=== PATIENT | female | born 1940 | race African-American/Black ===

== ENCOUNTER 2016-09-17 12:26 | Emergency (ER) | payer MEDICARE, OTHER ==
[~2016-09-17] VITALS: Ht 149.9 cm; Wt 73.0 kg
[~2016-09-17 12:26] MED LIST: ALBU0.63 NEB; ALBUAER3 INH; ASPI81 PO; CALTTAB5 PO; CARV6.252 PO; FORT200S; FURO20 PO; GABA100C4 PO; IMDU30TA PO; LORTA5 PO; NAPR250T PO; NEBUMIS6 INH; NITR.3 SL; NORV10TA PO; PERI8.6T PO; PROP40TA3 PO; PULM180I INH; PULM90IN INH; SIMV40TA PO; VITA500015 PO; ZOCO40TA PO
[2016-09-17 12:29] VITALS: BP 161/73; PULSE 70; RESP 16; TEMP 97.7; O2SAT 95
[2016-09-17] MEDS ORDERED: ONDANSETRON HCL 4 MG/2 ML VIAL IV PUSH ONE (14:15)
[2016-09-17] MEDS ORDERED: MORPHINE SULFATE 4 MG/ML INJ IV PUSH ONE (14:15)
--- NOTE | 2016-09-17 14:29 | PD ---
HPI Chief Complaint: Fall Time Seen by Provider: 14:24 Travel History International Travel<30 days: No Contact w/Intl Traveler<30days: No Traveled to known affect area: No History of Present Illness HPI 76-year-old female that presents to the ED for evaluation of pain to her left ribs and back. Per patient she's had this for the past 2 weeks. Per patient she had a trip and fall about 2 weeks ago. Per patient she landed on her left side. She states that she did not see anybody for this during that time and went to see her regular doctor last week and was given Tylenol 3 but not resolution of the symptoms. Per patient the pain gets worse with cough, laughing, deep breaths. Patient and family members are mainly concerned because the pain is not improving. Patient states that she used to take blood thinners but daughter is not sure. She does note that she used to take blood thinners for heart problems but family is not really sure if patient still taking them, patient tells me that she's been off of them for almost a year. They do tell me that she did hit her head but they weren't too concerned about it. She's been acting normal. Patient has full range of motion of the upper and lower extremities with no pain. She denies any lower back pain other than her chronic back pain from a previous fracture. She is able to ambulate. She states that the pain gets to be severe 8 out of 10 and gets worse with movement. Pain medication given to by her doctor as well as OTC anti- inflammatories seem to help with the pain but done completely alleviated. Patient was brought here for evaluation of the pain. Per patient the pain wasn' t too bad the first day but worsened on the second day. PFSH Past Medical History Arthritis: No Asthma: Yes Autoimmune Disease: No Blood Disorders: No Anxiety: No Depression: No Heart Rhythm Problems: Yes (PSVT) Cancer: No Cardiovascular Problems: Yes (HTN) High Cholesterol: No Chemotherapy: No Chest Pain: Yes Congestive Heart Failure: No COPD: No Cerebrovascular Accident: No Diabetes: No Diminished Hearing: No Endocrine: No Gastrointestinal Disorders: No GERD: No Glaucoma: No Genitourinary: No Headaches: No Hepatitis: No Hiatal Hernia: No Heparin Induced Thrombocytopen: No Hypertension: Yes Immune Disorder: No Implanted Vascular Access Dvce: No Kidney Stones: No Musculoskeletal: No Neurologic: No Psychiatric: No Reproductive: No Migraines: No Myocardial Infarction: No Radiation Therapy: No Renal Failure: No Seizures: No Sickle Cell Disease: No Sleep Apnea: No Thyroid Disease: No Ulcer: No Menopausal: Yes Past Surgical History Abdominal Surgery: Yes (APPY. AND 2 HERNIA REPAIRS.) AICD: No Appendectomy: Yes Arteriovenous Shunt: No Cholecystectomy: No Insulin Pump: No Joint Replacement: No Pacemaker: No Other Surgery: Yes Social History Alcohol Use: Yes (BEER EVERY NOW AND THEN ) Tobacco Use: No Substance Use: No Allergies-Medications (Allergen,Severity, Reaction): Coded Allergies: Propranolol (Verified Allergy, Severe, Dizziness, 09/03/16) Lisinopril (Verified Allergy, Unknown, 09/03/16) Reported Meds & Prescriptions Reported Meds & Active Scripts Active Lortab (Hydrocodone-Acetaminophen) 5-325 Mg Tab 1 Tab PO Q6H PRN Azithromycin 250 Mg Tab 250 Mg PO DIRECTED Take 2 tabs (500 mg) on day 1 then 1 tab daily x 4 days. Pulmicort Flexhaler (Budesonide Powder Inh) 180 Mcg/Act Inhp 180 Mcg INH Q12HR Naproxen 250 Mg Tab 250 Mg PO BID Pulmicort Flexhaler (Budesonide Powder Inh) 90 Mcg/Act Inhp 90 Mcg INH Q12HR Proair Hfa 8.5 GM Inh (Albuterol Sulfate) 90 Mcg/Act Aer 1 Puff INH Q4H PRN 108 mcg/actuation Simvastatin 40 Mg Tab 40 Mg PO HS Propranolol (Propranolol HCl) 40 Mg Tab 40 Mg PO Q12HR Accuneb 0.63 mg/3 ml (Albuterol Sulfate) 0.63 Mg/3 Ml Neb 0.63 Mg NEB DIRECTED Nebulizer (Miscellaneous Medication) Mis 1 Unit INH DIRECTED Carvedilol 6.25 mg (Carvedilol) 6.25 Mg Tab 1 Tab PO BID Gabapentin 100 Mg Cap 100 Mg PO HS Calcium Carbonate 1,500 Mg Tab 1,500 Mg PO BID Vitamin D3 (Cholecalciferol) 5,000 Unit Cap 5,000 Unit PO DAILY Norvasc (Amlodipine Besylate) 10 Mg Tab 1 Tab PO DAILY Diana 5-325 mg (Hydrocodone-Acetaminophen 5-325 mg) 5 mg/325 mg Tab 1 Tab PO Q4H PRN Imdur (Isosorbide Mononitrate) 30 Mg Tab 30 Mg PO DAILY Lasix 20 Mg Tab (Furosemide) 20 Mg Tab 20 Mg PO DAILY Fortical (Calcitonin [place]) 200 Mg/Act Spr 1 [place] NA DAILY Tiffany-Colace 8.6-50 mg (Sennosides-Docusate Sodium) 1 Tab Tab 1 Tab PO BID PRN Zocor 40 mg (Simvastatin) 40 Mg Tab 1 Tab PO HS 30 Days Nitrostat (Nitroglycerin) 0.3 Mg Subl 0.3 Mg SL PRN FOR CHEST PAIN Aspirin 81 Mg Tab 81 Mg PO DAILY Review of Systems General / Constitutional: No: Fever, Chills, Weight Gain, Weight Loss, Other Eyes: No: Diploplia, Blurred Vision, Photophobia, Drainage, Redness, Foreign Body Sensation, Pain, Tearing, Blind Spots, Visual changes, Blindness, Other HENT: No: Headaches, Vertigo, Lightheadedness, Sore Throat, Rhinitis, Rhinorrhea, Congestion, Nosebleed, Neck Stiffness, Neck Pain, Masses, Gingival Bleeding, Dental Difficulties, Ear Discharge, Earache, Other Cardiovascular: Positive: Chest Pain or Discomfort, No: Palpitations, Irregular Rhythm, Tachycardia, Diaphoresis, Syncope, Dyspnea on exertion, Varicosities, Edema, Cyanosis, Varicosities, Phlebitis, Claudication, Other Respiratory: No: Cough, Shortness of Breath, Wheezing, Sneezing, Orthopnea, Hemoptysis, Stridor, Night Sweats, Pleuritic Pain, Other Gastrointestinal: No: Nausea, Vomiting, Diarrhea, Abdominal Pain, Hematemesis, Hematochezia, Constipation, Changes in Bowel Habits, Indigestion, Dysphagia, Loss of Appetite, Other Genitourinary: No: Urgency, Frequency, Dysuria, Nocturia, Hematuria, Decreased Urinary Output, Oliguria, Hesitancy, Dribbling, Incontinence, Pelvic Pain, Flank Pain, Dyspareunia, Discharge, Dysmenorrhea, Menorrhagia, Metorrhagia, Vaginal Bleeding, Other Skin: No Rash, No Itching, No Dryness, No Lumps, No Hives, No Change in Pigmentation, No Change in nails, No Alopecia, No Lesions, No Breast Lumps, No Breast Tenderness, No Breast Swelling, No Other Neurologic: No: Weakness, Dizziness, Syncope, Focal Abnormalities, Coordination Problem, Tremor, Ataxia, Headache, Change in Mentation, Slurred Speech, Paresthesia, Incontinence, Seizures, Sensory Disturbance, Other Psychiatric: No: Anxiety, Depression, Suicidal Ideations, Disorder of Thought, Mood Disorder, Substance Abuse, Homicidal Ideation, Other Endocrine: No: Heat Intolerance, Cold Intolerance, Polyuria, Polydipsia, Other Hematologic/Lymphatic: No: Easy Bruising, Lymph Node Enlargement, Other Physical Exam Narrative GENERAL: SKIN: Warm and dry. HEAD: Atraumatic. Normocephalic. EYES: Pupils equal and round. No scleral icterus. No injection or drainage. ENT: No nasal bleeding or discharge. Mucous membranes pink and moist. Tongue is midline. No uvula deviation. NECK: Trachea midline. No JVD. CARDIOVASCULAR: Regular rate and rhythm. No murmurs, S3, S4. RESPIRATORY: No accessory muscle use. Clear to auscultation. Breath sounds equal bilaterally. GASTROINTESTINAL: Abdomen soft, non-tender, nondistended. Hepatic and splenic margins not palpable. MUSCULOSKELETAL: Extremities without clubbing, cyanosis, or edema. No obvious deformities. Full range of motion of the upper and lower extremities bilaterally. Patient has no obvious deformity on the left chest. Patient does have some reproducible pain with deep breaths as well as with touch but no obvious injury. NEUROLOGICAL: Awake and alert. No obvious cranial nerve deficits. Motor grossly within normal limits. Five out of 5 muscle strength in the arms and legs. Normal speech. PSYCHIATRIC: Appropriate mood and affect; insight and judgment normal. Data Data Last Documented VS Vital Signs Date Time Temp Pulse Resp B/P Pulse Ox O2 Delivery O2 Flow Rate FiO2 09/17/16:17 69 18 96 Room Air 09/17/16 12:29 97.7 161/73 Orders Electrocardiogram (09/17/16 14:14) Complete Blood Count With Diff (09/17/16 14:14) Basic Metabolic Panel (Bmp) (09/17/16 14:14) Prothrombin Time / Inr (Pt) (09/17/16 14:14) Act Partial Throm Time (Ptt) (09/17/16 14:14) Troponin I (09/17/16 14:14) Ribs, Uni (W/Exp Cxr-Min 3vw) (09/17/16 ) Morphine Inj (Morphine Inj) (09/17/16 14:15) Ondansetron Inj (Zofran Inj) (09/17/16 14:15) Ct Brain W/O Iv Contrast(Rout) (09/17/16 ) Ct Thorax/ Chest W Iv Contrast (09/17/16 ) Iohexol 350 Inj (Omnipaque 350 Inj) (09/17/16 16:50) Labs Laboratory Tests Test 09/17/16 14:30 White Blood Count 6.2 TH/MM3 Red Blood Count 4.52 MIL/MM3 Hemoglobin 14.5 GM/DL Hematocrit 41.8 % Mean Corpuscular Volume 92.5 FL Mean Corpuscular Hemoglobin 32.1 PG Mean Corpuscular Hemoglobin 34.7 % Concent Red Cell Distribution Width 14.1 % Platelet Count 271 TH/MM3 Mean Platelet Volume 7.9 FL Neutrophils (%) (Auto) 54.0 % Lymphocytes (%) (Auto) 33.3 % Monocytes (%) (Auto) 12.1 % Eosinophils (%) (Auto) 0.2 % Basophils (%) (Auto) 0.4 % Neutrophils # (Auto) 3.3 TH/MM3 Lymphocytes # (Auto) 2.1 TH/MM3 Monocytes # (Auto) 0.8 TH/MM3 Eosinophils # (Auto) 0.0 TH/MM3 Basophils # (Auto) 0.0 TH/MM3 CBC Comment DIFF FINAL Differential Comment Prothrombin Time 10.7 SEC Prothromb Time International 1.0 RATIO Ratio Activated Partial 25.6 SEC Thromboplast Time Sodium Level 139 MEQ/L Potassium Level 4.2 MEQ/L Chloride Level 105 MEQ/L Carbon Dioxide Level 26.3 MEQ/L Anion Gap 8 MEQ/L Blood Urea Nitrogen 7 MG/DL Creatinine 0.69 MG/DL Estimat Glomerular Filtration 100 ML/MIN Rate Random Glucose 101 MG/DL Calcium Level 8.8 MG/DL Troponin I LESS THAN 0.02 NG/ML MDM Medical Decision Making Medical Screen Exam Complete: Yes Emergency Medical Condition: Yes Medical Record Reviewed: Yes Interpretation(s) Last Impressions Ribs X-Ray 09/17/16 0000 Signed Impressions: Service Date/Time: September 14:52 - CONCLUSION: Interstitial lung disease and left basilar airspace disease. No evidence of pneumothorax. No evidence of displaced rib fracture. Marcellus Slade MD Head CT 09/17/16 0000 Signed Impressions: Service Date/Time: September 16:03 - CONCLUSION: 1. White matter ischemic changes. No acute intracranial abnormality. Santos Wise MD CBC & BMP Diagram 09/17/16 14:30 CT of the chest show chronic changes but no sign of acute disease. Lung nodule was noted and recommendation is for follow-up in [address] Also nodule on the thyroid noted. Coags within normal limits. EKG shows sinus rhythm with no sign of acute ischemia or arrhythmia. Read by me and attending. Troponin negative. Differential Diagnosis Chest pain versus rib fracture versus contusion versus costochondritis versus less likely but still possible ACS Narrative Course 76-year-old female that presents to the ED for evaluation of left chest pain after fall. Patient was properly examined and was found to have signs and symptoms consistent with appears to be traumatic chest injury. Less likely ACS the patient does tell me that the pain started worse on the second day in the first. At this time we'll do imaging as well as labs to rule out any sign of ACS as well as fracture or internal injuries. Patient is not really sure if she is taking the blood thinner or not. CT of the head was ordered secondary to head injury. She is given IV pain medications. Labs and imaging were essentially unremarkable. Patient is uncertain chronic changes on the CT as well as x-ray but no sign of acute disease. Patient possibly has early pneumonitis. Case discussed in my attending who recommends treating with antibiotics and pain medication. Patient was reassured. Patient was told to follow up closely with PCP. See ED for any worsening symptoms. Continue anti- inflammatories as needed. Diagnosis Primary Impression: Contusion of rib on left side Qualified Code: S20.212A - Contusion of rib on left side, initial encounter Additional Impression: Pneumonitis Patient Instructions: General Instructions, Narcotic given in the ED Additional Instructions: Take medications as prescribed. Follow-up with PCP. See ED for any worsening symptoms. Do not drink or drive while taking pain medication. Apply ice or heat as needed for pain Med/Other Pt SpecificInfo: Prescription(s) given Scripts Hydrocodone-Acetaminophen (Lortab)5-325 Mg Tab1 Tab PO Q6H PRN (PAIN) #20 TAB Prov:Fred Delgado MD 09/17/16 Azithromycin 250 Mg [id number] Mg PO DIRECTED #6 TAB Take 2 tabs (500 mg) on day 1 then 1 tab daily x 4 days. Prov:Fred Delgado MD 09/17/16 Disposition: 01 DISCHARGE HOME Condition: Connor Wheeler Sep 17, 2016 14:29
[2016-09-17 14:41] LABS: AUTOMATED NEUTROPHIL # 3.3 TH/MM3 (1.8-7.7); BASOPHIL % 0.4 % (0.0-2.0); EOSINOPHIL % 0.2 % (0.0-4.0); HEMATOCRIT 41.8 % (35.0-46.0); HEMO FLAGS DIFF FINAL; LYMPH % 33.3 % (9.0-44.0); LYMPHOCYTE # 2.1 TH/MM3 (1.0-4.8); MEAN CELL VOLUME 92.5 FL (80.0-100.0); MEAN CORPUSCULAR HEMOGLOBIN 32.1 PG (27.0-34.0); MEAN CORPUSCULAR HGB CONC 34.7 % (32.0-36.0); MONO % 12.1 % (0.0-8.0); PLATELET COUNT 271 TH/MM3 (150-450); RED BLOOD COUNT 4.52 MIL/MM3 (4.00-5.30); RED CELL DISTRIBUTION WIDTH 14.1 % (11.6-17.2); WHITE BLOOD COUNT 6.2 TH/MM3 (4.0-11.0)
[2016-09-17 14:50] LABS: APTT (PATIENT) 25.6 SEC (24.3-30.1); PROTHROMBIN TIME - PATIENT 10.7 SEC (9.8-11.6)
[2016-09-17 15:28] LABS: ANION GAP 8 MEQ/L (5-15); BICARBONATE 26.3 MEQ/L (21.0-32.0); BLOOD UREA NITROGEN 7 MG/DL (7-18); CHLORIDE 105 MEQ/L (98-107); GLOMERULAR FILTRATION RATE 100 ML/MIN (>89); POTASSIUM 4.2 MEQ/L (3.5-5.1); SODIUM (NA) 139 MEQ/L (136-145)
--- NOTE | 2016-09-17 15:46 | RADRPT ---
EXAM DATE/TIME: 09/17/2016 14:52 [facility] COMPARISON: No previous studies available for comparison. INDICATIONS : Fall 3 days ago. Chest pain. MEDICAL HISTORY : None. SURGICAL HISTORY : None. ENCOUNTER: Initial ACUITY: 3 days PAIN SCORE: 6/10 LOCATION: Left chest FINDINGS: Multiple views of the left ribs were performed. There is no evidence of displaced fracture. No dest ructive lesions or areas of periosteal thickening are seen. Expiratory view of the chest is negative for pneumothorax. Diffuse interstitial prominence is evident throughout both lungs. Airspace disease is identified the left base. The mediastinal structures are midline. CONCLUSION: Interstitial lung disease and left basilar airspace disease. No evidence of pneumothorax. No evidence of displaced rib fracture. Marcellus Slade MD on September 17, 2016 at 15:29 Board Certified Radiologist. This report was verified electronically.
[2016-09-17] MEDS ORDERED: IOHEXOL 350 MG/ML 10 ML VIAL (for RAD DIAG) IV ONE (16:50)
--- NOTE | 2016-09-17 16:58 | RADRPT ---
EXAM DATE/TIME: 09/17/2016 16:03 [facility] COMPARISON: No previous studies available for comparison. INDICATIONS : Trauma, fall to weeks ago. RADIATION DOSE: 56.35 CTDIvol (mGy) MEDICAL HISTORY : Chronic obstructive pulmonary disease. Hypertension. SURGICAL HISTORY : None. ENCOUNTER: Initial ACUITY: 2 weeks PAIN SCALE: 3/10 LOCATION: cranial TECHNIQUE: Multiple contiguous axial images were obtained of the head. Using automated exposure control and adj ustment of the mA and/or kV according to patient size, radiation dose was kept as low as reasonably a chievable to obtain optimal diagnostic quality images. FINDINGS: CEREBRUM: The ventricles are normal for age. No evidence of midline shift, mass lesion, hemorrhage or acute in farction. No extra-axial fluid collections are seen. POSTERIOR FOSSA: The cerebellum and brainstem are intact. The 4th ventricle is midline. The cerebellopontine angle i s unremarkable. EXTRACRANIAL: The visualized portion of the orbits is intact. SKULL: The calvaria is intact. No evidence of skull fracture. CONCLUSION: 1. White matter ischemic changes. No acute intracranial abnormality. Santos Wise MD on September 17, 2016 at 16:53 Board Certified Radiologist. This report was verified electronically.
--- NOTE | 2016-09-17 17:05 | RADRPT ---
EXAM DATE/TIME: 09/17/2016 16:07 [facility] COMPARISON: No previous studies available for comparison. INDICATIONS : Fall two weeks ago,painleft side of chest. IV CONTRAST: 70 cc Omnipaque 350 (iohexol) IV RADIATION DOSE: 5.95 CTDIvol (mGy) MEDICAL HISTORY : Chronic obstructive pulmonary disease. Hypertension. SURGICAL HISTORY : None. ENCOUNTER: Initial ACUITY: 2 weeks PAIN SCALE: 3/10 LOCATION: Left chest TECHNIQUE: Volumetric scanning of the chest was performed. Using automated exposure control and adjustment of t he mA and/or kV according to patient size, radiation dose was kept as low as reasonably achievable to obtain optimal diagnostic quality images. FINDINGS: LUNGS: There is no consolidation or pneumothorax. Faint ground glass opacities identified throughout both dequan ngs. 2 subcentimeter nodules measuring 4-5 mm are identified in the right lower lobe. PLEURA: There is no pleural thickening or pleural effusion. MEDIASTINUM: The heart and great vessels demonstrate no acute abnormality. There is no mediastinal or hilar lymph adenopathy. AXILLAE: Within normal limits. No lymphadenopathy. SKELETAL: Within normal limits for patient age. MISCELLANEOUS: Large hypodense mass is identified left thyroid lobe. It measures 3.4 cm in diameter. Small gallstone s are identified in the gallbladder. CONCLUSION: Subtle bilateral groundglass parenchymal opacities characteristic of either early mil d interstitial edema or pneumonitis. 2 subcentimeter nodules in the right lower lobe; 6 month followup recommended. 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 No evidence of acute traumatic injury such as pneumothorax, displaced rib fracture or vascular injury . Thoracic spine is intact. Marcellus Slade MD on September 17, 2016 at 16:59 Board Certified Radiologist. This report was verified electronically.
[2016-09-17] MEDS ORDERED: HYDR-3533 PO (17:15)
[2016-09-17] MEDS ORDERED: AZIT250T3 PO (17:15)
[2016-09-17 17:59] VITALS: BP 134/78
--- NOTE | 2016-09-18 19:59 | EKG ---
Date Performed: 09/17/2016 Time Performed: 14:51:11 PTAGE: 76 years EKG: Sinus rhythm BORDERLINE LEFT AXIS DEVIATION NONSPECIFIC T-WAVE ABNORMALITY POOR R WAVE PROGRESSION BORDERLINE ECG PREVIOUS TRACING : 08/16/2009 06.05 Compared to prior tracing no significant change DOCTOR: Josué Sinclair Interpretating Date/Time 09/18/2016 19:58:38
[2016-10-23] MEDS ORDERED: BUTA1CAP PO (10:52)
[2016-10-23] MEDS ORDERED: PROP60TA PO (10:53)
[2016-11-23] MEDS ORDERED: SIMV40TA PO (12:06)
[2016-12-29] MEDS ORDERED: NAPR250T PO (09:21)
[2016-12-30] MEDS ORDERED: FURO20TA PO (10:22)
== END 2016-09-17 17:15 | disposition home or self-care (01) ==
LOC: NEPE 12:26
DX: S20.212A Contusion of left front wall of thorax, initial encounter (principal); J18.9 Pneumonia, unspecified organism; I47.1 Supraventricular tachycardia; I10 Essential (primary) hypertension
CPT/HCPCS: 70450; 71101; 71260; 80048; 84484; 85025; 85610; 85730; 93005; 96374; 96375; 99284; J2270; J2405; Q9967

== ENCOUNTER 2017-06-25 10:20 | Inpatient (IN) | payer MEDICARE, OTHER ==
[~2017-06-25 10:20] MED LIST changes: -ALBUAER3 INH; +AMLO10TA2 PO; +BUTA1CAP PO; -FURO20 PO; +FURO20TA PO; -IMDU30TA PO; +ISOS30TA3 PO; -NAPR250T PO; +NAPR250T4 PO; -NEBUMIS6 INH; -NORV10TA PO; -PERI8.6T PO; -PROP40TA3 PO; +PROP60TA PO; +VENTAER INH; -ZOCO40TA PO
[2017-06-25 10:23] VITALS: BP 140/66; PULSE 73; RESP 18; TEMP 101.7; O2SAT 90
[2017-06-25] MEDS ORDERED: methylPREDNISolone SOD SUCC 125 MG/2 ML VIAL IV PUSH ONE (10:45)
[2017-06-25] MEDS ORDERED: AZITHROMYCIN INJ 500 MG in SODIUM CHLOR 0.9% 250 ML INJ 250 ML IV STA (10:45)
[2017-06-25] MEDS ORDERED: cefTRIAXone INJ 2,000 MG in SODIUM CHLORIDE 0.9% INJ 100 ML IV STA (10:45)
[2017-06-25] MEDS ORDERED: ACETAMINOPHEN 325 MG TAB PO ONE (10:45)
[2017-06-25] MEDS ORDERED: SODIUM CHLOR 0.9% 1000 ML INJ 1,000 ML IV ONE (10:45)
[2017-06-25] MEDS: RESP: ALBUTEROL 2.5 MG/IPRATROPIUM 0.5 MG NEB (SCH) INH ×2 (10:58→10:59)
[2017-06-25 10:59] VITALS: O2SAT 93
--- NOTE | 2017-06-25 11:08 | RADRPT ---
EXAM DATE/TIME: 06/25/2017 10:48 [facility] COMPARISON: No previous studies available for comparison. INDICATIONS : Short of breath MEDICAL HISTORY : None. SURGICAL HISTORY : None. ENCOUNTER: Initial ACUITY: 1 day PAIN SCORE: Non-responsive. LOCATION: Bilateral chest FINDINGS: Left lower lobe airspace consolidation and likely trace pleural effusion. Cardiac silhouette is in th e upper limits of normal in size. Bony thorax is intact. CONCLUSION: 1. Left lower lobe air space consolidation and likely trace pleural effusion. Findings are concerning for pneumonia in the appropriate clinical setting. Janusz Chris MD on June 25, 2017 at 11:01 Board Certified Radiologist. This report was verified electronically.
[2017-06-25 11:11] LABS: AUTOMATED NEUTROPHIL # 20.4 TH/MM3 (1.8-7.7); BASOPHIL # 0.1 TH/MM3 (0-0.2); BASOPHIL % 0.3 % (0.0-2.0); HEMATOCRIT 40.3 % (35.0-46.0); HEMOGLOBIN 13.7 GM/DL (11.6-15.3); LYMPH % 3.7 % (9.0-44.0); LYMPHOCYTE # 0.9 TH/MM3 (1.0-4.8); MEAN CORPUSCULAR HEMOGLOBIN 30.6 PG (27.0-34.0); MEAN PLATELET VOLUME 8.1 FL (7.0-11.0); MONO % 9.6 % (0.0-8.0); MONOCYTE # 2.3 TH/MM3 (0-0.9); NEUT % 86.4 % (16.0-70.0); PLATELET COUNT 299 TH/MM3 (150-450); RED BLOOD COUNT 4.48 MIL/MM3 (4.00-5.30); RED CELL DISTRIBUTION WIDTH 13.8 % (11.6-17.2); WHITE BLOOD COUNT 23.7 TH/MM3 (4.0-11.0)
[2017-06-25 11:17] LABS: INTERNATIONAL NORMALIZED RATIO 1.2 RATIO; PROTHROMBIN TIME - PATIENT 11.8 SEC (9.8-11.6)
[2017-06-25 11:19] LABS: ALBUMIN 2.4 GM/DL (3.4-5.0); AST (GOT) 37 U/L (15-37); BICARBONATE 26.9 MEQ/L (21.0-32.0); BLOOD UREA NITROGEN 9 MG/DL (7-18); CALCIUM 8.5 MG/DL (8.5-10.1); CHLORIDE 95 MEQ/L (98-107); CREATININE 0.71 MG/DL (0.50-1.00); GLOMERULAR FILTRATION RATE 97 ML/MIN (>89); GLUCOSE,RANDOM 140 MG/DL (74-106); SODIUM (NA) 131 MEQ/L (136-145)
[2017-06-25 11:21] LABS: ALT (GPT) 30 U/L (10-53); LACTIC ACID SEPSIS PROTOCOL 2.1 mmol/L (0.4-2.0)
[2017-06-25 11:24] LABS: ALKALINE PHOSPHATASE 107 U/L (45-117); TOTAL BILIRUBIN ADULT 1.2 MG/DL (0.2-1.0); TROPONIN I LESS THAN 0.02 NG/ML (0.02-0.05)
--- NOTE | 2017-06-25 12:29 | PD ---
HPI Chief Complaint: Fever Time Seen by Provider: 10:37 Travel History International Travel<30 days: No Contact w/Intl Traveler<30days: No Traveled to known affect area: No History of Present Illness HPI Patient is a 77-year-old female who comes in complaining of shortness of breath and fever. She has been sick with cold-like symptoms for the past 5 days, but became acutely worse in the past 2 days. She has been using albuterol at home without relief. She denies any chest pain, but has some pain with coughing. She's had some nausea and vomiting, mostly after coughing. She denies any leg pain or swelling. PFSH Past Medical History Arthritis: No Asthma: Yes Autoimmune Disease: No Blood Disorders: No Anxiety: No Depression: No Heart Rhythm Problems: Yes (PSVT) Cancer: No Cardiovascular Problems: Yes (HTN) High Cholesterol: Yes Chemotherapy: No Chest Pain: Yes Congestive Heart Failure: No COPD: No Cerebrovascular Accident: No Diabetes: No Diminished Hearing: No Endocrine: No Gastrointestinal Disorders: No GERD: No Glaucoma: No Genitourinary: No Headaches: No Hepatitis: No Hiatal Hernia: No Heparin Induced Thrombocytopen: No Hypertension: Yes Immune Disorder: No Implanted Vascular Access Dvce: No Kidney Stones: No Musculoskeletal: No Neurologic: No Psychiatric: No Reproductive: No Respiratory: Yes (COPD) Migraines: No Myocardial Infarction: No Radiation Therapy: No Renal Failure: No Seizures: No Sickle Cell Disease: No Sleep Apnea: No Thyroid Disease: No Ulcer: No Menopausal: Yes Past Surgical History Abdominal Surgery: Yes (APPY. AND 2 HERNIA REPAIRS.) AICD: No Appendectomy: Yes Arteriovenous Shunt: No Cardiac Surgery: Yes (stent ) Cholecystectomy: No Eye Surgery: Yes (cataracts bilat ) Insulin Pump: No Joint Replacement: No Pacemaker: No Other Surgery: Yes Social History Alcohol Use: Yes (BEER EVERY NOW AND THEN ) Tobacco Use: No Substance Use: No Allergies-Medications (Allergen,Severity, Reaction): Coded Allergies: propranolol (Unverified Allergy, Severe, Dizziness, 06/25/17) lisinopril (Unverified Allergy, Unknown, 06/25/17) Reported Meds & Prescriptions Reported Meds & Active Scripts Active Ventolin Hfa 18 GM Inh (Albuterol Sulfate) 90 Mcg/Act Aer 1 Puff INH Q4H PRN Isosorbide Mononitrate ER (Isosorbide Mononitrate) 30 Mg Slava 30 Mg PO DAILY Carvedilol 6.25 Mg Tab 6.25 Mg PO BID Amlodipine (Amlodipine Besylate) 10 Mg Tab 10 Mg PO DAILY Naproxen 250 Mg Tab 250 Mg PO BID Furosemide 20 Mg Tab 20 Mg PO DAILY Simvastatin 40 Mg Tab 40 Mg PO HS Propranolol (Propranolol HCl) 60 Mg Tab 60 Mg PO Q12HR Fioricet (Jpetqleuyn-Nucupvnsjgqit-Nqjocpce) 50-300-40 Mg Cap 1 Cap PO Q4H PRN Pulmicort Flexhaler (Budesonide Powder Inh) 90 Mcg/Act Inhp 90 Mcg INH Q12HR Review of Systems Except as stated in HPI: all other systems reviewed are Neg General / Constitutional: Positive: Fever HENT: No: Headaches, Lightheadedness Cardiovascular: No: Chest Pain or Discomfort Respiratory: Positive: Cough, Shortness of Breath Gastrointestinal: Positive: Nausea, No: Abdominal Pain Musculoskeletal: No: Myalgias, Edema Skin: No Rash, No Change in Pigmentation Neurologic: No: Weakness, Dizziness Physical Exam Narrative GENERAL: Awake and alert, in no acute distress. SKIN: Focused skin assessment warm/dry. No wounds or signs of infection. HEAD: Atraumatic. Normocephalic. EYES: Pupils equal and round. No scleral icterus. ENT: Mucous membranes pink and moist. NECK: Trachea midline. No JVD. CARDIOVASCULAR: Regular rate and rhythm. No murmur appreciated. RESPIRATORY: No accessory muscle use. Decreased breath sounds, left lower lobe crackles. Breath sounds equal bilaterally. GASTROINTESTINAL: Abdomen soft, non-tender, nondistended. Hepatic and splenic margins not palpable. MUSCULOSKELETAL: No obvious deformities. No clubbing. No cyanosis. No edema. NEUROLOGICAL: Awake and alert. No obvious cranial nerve deficits. Motor grossly within normal limits. Normal speech. PSYCHIATRIC: Appropriate mood and affect; insight and judgment normal. Data Data Last Documented VS Vital Signs Date Time Temp Pulse Resp B/P (MAP) Pulse Ox O2 Delivery O2 Flow Rate FiO2 06/25/17 10:59 93 Nasal Cannula 2.00 06/25/17 10:57 (90) 06/25/17 10:36 70 40 06/25/17 10:23 101.7 Orders Orders Sepsis Workup Initiated (06/25/17 ) Electrocardiogram (06/25/17 10:45) Complete Blood Count With Diff (06/25/17 10:45) Comprehensive Metabolic Panel (06/25/17 10:45) Prothrombin Time / Inr (Pt) (06/25/17 10:45) Act Partial Throm Time (Ptt) (06/25/17 10:45) Lactic Acid Sepsis Protocol (06/25/17 10:45) Troponin I (06/25/17 10:45) Urinalysis - C+S If Indicated (06/25/17 10:45) Influenzae A/B Antigen (06/25/17 10:45) Blood Culture (06/25/17 10:45) Chest, Single Ap (06/25/17 10:45) Blood Glucose (06/25/17 10:45) Ecg Monitoring (06/25/17 10:45) Iv Access Insert/Monitor (06/25/17 10:45) Oximetry (06/25/17 10:45) Oxygen Administration (06/25/17 10:45) Ceftriaxone Inj (Rocephin Inj) (06/25/17 10:45) Azithromycin Inj (Zithromax Inj) (06/25/17 10:45) Albuterol-Ipratropium Neb (Duoneb Neb) (06/25/17 10:45) Methylprednisolone So Succ Inj (Solumedr (06/25/17 10:45) Acetaminophen (Tylenol) (06/25/17 10:45) Sodium Chlor 0.9% 1000 Ml Inj (Ns 1000 M (06/25/17 10:45) Admit Order (Ed Use Only) (06/25/17 ) Labs Laboratory Tests Test 06/25/17 10:50 White Blood Count 23.7 TH/MM3 Red Blood Count 4.48 MIL/MM3 Hemoglobin 13.7 GM/DL Hematocrit 40.3 % Mean Corpuscular Volume 90.0 FL Mean Corpuscular Hemoglobin 30.6 PG Mean Corpuscular Hemoglobin Concent 34.0 % Red Cell Distribution Width 13.8 % Platelet Count 299 TH/MM3 Mean Platelet Volume 8.1 FL Neutrophils (%) (Auto) 86.4 % Lymphocytes (%) (Auto) 3.7 % Monocytes (%) (Auto) 9.6 % Eosinophils (%) (Auto) 0.0 % Basophils (%) (Auto) 0.3 % Neutrophils # (Auto) 20.4 TH/MM3 Lymphocytes # (Auto) 0.9 TH/MM3 Monocytes # (Auto) 2.3 TH/MM3 Eosinophils # (Auto) 0.0 TH/MM3 Basophils # (Auto) 0.1 TH/MM3 CBC Comment AUTO DIFF Differential Comment AUTO DIFF CONFIRMED Platelet Estimate NORMAL Platelet Morphology Comment NORMAL Red Cell Morphology Comment NORMAL Prothrombin Time 11.8 SEC Prothromb Time International Ratio 1.2 RATIO Activated Partial Thromboplast Time 26.8 SEC Blood Urea Nitrogen 9 MG/DL Creatinine 0.71 MG/DL Random Glucose 140 MG/DL Total Protein 9.0 GM/DL Albumin 2.4 GM/DL Calcium Level 8.5 MG/DL Alkaline Phosphatase 107 U/L Aspartate Amino Transf (AST/SGOT) 37 U/L Alanine Aminotransferase (ALT/SGPT) 30 U/L Total Bilirubin 1.2 MG/DL Sodium Level 131 MEQ/L Potassium Level 3.2 MEQ/L Chloride Level 95 MEQ/L Carbon Dioxide Level 26.9 MEQ/L Anion Gap 9 MEQ/L Estimat Glomerular Filtration Rate 97 ML/MIN Lactic Acid Level 2.1 mmol/L Troponin I LESS THAN 0.02 NG/ML [facility] Medical Decision Making Medical Screen Exam Complete: Yes Emergency Medical Condition: Yes Medical Record Reviewed: Yes Interpretation(s) ECG shows sinus rhythm at 66, no ST elevation or depression, T-wave inversions in leads V4 through V6 Differential Diagnosis Pneumonia versus COPD exacerbation versus influenza versus sepsis Narrative Course Patient is a 77-year-old female comes in complaining of fever and shortness of breath. Exam shows left lower lobe crackles. IV established, labs sent. Labs showed elevated white blood cell count. X-rays concerning for left lower lobe pneumonia. Patient given IV fluids, Tylenol, DuoNeb, Solu-Medrol. Given Rocephin and azithromycin. Admitted for further management. Diagnosis Primary Impression: CAP (community acquired pneumonia) Qualified Codes: J18.1 - Lobar pneumonia, unspecified organism Additional Impressions: Asthma Qualified Codes: J45.901 - Unspecified asthma with (acute) exacerbation Sepsis Qualified Codes: A41.9 - Sepsis, unspecified organism Admitting Information Admitting Physician Requests: Admit Jenifer Mcgrath MD Jun 25, 2017 12:29
[2017-06-25] MEDS ORDERED: RESP: ALBUTEROL 2.5 MG/IPRATROPIUM 0.5 MG NEB (PRN) INH (13:45)
[2017-06-25] MEDS ORDERED: LORazepam 2 MG TAB PO PRN (13:45)
[2017-06-25] MEDS ORDERED: ONDANSETRON HCL 4 MG/2 ML VIAL IV PUSH PRN (13:45)
[2017-06-25] MEDS ORDERED: FLUMAZENIL 0.5 MG/5 ML VIAL IV PUSH PRN ×2 (13:45)
[2017-06-25] MEDS ORDERED: SODIUM CHLORIDE 0.9% FLUSH 10 ML FLUSH IV FLUSH PRN (13:45)
--- NOTE | 2017-06-25 13:47 | HHI.HP ---
[facility] Service Family Medicine Primary Care Physician Nathalie Barksdale MD Admission Diagnosis pneumonia, sepsis Diagnoses: International Travel<30 Days: No Contact w/Intl Traveler<30days: No Known Affected Area: No History of Present Illness This is a 77-year-old -[place] female with a past medical history significant for hyperlipidemia, benign essential tremor, A. fib with ablation, and hypertension. She is presenting to the [place] ED with complaints of 5 days of cough and feeling ill. She states that she has been feverish throughout the entire timeframe. She's been progressively getting weaker. Today she was extremely short of breath and was feeling chest pain, and it took several family members to get her out of the bed and into the car to take her to the hospital. She's been having increase her albuterol use but has not been getting any relief. She denies feeling nauseated, though occasionally feels like she might vomit after coughing fits. She denies any abdominal pain or diarrhea. No recorded fever at home but highest temperature here in the hospital was 101.7. Chest x-ray in the ED showed F lower lobe infiltrate. She is now being admitted to the hospital for pneumonia. (King Rogel MD, R3) Review of Systems Constitutional: COMPLAINS OF: Fatigue, Fever, Chills, Change in appetite ( decreased), DENIES: Weight loss, Dizziness, Night Sweats Endocrine: DENIES: Polydipsia, Polyuria Eyes: DENIES: Blurred vision, Eye pain, Photosensitivity, Double Vision Ears, nose, mouth, throat: COMPLAINS OF: Running Nose, Sinus Pain, DENIES: Tinnitus, Nasal discharge, Throat pain, Hoarseness, Toothache Respiratory: COMPLAINS OF: Cough, Snoring, Wheezing, Sputum production, Shortness of breath, DENIES: Apneas, Hemoptysis Cardiovascular: COMPLAINS OF: Chest pain, DENIES: Palpitations, Syncope, Dyspnea on Exertion, Orthopnea, Claudication Gastrointestinal: DENIES: Abdominal pain, Black stools, Bloody stools, Diarrhea , Nausea, Vomiting, Anorexia Genitourinary: DENIES: Urinary incontinence, Dysuria, Nocturia Musculoskeletal: COMPLAINS OF: Joint pain, Muscle aches, Stiffness, Back pain, DENIES: Joint Swelling, Neck pain Integumentary: DENIES: Rash Hematologic/lymphatic: DENIES: Bruising Immunologic/allergic: DENIES: Eczema Neurologic: DENIES: Abnormal gait, Headache, Localized weakness, Seizures, Poor Balance Psychiatric: DENIES: Anxiety, Depression (King Rogel MD, R3) Past Family Social History Past Medical History PMH: dyslipidemia asthma benign essential tremor HTN vag deliveries A. fib with ablation Past Surgical History PSH: atrial ablation for afib/flutter 08/2009 hernia repairs x3 Cataract surgery: 2009 Reported Medications Reported Meds & Active Scripts Active Ventolin Hfa 18 GM Inh (Albuterol Sulfate) 90 Mcg/Act Aer 1 Puff INH Q4H PRN Isosorbide Mononitrate ER (Isosorbide Mononitrate) 30 Mg Slava 30 Mg PO DAILY Carvedilol 6.25 Mg Tab 6.25 Mg PO BID Amlodipine (Amlodipine Besylate) 10 Mg Tab 10 Mg PO DAILY Naproxen 250 Mg Tab 250 Mg PO BID Furosemide 20 Mg Tab 20 Mg PO DAILY Simvastatin 40 Mg Tab 40 Mg PO HS Propranolol (Propranolol HCl) 60 Mg Tab 60 Mg PO Q12HR Fioricet (Kngdpvyccg-Xiloeipmpnecq-Rqkmejup) 50-300-40 Mg Cap 1 Cap PO Q4H PRN Pulmicort Flexhaler (Budesonide Powder Inh) 90 Mcg/Act Inhp 90 Mcg INH Q12HR (King Rogel MD, R3) Allergies: Coded Allergies: propranolol (Unverified Allergy, Severe, Dizziness, 06/25/17) lisinopril (Unverified Allergy, Unknown, 06/25/17) Active Ordered Medications Current Medications Medications (Trade) Dose Ordered Sig/Donaldo Route Start Time Stop Time Status Last Admin Sodium Chloride 1,000 ml @ 100 mls/hr Q10H IV 06/25/17 14:30 (NS Flush) 2 ml UNSCH PRN IV FLUSH 06/25/17 13:45 (NS Flush) 2 ml BID IV FLUSH 06/25/17 21:00 Ceftriaxone Sodium 1000 mg/ Sodium Chloride 100 ml @ 200 mls/hr Q24H IV 06/26/17 09:00 UNV Azithromycin 500 mg/Sodium Chloride 250 ml @ 250 mls/hr Q24H IV 06/26/17 09:00 UNV (Zofran Inj) 4 mg Q6H PRN IV PUSH 06/25/17 13:45 (Duoneb Neb) 1 ampule Q4HR NEB PRN INH 06/25/17 13:45 (SoluMEDROL INJ) 40 mg Q12H IV PUSH 06/25/17 23:00 (Heparin Inj) 5,000 units Q8H SQ 06/25/17 15:00 (Romazicon Inj) 0.2 mg Q1M PRN IV PUSH 06/25/17 13:45 (Ativan) 1 mg Q4H PRN PO 06/25/17 13:45 (Ativan) 2 mg Q2H PRN PO 06/25/17 13:45 Family History FHx: M breast cancer in late 50s F unknown sister & aunt with DM2 brother unk Social History SHx: no tobacco 6 Beers a day lives with 1 grand daughter 17 years old (King Rogel MD, R3) Physical Exam Vital Signs Vital Signs Date Time Temp Pulse Resp B/P (MAP) Pulse Ox O2 Delivery O2 Flow Rate FiO2 06/25/17 10:59 93 Nasal Cannula 2.00 06/25/17 10:57 (90) Nasal Cannula 2.00 06/25/17 10:57 92 Nasal Cannula 2.00 06/25/17 10:41 93 Nasal Cannula 2.00 06/25/17 10:36 70 40 90 Room Air 06/25/17 10:23 101.7 73 18 140/66 (90) 90 Physical Exam GENERAL: This is a well-nourished, well-developed patient, lying in bed with noticeable tremors requiring oxygen. SKIN: No rashes, ecchymoses or lesions. Cool and dry. HEAD: Atraumatic. Normocephalic. No temporal or scalp tenderness. EYES: Pupils equal round and reactive. Extraocular motions intact. No scleral icterus. No injection or drainage. ENT: Nose without bleeding, purulent drainage or septal hematoma. Throat without erythema, tonsillar hypertrophy or exudate. Uvula midline. Airway patent. Tympanic membranes visualized, nonbulging nonerythematous normal borders. NECK: Trachea midline. No JVD or lymphadenopathy. Supple, nontender, no meningeal signs. CARDIOVASCULAR: Regular rate and rhythm without murmurs, gallops, or rubs. RESPIRATORY: Expiratory wheezing throughout. Increased respiratory effort. Decreased breath sounds at the left lower lobe. Crackles throughout bilaterally. Breath sounds present throughout bilaterally GASTROINTESTINAL: Abdomen soft, non-tender, nondistended. No hepato-splenomegaly , or palpable masses. No guarding. MUSCULOSKELETAL: Extremities without clubbing, cyanosis, or edema. No joint tenderness, effusion, or edema noted. No calf tenderness. Negative Homans sign bilaterally. NEUROLOGICAL: Awake and alert. Cranial nerves II through XII intact. Motor and sensory grossly within normal limits. Able to move all extremities. Normal speech. Laboratory Laboratory Tests Test 06/25/17 10:50 06/25/17 13:20 06/25/17 13:30 White Blood Count 23.7 Red Blood Count 4.48 Hemoglobin 13.7 Hematocrit 40.3 Mean Corpuscular Volume 90.0 Mean Corpuscular Hemoglobin 30.6 Mean Corpuscular Hemoglobin Concent 34.0 Red Cell Distribution Width 13.8 Platelet Count 299 Mean Platelet Volume 8.1 Neutrophils (%) (Auto) 86.4 Lymphocytes (%) (Auto) 3.7 Monocytes (%) (Auto) 9.6 Eosinophils (%) (Auto) 0.0 Basophils (%) (Auto) 0.3 Neutrophils # (Auto) 20.4 Lymphocytes # (Auto) 0.9 Monocytes # (Auto) 2.3 Eosinophils # (Auto) 0.0 Basophils # (Auto) 0.1 CBC Comment AUTO DIFF Differential Comment AUTO DIFF CONFIRMED Platelet Estimate NORMAL Platelet Morphology Comment NORMAL Red Cell Morphology Comment NORMAL Prothrombin Time 11.8 Prothromb Time International Ratio 1.2 Activated Partial Thromboplast Time 26.8 Blood Urea Nitrogen 9 Creatinine 0.71 Random Glucose 140 Total Protein 9.0 Albumin 2.4 Calcium Level 8.5 Alkaline Phosphatase 107 Aspartate Amino Transf (AST/SGOT) 37 Alanine Aminotransferase (ALT/SGPT) 30 Total Bilirubin 1.2 Sodium Level 131 Potassium Level 3.2 Chloride Level 95 Carbon Dioxide Level 26.9 Anion Gap 9 Estimat Glomerular Filtration Rate 97 Lactic Acid Level 2.1 Troponin I LESS THAN 0.02 Date/Time Source Procedure Growth Status 06/25/17 10:55 Blood Peripheral Aerobic Blood Culture Pending Received 06/25/17 10:55 Blood Peripheral Anaerobic Blood Culture Pending Received 06/25/17 11:30 Nasal Washing Influenza Types A,B Antigen (CHANEL) - Final NEGATIVE FOR FLU A AND B ANTIGEN.... Complete (King Rogel MD, R3) Result Diagram: 06/25/17 1050 06/25/17 1050 Imaging Last Impressions Chest X-Ray 06/25/17 1045 Signed Impressions: Service Date/Time: Sunday, June 25, 2017 10:48 - CONCLUSION: 1. Left lower lobe air space consolidation and likely trace pleural effusion. Findings are concerning for pneumonia in the appropriate clinical setting. Janusz Chris MD (King Rogel MD, R3) Caprini VTE Risk Assessment Caprini VTE Risk Assessment: Mod/High Risk (score >= 2) Caprini Risk Assessment Model Point Value = 1 Point Value = 2 Point Value = 3 Point Value = 5 Age 41-60 Minor surgery BMI > 25 kg/m2 Swollen legs Varicose veins or History of unexplained or recurrent spontaneous Oral contraceptives or hormone replacement Sepsis (< 1 month) Serious lung disease, including pneumonia (< 1 month) Abnormal pulmonary function Acute myocardial infarction Congestive heart failure (< 1 month) History of inflammatory bowel disease Medical patient at bed rest Age 61-74 Arthroscopic surgery Major open surgery (> 45 min) Laparoscopic surgery (> 45 min) Malignancy Confined to bed (> 72 hours) Immobilizing plaster cast Central venous access Age >= 75 History of VTE Family history of VTE Factor V Leiden Prothrombin [id number] Lupus anticoagulant Anticardiolipin antibodies Elevated serum homocysteine Heparin-induced thrombocytopenia Other congenital or acquired thrombophilia Stroke (< 1 month) Elective arthroplasty Hip, pelvis, or leg fracture Acute spinal cord injury (< 1 month) Prophylaxis Regimen Total Risk Factor Score Risk Level Prophylaxis Regimen 0-1 Low Early ambulation 2 Moderate Order ONE of the following: *Sequential Compression Device (SCD) *Heparin 5000 units SQ BID 3-4 Higher Order ONE of the following medications: *Heparin 5000 units SQ TID *Enoxaparin/Lovenox 40 mg SQ daily (WT < 150 kg, CrCl > 30 mL/min) *Enoxaparin/Lovenox 30 mg SQ daily (WT < 150 kg, CrCl > 10-29 mL/min) *Enoxaparin/Lovenox 30 mg SQ BID (WT < 150 kg, CrCl > 30 mL/min) AND/OR *Sequential Compression Device (SCD) 5 or more Highest Order ONE of the following medications: *Heparin 5000 units SQ TID (Preferred with Epidurals) *Enoxaparin/Lovenox 40 mg SQ daily (WT < 150 kg, CrCl > 30 mL/min) *Enoxaparin/Lovenox 30 mg SQ daily (WT < 150 kg, CrCl > 10-29 mL/min) *Enoxaparin/Lovenox 30 mg SQ BID (WT < 150 kg, CrCl > 30 mL/min) AND *Sequential Compression Device (SCD) (King Rogel MD, R3) Assessment and Plan Assessment and Plan This is a 77-year-old -[place] female with a past medical history significant for hyperlipidemia, benign essential tremor, hypertension, and A. fib. Admitted for left lower lobe pneumonia. Code Status Full code Discussed Condition With SDW: Dr. Buck (King Rogel MD, R3) Attending Attestation Case discussed in detail with Dr Rogel of [facility],patient seen, examined and agree with examination,agree with contents of this note see orders (Dre Buck MD) Problem List: (1) CAP (community acquired pneumonia) ICD Codes: J18.9 - Pneumonia, unspecified organism Plan: Patient's physical exam and imaging are suggestive of community-acquired pneumonia. Chest x-ray showing left lower lobe consolidation. * Admitted to inpatient * Continue ceftriaxone 1 g IV every 12 hours * Continue azithromycin 500 mg IV every 24 hours * IV fluids at 100 mls/hr * Duo nebs as needed shortness of breath * Albuterol as needed shortness of breath * Solu-Medrol 40 mg IV every 12 hours * Zofran 4 mg IV every 6 hours when necessary nausea * Blood cultures pending * Sputum culture pending * CBC, BMP ordered for a.m. (2) BENIGN HYPERTENSION Status: Chronic Plan: Patient with history of hypertension. * Continue amlodipine * Continue carvedilol * Continue Lasix (3) Tremor ICD Codes: R25.1 - Tremor Status: Acute Plan: Patient with a history of benign tremors. * Holding propranolol (4) Asthma ICD Codes: J45.909 - Asthma Status: Acute Plan: Patient reports history of asthma. * See breathing treatments above * Continue Pulmicort (5) Alcohol abuse ICD Codes: F10.10 - Alcohol abuse Status: Acute Plan: Patient reports drinking 6 beers every day. * Placed on CIWA protocol (6) Nutrition, metabolism, and development symptoms ICD Codes: R63.8 - Other symptoms and signs concerning food and fluid intake Plan: Diet: Heart healthy diet Monitor electrolytes and replace accordingly Fluids: NS at100 ml/hr Vitals every 4 Out of bed with assistance PT ordered DVT prophylaxis with heparin and SCDs (King Rogel MD, R3) Physician Certification 2 Midnight Certification Type: Admission for Inpatient Services Order for Inpatient Services The services are ordered in accordance with Medicare regulations or non- Medicare payer requirements, as applicable. In the case of services not specified as inpatient-only, they are appropriately provided as inpatient services in accordance with the 2-midnight benchmark. Estimated LOS (days): 3 days is the estimated time the patient will need to remain in the hospital, assuming treatment plan goals are met and no additional complications. Post-Hospital Plan: Home (King Rogel MD, R3) Problem Qualifiers (1) CAP (community acquired pneumonia): Qualified Codes: J18.1 - Lobar pneumonia, unspecified organism King Rogel MD, R3 Jun 25, 2017 13:47 Dre Buck MD Jun 25, 2017 16:13
[2017-06-25 14:01] LABS: BACTERIA, URINE RARE /hpf; BLOOD, URINE NEG (NEG); GLUCOSE,URINE NEG (NEG); KETONE, URINE NEG (NEG); MUCUS URINE FEW /lpf (OCC); NITRITE,URINE NEG (NEG); SQUAMOUS EPITHELIAL CELL URINE 2 /hpf (0-5); URINE COLOR YELLOW (YELLW/STRAW); URINE LEUKOCYTE ESTERASE NEG (NEG)
[2017-06-25 14:04] LABS: BILIRUBIN, URINE NEG (NEG)
[2017-06-25 14:17] VITALS: BP 111/58; PULSE 58; RESP 18; O2SAT 94
[2017-06-25 16:00] VITALS: BP 101/52; PULSE 61; RESP 15; TEMP 97.9; O2SAT 100
[2017-06-25 16:35] VITALS: O2SAT 92
[2017-06-25] MEDS: RESP: ALBUTEROL 2.5 MG/3 ML NEB (SCH) NEB (16:35)
[2017-06-25] MEDS: SODIUM CHLOR 0.9% 1000 ML INJ 1,000 ML IV SCH (17:04)
[2017-06-25] MEDS: HEPARIN SODIUM - SQ 10,000 UNITS/ML VIAL SQ SCH ×2 (17:05→22:30)
[2017-06-25 20:00] VITALS: BP 105/57; PULSE 58; RESP 19; TEMP 97.1; O2SAT 92
[2017-06-25] MEDS: SODIUM CHLORIDE 0.9% FLUSH 10 ML FLUSH IV FLUSH SCH (21:00)
[2017-06-25] MEDS: CARVEDILOL 6.25 MG TAB PO SCH (22:30)
[2017-06-25] MEDS: PRAVASTATIN SOD 80 MG TAB PO SCH (22:30)
[2017-06-25] MEDS: methylPREDNISolone SOD SUCC 40 MG/1 ML VIAL IV PUSH SCH (22:31)
[2017-06-26] VITALS (9 sets, daily range): BP systolic 105–135; BP diastolic 55–69; PULSE 61–72; RESP 16–19; TEMP 96.5–97.5; O2SAT 91–97
[2017-06-26] MEDS: RESP: ALBUTEROL 2.5 MG/3 ML NEB (SCH) NEB ×5 (00:06→20:53)
[2017-06-26] MEDS: SODIUM CHLOR 0.9% 1000 ML INJ 1,000 ML IV SCH ×3 (00:54→22:03)
[2017-06-26] MEDS: HEPARIN SODIUM - SQ 10,000 UNITS/ML VIAL SQ SCH ×3 (07:00→22:02)
[2017-06-26 07:09] LABS: AUTOMATED NEUTROPHIL # 19.4 TH/MM3 (1.8-7.7); BASOPHIL % 0.1 % (0.0-2.0); HEMATOCRIT 37.9 % (35.0-46.0); LYMPH % 4.4 % (9.0-44.0); LYMPHOCYTE # 0.9 TH/MM3 (1.0-4.8); MEAN CORPUSCULAR HEMOGLOBIN 31.2 PG (27.0-34.0); MEAN CORPUSCULAR HGB CONC 34.3 % (32.0-36.0); MONO % 4.9 % (0.0-8.0); MONOCYTE # 1.1 TH/MM3 (0-0.9); NEUT % 90.6 % (16.0-70.0); PLATELET COUNT 291 TH/MM3 (150-450); RED BLOOD COUNT 4.16 MIL/MM3 (4.00-5.30); RED CELL DISTRIBUTION WIDTH 13.8 % (11.6-17.2); WHITE BLOOD COUNT 21.4 TH/MM3 (4.0-11.0)
[2017-06-26 07:27] LABS: BICARBONATE 25.2 MEQ/L (21.0-32.0); CALCIUM 8.3 MG/DL (8.5-10.1); CREATININE 0.59 MG/DL (0.50-1.00)
--- NOTE | 2017-06-26 07:37 | HHI.FPPN ---
Subjective Remarks Patient seen and examined this morning. Temperature 97.5, pulse 72, respiratory rate 19, blood pressure 132/69, pulse ox 95 on 3 L nasal cannula. Patient reports that she is feeling better has been able to get up and go to the bathroom. She is still feeling some weakness. She is still feeling mildly short of breath. No longer complaining of the chest pain. Patient reported at time of admission that she drinks 6 beers a night, at baseline she has essential tremors, she denies any worsening of her tremors at this time. She is on [facility] protocol unfortunately do not see anything documented at this time. Objective Vitals Vital Signs Date Time Temp Pulse Resp B/P (MAP) Pulse Ox O2 Delivery O2 Flow Rate FiO2 06/26/17 04:00 97.5 72 19 132/69 (90) 95 06/26/17 00:06 94 Nasal Cannula 3.00 06/26/17 00:00 97.0 61 19 135/59 (84) 97 06/25/17 20:00 97.1 58 19 105/57 (73) 92 06/25/17 16:35 92 Nasal Cannula 3.00 06/25/17 16:00 97.9 61 15 101/52 (68) 100 06/25/17 14:39 (75) Nasal Cannula 2.00 06/25/17 14:17 58 18 111/58 (75) 94 2.00 06/25/17 10:59 93 Nasal Cannula 2.00 06/25/17 10:57 (90) Nasal Cannula 2.00 06/25/17 10:57 92 Nasal Cannula 2.00 06/25/17 10:41 93 Nasal Cannula 2.00 06/25/17 10:36 70 40 90 Room Air 06/25/17 10:23 101.7 73 18 140/66 (90) 90 I/O 06/25/17 06/25/17 06/25/17 06/26/17 06/26/17 06/26/17 07:00 15:00 23:00 07:00 15:00 23:00 Intake Total 1350 ml 240 ml 240 ml Output Total 200 ml Balance 1150 ml 240 ml 240 ml Intake Oral 240 ml 240 ml IV Total 1350 ml Output Urine Total 200 ml # Voids 1 1 1 Result Diagram: 06/26/17 0533 06/25/17 1050 Imaging Last Impressions Chest X-Ray 06/25/17 1045 Signed Impressions: Service Date/Time: Sunday, June 25, 2017 10:48 - CONCLUSION: 1. Left lower lobe air space consolidation and likely trace pleural effusion. Findings are concerning for pneumonia in the appropriate clinical setting. Janusz Chris MD Objective Remarks GEN: Well-developed, well-nourished patient. No acute distress. CV: Regular rate and rhythm without obvious murmurs LUNGS: Wheezing and crackles heard throughout. Decreased breath sounds in the left lower lobe. Breath sounds are present throughout. GI: Soft, nontender, nondistended. No palpable masses. Bowel sounds WNL. EXT: No edema. NEURO/PSYCH: Afocal. Awake, alert, and oriented x3. Appropriate insight and judgment. Medications and IVs Current Medications Medications (Trade) Dose Ordered Sig/Donaldo Route Start Time Stop Time Status Last Admin Sodium Chloride 1,000 ml @ 100 mls/hr Q10H IV 06/25/17 14:30 06/26/17 00:54 (NS Flush) 2 ml UNSCH PRN IV FLUSH 06/25/17 13:45 (NS Flush) 2 ml BID IV FLUSH 06/25/17 21:00 Ceftriaxone Sodium 1000 mg/ Sodium Chloride 100 ml @ 200 mls/hr Q24H IV 06/26/17 11:00 Azithromycin 500 mg/Sodium Chloride 250 ml @ 250 mls/hr Q24H IV 06/26/17 13:00 (Zofran Inj) 4 mg Q6H PRN IV PUSH 06/25/17 13:45 (Duoneb Neb) 1 ampule Q4HR NEB PRN INH 06/25/17 13:45 (SoluMEDROL INJ) 40 mg Q12H IV PUSH 06/25/17 23:00 06/25/17 22:31 (Heparin Inj) 5,000 units Q8H SQ 06/25/17 15:00 06/25/17 22:30 (Romazicon Inj) 0.2 mg Q1M PRN IV PUSH 06/25/17 13:45 (Ativan) 1 mg Q4H PRN PO 06/25/17 13:45 (Ativan) 2 mg Q2H PRN PO 06/25/17 13:45 (Norvasc) 10 mg DAILY PO 06/26/17 09:00 (Coreg) 6.25 mg BID PO 06/25/17 21:00 06/25/17 22:30 (Lasix) 20 mg DAILY PO 06/26/17 09:00 Patient Own Medication PT OWN MED: PULMICORT FLEXHALER 90M... Q12HR INH 06/25/17 21:00 Future Hold (Pravachol) 80 mg HS PO 06/25/17 21:00 06/25/17 22:30 (Albuterol Neb) 2.5 mg Q6HR NEB NEB 06/25/17 16:00 06/26/17 00:06 A/P Assessment and Plan This is a 77-year-old -[place] female with a past medical history significant for hyperlipidemia, benign essential tremor, hypertension, and A. fib. Admitted for left lower lobe pneumonia. Discharge Planning Anticipate discharge next one to 2 days, currently remaining oxygen she does not need at baseline, awaiting blood culture results, and still requiring IV antibiotics. Problem List: (1) CAP (community acquired pneumonia) ICD Codes: J18.9 - Pneumonia, unspecified organism Plan: Patient's physical exam and imaging are suggestive of community-acquired pneumonia. Chest x-ray showing left lower lobe consolidation. White blood cell count 21.4 * Admitted to inpatient * Continue ceftriaxone 1 g IV every 12 hours * Continue azithromycin 500 mg IV every 24 hours * IV fluids at 100 mls/hr * Duo nebs as needed shortness of breath * Albuterol as needed shortness of breath * Solu-Medrol 40 mg IV every 12 hours * Zofran 4 mg IV every 6 hours when necessary nausea * Blood cultures pending * Sputum culture pending * CBC, BMP ordered for a.m. (2) BENIGN HYPERTENSION Status: Chronic Plan: Patient with history of hypertension. * Continue amlodipine * Continue carvedilol * Continue Lasix (3) Tremor ICD Codes: R25.1 - Tremor Status: Acute Plan: Patient with a history of benign essential tremors. * Continue propranolol (4) Asthma ICD Codes: J45.909 - Asthma Status: Acute Plan: Patient reports history of asthma. * See breathing treatments above * Continue Pulmicort (5) Alcohol abuse ICD Codes: F10.10 - Alcohol abuse Status: Acute Plan: Patient reports drinking 6 beers every day. Currently not been documented, spoke with the nurse this will be assessed. * Placed on CIWA protocol (6) Nutrition, metabolism, and development symptoms ICD Codes: R63.8 - Other symptoms and signs concerning food and fluid intake Plan: Diet: Heart healthy diet Monitor electrolytes and replace accordingly Fluids: NS at 75 ml/hr Vitals every 4 Out of bed with assistance PT ordered DVT prophylaxis with heparin and SCDs Problem Qualifiers (1) CAP (community acquired pneumonia): Qualified Codes: J18.1 - Lobar pneumonia, unspecified organism King Rogel MD, R3 Jun 26, 2017 07:37
[2017-06-26] MEDS: SODIUM CHLORIDE 0.9% FLUSH 10 ML FLUSH IV FLUSH SCH ×2 (08:23→22:02)
[2017-06-26] MEDS: FUROSEMIDE 20 MG TAB PO SCH (08:35)
[2017-06-26] MEDS: PROPRANOLOL HCL 20 MG TAB PO SCH ×3 (08:40→22:02)
--- NOTE | 2017-06-26 09:28 | EKG ---
Date Performed: 06/25/2017 Time Performed: 11:04:03 PTAGE: 77 years EKG: Sinus rhythm BORDERLINE LEFT AXIS DEVIATION MODERATE T-WAVE ABNORMALITY, CONSIDER LATERAL ISCHEMIA ABNORMAL ECG NO PREVIOUS TRACING DOCTOR: Peyman Wahl Interpretating Date/Time 06/26/2017 09:26:54
[2017-06-26] MEDS: cefTRIAXone INJ 1,000 MG in SODIUM CHLORIDE 0.9% INJ 100 ML IV SCH (11:00)
[2017-06-26] MEDS: methylPREDNISolone SOD SUCC 40 MG/1 ML VIAL IV PUSH SCH ×2 (11:00→22:02)
[2017-06-26] MEDS: AZITHROMYCIN INJ 500 MG in SODIUM CHLOR 0.9% 250 ML INJ 250 ML IV SCH (13:00)
[2017-06-26] MEDS ORDERED: WALKER/ADULT/FO1 MIS (16:13)
[2017-06-26] MEDS: LORazepam 1 MG TAB PO PRN (16:25)
[2017-06-26] MEDS: PRAVASTATIN SOD 80 MG TAB PO SCH (22:01)
[2017-06-27] VITALS (15 sets, daily range): BP systolic 85–171; BP diastolic 50–81; PULSE 50–90; RESP 13–18; TEMP 97.5–98.1; O2SAT 92–100
[2017-06-27] MEDS: LORazepam 1 MG TAB PO PRN (00:35)
[2017-06-27] MEDS: RESP: ALBUTEROL 2.5 MG/3 ML NEB (SCH) NEB ×4 (03:36→20:55)
[2017-06-27] MEDS: HEPARIN SODIUM - SQ 10,000 UNITS/ML VIAL SQ SCH ×3 (07:15→22:01)
[2017-06-27 07:47] LABS: HEMATOCRIT 41.8 % (35.0-46.0); HEMOGLOBIN 13.6 GM/DL (11.6-15.3); MEAN CELL VOLUME 92.6 FL (80.0-100.0); MEAN CORPUSCULAR HEMOGLOBIN 30.2 PG (27.0-34.0); MEAN CORPUSCULAR HGB CONC 32.6 % (32.0-36.0); MEAN PLATELET VOLUME 8.8 FL (7.0-11.0); PLATELET COUNT 394 TH/MM3 (150-450); RED BLOOD COUNT 4.51 MIL/MM3 (4.00-5.30); RED CELL DISTRIBUTION WIDTH 14.2 % (11.6-17.2); WHITE BLOOD COUNT 16.3 TH/MM3 (4.0-11.0)
[2017-06-27 08:10] LABS: BICARBONATE 24.6 MEQ/L (21.0-32.0); CALCIUM 8.5 MG/DL (8.5-10.1); CREATININE 0.65 MG/DL (0.50-1.00)
[2017-06-27] MEDS: FUROSEMIDE 20 MG TAB PO SCH (08:21)
[2017-06-27] MEDS: PROPRANOLOL HCL 20 MG TAB PO SCH (08:21)
[2017-06-27] MEDS: SODIUM CHLORIDE 0.9% FLUSH 10 ML FLUSH IV FLUSH SCH ×2 (08:21→20:37)
--- NOTE | 2017-06-27 08:54 | HHI.FPPN ---
Subjective Remarks Patient seen and examined this morning. Deana called at time of exam do to acute respiratory failure. Previously patient only requiring 3 L nasal cannula , however patient's oxygen saturation dropped to the low 80s and she started requiring a mask rebreather at 10 L in order to maintain oxygen saturation at 95 %. She was only able to communicate with shaking her head and one word due to shortness of breath. She denied any chest pain just extreme shortness of breath. She is feeling very fatigued because of this. Denied any calf pain. Chest x-ray, EKG, ABG and labs were ordered. Patient transferred to the ICU for escalation of care with plans for intubation. (King Rogel MD, R3) Objective Vitals Vital Signs Date Time Temp Pulse Resp B/P (MAP) Pulse Ox O2 Delivery O2 Flow Rate FiO2 06/27/17 08:35 95 Partial Rebreather 15.00 06/27/17 08:00 97.5 67 18 171/81 (111) 94 06/27/17 04:00 98.1 62 17 128/66 (86) 94 06/27/17 00:00 97.8 67 17 134/67 (89) 92 06/26/17 20:55 92 Nasal Cannula 3.00 06/26/17 20:00 96.5 62 17 115/55 (75) 91 06/26/17 16:00 96.5 70 16 113/57 (75) 91 06/26/17 12:00 97.4 67 16 113/62 (79) 97 I/O 06/26/17 06/26/17 06/26/17 06/27/17 06/27/17 06/27/17 07:00 15:00 23:00 07:00 15:00 23:00 Intake Total 240 ml 600 ml 240 ml Output Total 2 ml Balance 240 ml 598 ml 240 ml Intake Oral 240 ml 600 ml 240 ml Output Urine Total 2 ml # Voids 1 2 # Bowel Movements 1 (King Rogel MD, R3) Result Diagram: 06/27/17 0620 06/27/17 0620 Imaging Last Impressions Chest X-Ray 06/25/17 1045 Signed Impressions: Service Date/Time: Sunday, June 25, 2017 10:48 - CONCLUSION: 1. Left lower lobe air space consolidation and likely trace pleural effusion. Findings are concerning for pneumonia in the appropriate clinical setting. Janusz Chris MD Pending chest x-ray today. Objective Remarks GENERAL: Lying in bed with rebreather mask on clearly in acute respiratory distress. Communicating with body language and one-word sentences. SKIN: Warm and dry. HEAD: Normocephalic. EYES: No scleral icterus. No injection or drainage. NECK: Supple, trachea midline. No JVD or lymphadenopathy. CARDIOVASCULAR: Regular rate and rhythm without murmurs, gallops, or rubs. RESPIRATORY: Tachypnea with clear breath sounds in all lung aguilar. GASTROINTESTINAL: Abdomen soft, non-tender, nondistended. MUSCULOSKELETAL: No cyanosis, or edema. BACK: Nontender without obvious deformity. No CVA tenderness. Medications and IVs Current Medications Medications (Trade) Dose Ordered Sig/Donaldo Route Start Time Stop Time Status Last Admin Sodium Chloride 1,000 ml @ 75 mls/hr [id number] IV 06/25/17 14:30 06/26/17 22:03 (NS Flush) 2 ml UNSCH PRN IV FLUSH 06/25/17 13:45 (NS Flush) 2 ml BID IV FLUSH 06/25/17 21:00 06/27/17 08:21 Ceftriaxone Sodium 1000 mg/ Sodium Chloride 100 ml @ 200 mls/hr Q24H IV 06/26/17 11:00 06/26/17 11:00 Azithromycin 500 mg/Sodium Chloride 250 ml @ 250 mls/hr Q24H IV 06/26/17 13:00 06/26/17 13:00 (Zofran Inj) 4 mg Q6H PRN IV PUSH 06/25/17 13:45 (Duoneb Neb) 1 ampule Q4HR NEB PRN INH 06/25/17 13:45 (SoluMEDROL INJ) 40 mg Q12H IV PUSH 06/25/17 23:00 06/26/17 22:02 (Heparin Inj) 5,000 units Q8H SQ 06/25/17 15:00 06/27/17 07:15 (Romazicon Inj) 0.2 mg Q1M PRN IV PUSH 06/25/17 13:45 (Ativan) 1 mg Q4H PRN PO 06/25/17 13:45 06/27/17 00:35 (Ativan) 2 mg Q2H PRN PO 06/25/17 13:45 (Norvasc) 10 mg DAILY PO 06/26/17 09:00 06/27/17 08:21 (Coreg) 6.25 mg BID PO 06/25/17 21:00 Future Hold 06/25/17 22:30 (Lasix) 20 mg DAILY PO 06/26/17 09:00 06/27/17 08:21 Patient Own Medication PT OWN MED: PULMICORT FLEXHALER 90M... Q12HR INH 06/25/17 21:00 Future Hold (Pravachol) 80 mg HS PO 06/25/17 21:00 06/26/17 22:01 (Albuterol Neb) 2.5 mg Q6HR NEB NEB 06/25/17 16:00 06/27/17 08:32 (Inderal) 60 mg Q12HR PO 06/26/17 09:00 06/27/17 08:21 (Flu (Quadrivalent) Vaccine Inj) 0.5 ml ONCE ONCE IM 06/27/17 10:00 06/27/17 10:01 (Pneumovax-23 Inj) 25 mcg ONCE ONCE IM 06/27/17 10:00 06/27/17 10:01 (King Rogel MD, R3) A/P Assessment and Plan This is a 77-year-old -[place] female with a past medical history significant for hyperlipidemia, benign essential tremor, hypertension, and A. fib. Admitted for left lower lobe pneumonia. On 06/27/17 patient developed acute respiratory failure and is transferred to the ICU Discharge Planning Transferred to ICU for intubation, discharge pending medical improvement (King Rogel MD, R3) Attending Attestation THIS CASE WAS DISCUSSED WITH THE RESIDENT PHYSICIAN,DR ROGEL. I HAVE REVIEWED THE RECORD,PATIENT SEEN AND EXAMINED AND AGREE WITH THE ABOVE NOTE AND PLAN OF CARE WAS DISCUSSED. I HAVE AUTHORIZED THE ORDERS. (Dre Buck MD) Problem List: (1) Acute respiratory failure ICD Codes: J96.00 - Acute respiratory failure, unspecified whether with hypoxia or hypercapnia Status: Acute Plan: Patient developed acute respiratory failure this morning. Transfer to the ICU. Intubated by the fitness supervisor. Patient is now sedated. * Critical care has been consulted. * Intubated and sedated * Wean FiO2 for goal SPO2 greater than 90%, PEEP at 8 * See antibiotics below * Decadron 4 mg IV every 6 hours for 24 hours * Chest x-ray pending (2) CAP (community acquired pneumonia) ICD Codes: J18.9 - Pneumonia, unspecified organism Status: Acute Plan: Patient's physical exam and imaging are suggestive of community-acquired pneumonia. White blood cell count 16 * Continue ceftriaxone 1 g IV every 12 hours * Continue azithromycin 500 mg IV every 24 hours * IV fluids at 100 mls/hr * Duo nebs as needed shortness of breath * Albuterol as needed shortness of breath * Zofran 4 mg IV every 6 hours when necessary nausea * Blood cultures pending * Sputum culture pending * CBC, BMP ordered for a.m. * See acute respiratory failure plan above (3) BENIGN HYPERTENSION Status: Chronic Plan: Patient with history of hypertension. * Continue amlodipine * Continue carvedilol * Continue Lasix (4) Tremor ICD Codes: R25.1 - Tremor Status: Chronic Plan: Patient with a history of benign essential tremors. * Continue propranolol (5) Asthma ICD Codes: J45.909 - Asthma Status: Chronic Plan: Patient reports history of asthma. * See breathing treatments above * Continue Pulmicort (6) Alcohol abuse ICD Codes: F10.10 - Alcohol abuse Status: Chronic Plan: Patient reports drinking 6 beers every day. * Patient is intubated and sedated this time. * Sedation with propofol and fentanyl * Avoiding long-acting sedating medications otherwise at this time. (7) Nutrition, metabolism, and development symptoms ICD Codes: R63.8 - Other symptoms and signs concerning food and fluid intake Plan: Diet: Orogastric tube has been placed and starting tube feeds Monitor electrolytes and replace accordingly, placed on ICU electrolyte protocol Fluids: NS at 75 ml/hr Vitals every 4 Out of bed with assistance PT ordered DVT prophylaxis with heparin and SCDs (King Rogel MD, R3) Problem Qualifiers (1) CAP (community acquired pneumonia): Qualified Codes: J18.1 - Lobar pneumonia, unspecified organism King Rogel MD, R3 Jun 27, 2017 08:54 Dre Buck MD Jun 29, 2017 21:12
[2017-06-27] MEDS ORDERED: POTASSIUM PHOSPHATE INJ 30 MMOL in SODIUM CHLOR 0.9% 250 ML INJ 250 ML IV PRN (09:15)
[2017-06-27] MEDS ORDERED: POTASSIUM CHLOR 20 MEQ PREMIX 100 ML IV PRN (09:15)
[2017-06-27] MEDS ORDERED: POTASSIUM PHOSPHATE MONOBASIC 500 MG TAB PO PRN (09:15)
[2017-06-27] MEDS ORDERED: MAGNESIUM SULFATE INJ 2 GM in SODIUM CHLORIDE 0.9% INJ 96 ML IV PRN (09:15)
[2017-06-27] MEDS ORDERED: POTASSIUM PHOSPHATE MONOBASIC 500 MG TAB PO/TUBE PRN (09:15)
[2017-06-27] MEDS ORDERED: PROPOFOL 1000 MG/100 ML INJ 100 ML IV PRN (09:15)
[2017-06-27] MEDS ORDERED: RESP: ALBUTEROL 2.5 MG/IPRATROPIUM 0.5 MG NEB (PRN) INH (09:15)
[2017-06-27] MEDS ORDERED: MAGNESIUM OXIDE 400 MG TAB PO PRN (09:15)
[2017-06-27] MEDS ORDERED: SODIUM PHOSPHATE INJ 30 MMOL in SODIUM CHLOR 0.9% 250 ML INJ 240 ML IV PRN (09:15)
[2017-06-27] MEDS ORDERED: MAGNESIUM SULFATE INJ 4 GM in SODIUM CHLORIDE 0.9% INJ 92 ML IV PRN (09:15)
[2017-06-27] MEDS ORDERED: fentaNYL DRIP 250 ML IV PRN (09:15)
[2017-06-27] MEDS ORDERED: POTASSIUM CHLOR 40 MEQ PREMIX 100 ML IV PRN ×2 (09:15)
[2017-06-27] MEDS ORDERED: DEXTROSE 50% IN WATER 50 ML VIAL(D50) IV PUSH PRN (09:15)
--- NOTE | 2017-06-27 09:39 | PD.CONS ---
HPI Service Critical Care Medicine Consult Requested By Family medicine service Reason for Consult acute hypoxia Primary Care Physician Emre Mcclain MD History of Present Illness This is a 77-year-old female who presented on 06/25 with shortness of breath, cough, fever and was found to have community-acquired pneumonia. She was started on IV antibiotics. She was doing well on nasal cannula when she had an acute decompensation this morning. Rapid response was called. She was noted to have an SPO2 of 70% on a nonrebreather. She was emergently transferred to the ICU. I evaluated her on immediate arrival to the ICU. I emergently intubated the patient, please see separate procedure for details. Of note, the patient did not have any IV access when she arrived to the ICU. I emergently placed right-sided EJ 18-gauge peripheral IV through which we induced anesthesia for intubation. Also of note, the patient wasn't unanticipated difficult airway with significant decreases in neck flexion and extension which was not noted due to the emergent nature of her intubation. This required mask ventilation GlideScope intubation. It was noted on the GlideScope that she had significant bloody secretions in the hypopharynx, less likely due to first laryngoscopy, but unclear what this is related to. She also had very edematous appearing cords. No additional information is available from the patient. The remainder of the history is obtained from medical record. Review of Systems ROS Limitations: Clinical Condition, Altered Mental Status Past Family Social History Allergies: Coded Allergies: propranolol (Unverified Allergy, Severe, Dizziness, 06/25/17) lisinopril (Unverified Allergy, Unknown, 06/25/17) Past Medical History dyslipidemia asthma benign essential tremor HTN vag deliveries A. fib with ablation Past Surgical History atrial ablation for afib/flutter 08/2009 hernia repairs x3 Cataract surgery: 2009 Reported Medications Ventolin Hfa 18 GM Inh (Albuterol Sulfate) 90 Mcg/Act Aer 1 Puff INH Q4H PRN Isosorbide Mononitrate ER (Isosorbide Mononitrate) 30 Mg Slava 30 Mg PO DAILY Carvedilol 6.25 Mg Tab 6.25 Mg PO BID Amlodipine (Amlodipine Besylate) 10 Mg Tab 10 Mg PO DAILY Naproxen 250 Mg Tab 250 Mg PO BID Furosemide 20 Mg Tab 20 Mg PO DAILY Simvastatin 40 Mg Tab 40 Mg PO HS Propranolol (Propranolol HCl) 60 Mg Tab 60 Mg PO Q12HR Fioricet (Dfoqiyqlkh-Izpftuyrqggfq-Xhvanbpy) 50-300-40 Mg Cap 1 Cap PO Q4H PRN Pulmicort Flexhaler (Budesonide Powder Inh) 90 Mcg/Act Inhp 90 Mcg INH Q12HR Active Ordered Medications See MAR Family History M breast cancer in late 50s F unknown sister & aunt with DM2 brother unk Social History no tobacco 6 Beers a day lives with 1 grand daughter 17 years old Physical Exam Vital Signs Vital Signs Date Time Temp Pulse Resp B/P (MAP) Pulse Ox O2 Delivery O2 Flow Rate FiO2 06/27/17 08:35 95 Partial Rebreather 15.00 06/27/17 08:00 97.5 67 18 171/81 (111) 94 06/27/17 04:00 98.1 62 17 128/66 (86) 94 06/27/17 00:00 97.8 67 17 134/67 (89) 92 06/26/17 20:55 92 Nasal Cannula 3.00 06/26/17 20:00 96.5 62 17 115/55 (75) 91 06/26/17 16:00 96.5 70 16 113/57 (75) 91 06/26/17 12:00 97.4 67 16 113/62 (79) 97 Physical Exam GENERAL: Elderly female, in acute distress, nonrebreather, obtunded HEENT: Normocephalic. Atraumatic. Pupils equal, round, reactive, conjugate. Mucous membranes are dry NECK: Trachea is midline. There is no JVD. CHEST: Labored. Nonrebreather. Tachypneic. SPO2 79% on nonrebreather. CARDIOVASCULAR: Normal rate, regular rhythm. Heart rate in the 60s. Sinus by telemetry ABDOMEN: Soft, nontender, nondistended. No guarding. MUSCULOSKELETAL: Pulses 2+. No peripheral edema. Lower extremity venous stasis changes noted NEUROLOGICAL: RASS -4. Obtunded. Does not follow commands. Laboratory Laboratory Tests Test 06/27/17 06:20 06/27/17 08:45 White Blood Count 16.3 Red Blood Count 4.51 Hemoglobin 13.6 Hematocrit 41.8 Mean Corpuscular Volume 92.6 Mean Corpuscular Hemoglobin 30.2 Mean Corpuscular Hemoglobin Concent 32.6 Red Cell Distribution Width 14.2 Platelet Count 394 Mean Platelet Volume 8.8 Blood Urea Nitrogen 14 Creatinine 0.65 Random Glucose 172 Calcium Level 8.5 Sodium Level 142 Potassium Level 3.5 Chloride Level 108 Carbon Dioxide Level 24.6 Anion Gap 9 Estimat Glomerular Filtration Rate 107 Blood Gas Puncture Site LT RADIAL Blood Gas Patient Temperature 98.6 Blood Gas HCO3 29 Blood Gas Base Excess 1.8 Blood Gas Oxygen Saturation 87 Arterial Blood pH 7.23 Arterial Blood Partial Pressure CO2 72 Arterial Blood Partial Pressure O2 67 Arterial Blood Oxygen Content 17.3 Arterial Blood Carboxyhemoglobin 0.4 Arterial Blood Methemoglobin 0.5 Blood Gas Hemoglobin 14.2 Oxygen Delivery Device Non-Rebreathing Mask Blood Gas Liter Flow 15 Date/Time Source Procedure Growth Status 06/25/17 10:55 Blood Peripheral Aerobic Blood Culture - Preliminary NO GROWTH IN 1 DAY Resulted 06/25/17 10:55 Blood Peripheral Anaerobic Blood Culture - Preliminary NO GROWTH IN 1 DAY Resulted 06/25/17 11:30 Nasal Washing Influenza Types A,B Antigen (CHANEL) - Final NEGATIVE FOR FLU A AND B ANTIGEN.... Complete 06/25/17 13:30 Urine Catheterized Urine Urine Culture - Preliminary IMMATURE GROWTH - REINCUBATE Resulted Result Diagram: 06/27/17 0620 06/27/17 0620 Imaging Last Impressions Chest X-Ray 06/25/17 1045 Signed Impressions: Service Date/Time: Sunday, June 25, 2017 10:48 - CONCLUSION: 1. Left lower lobe air space consolidation and likely trace pleural effusion. Findings are concerning for pneumonia in the appropriate clinical setting. Janusz Chris MD Septic Shock Reassessment Septic shock perfusion: reassessment completed Assessment and Plan Assessment and Plan Assessment: 77-year-old female with community-acquired pneumonia and associated decompensated acute hypoxic respiratory failure. Clearly clinically worsening today. Remain extubated. Given evidence of trauma in the hypopharynx and airway, will give 24 hours of Decadron. Given that her white count is starting to come down, we will continue with this current course metabolic regimen and not broaden her coverage currently. Follow-up cultures. Send repeat sputum culture now that we have endotracheal access. Remains very critically ill. Plan by systems: Neurologic: Acute Metabolic encephalopathy Alcohol dependence Propofol and fentanyl for goal RASS -2 Avoid long-acting sedating meds Discontinue CIWA protocol Frequent neurochecks Respiratory: Acute hypoxic and hypercarbic respiratory failure Community-acquired pneumonia Vent bundle Head of bed at 30 Nebs Decadron 4 mg IV every 6 hours 24 hours No weaning of mechanical ventilation today Wean FiO2 for goal SPO2 greater than 90% Keep PEEP of 8 Cardiovascular: Severe Sepsis Continuing maintenance IV fluids Patient has not had echocardiogram since 2011, which at that time showed stage I diastolic dysfunction. We'll attempt to perform bedside critical care ultrasound. If this is inadequate to make management decisions on volumes status, we'll order formal echo. Renal: Place Porter for accurate I's and O's -- Strict I/Os FEN/GI: Acute protein calorie malnutrition-moderate Hypokalemia Intravascular hypovolemia Place orogastric tube and start tube feeds Consult nutrition for goal recommendations ICU electrolyte protocol Daily BMP Heme/ID: Community acquired pneumonia Severe sepsis Continue Rocephin and azithromycin. Follow-up cultures If she continues to worsen will broaden Repeat sputum culture now that we have secure endotracheal access Endocrine: Hyperglycemia of critical illness -- SSI, medium scale, every 6 Prophylaxis: GI Prophylaxis Pepcid IV DVT Prophylaxis -- SCDs Subcutaneous heparin Lines: Peripheral IVs Porter Dispo: Admit to ICU. Critically ill. This patient remains critically ill with one or more organ systems which are or may become a threat to life. I have spent in excess of 69 minutes discontinuously in the care and management of this patient. This time is exclusive of procedures, and includes, but is not limited to, evaluation of the patient, review of the medical record, discussions with family, consultants, nursing staff, or respiratory therapy, and documentation in the medical record. Code Status Full code Venkatesh Hylton MD Jun 27, 2017 09:39
--- NOTE | 2017-06-27 09:43 | PD.PROCEDR ---
Procedure Note Procedure Endotracheal Intubation Diagnosis: Acute hypoxic respiratory failure, community acquired pneumonia Indications: Acute hypoxic and hypercarbic respiratory failure Consent: Emergent Anesthesia: Versed 10 mg IV, Rocuronium 100 mg IV Description of the Procedure: Patient arrived emergently from the floor as a rapid response. The patient was without IV access. I first emergently placed 18-gauge right EJ IV for induction agents in emergency drugs. At this point I administered Versed and Rocuronium. The patient was positioned in the sniffing position. Pre- oxygenation was performed using a [id number]. Anesthesia was induced via rapid sequence. Initially, A Helms #2 was used for laryngoscopy, however, we did not anticipate that she had significant difficulties with neck extension and a grade 3 view was the best be obtainable. Given her significant hypoxia, the initial laryngoscopy was immediately aborted, and oral airway was placed, and that patient was maintained on [id number] ventilation while a glide scope was obtained. On second laryngoscopy, a #3 glide scope was used and a grade 1 view was obtained. At this point it was noted there was a moderate amount of bloody secretions in the hypopharynx and the cords were very edematous. A 8.0 cuffed endotracheal tube was inserted atraumatically through the vocal cords. Confirmation of correct endotracheal tube placement was made by equal and bilateral breath sounds and colorimetric CO2 detection. The endotracheal tube was secured at 23 cm at the teeth. Patient's hypoxia improved post intubation. Starting SPO2 was 75% on a nonrebreather, ending SPO2 was 96% on [id number]. There were no immediate complications noted. The patient remained hemodynamically stable throughout the procedure. A chest x-ray has been ordered. I personally performed the procedure. Venkatesh Hylton MD Jun 27, 2017 09:43
[2017-06-27] MEDS ORDERED: PROPOFOL 1000 MG/100 ML IV PRN (09:45)
[2017-06-27] MEDS ORDERED: PNEUMOCOCCAL POLYVALENT INJ 25 MCG/0.5 ML SYR IM ONE (10:00)
[2017-06-27] MEDS: RESP: ALBUTEROL 2.5 MG/IPRATROPIUM 0.5 MG NEB (SCH) INH ×3 (10:00→20:55)
[2017-06-27] MEDS: fentaNYL 2,500 MCG/NS 250 ML IV PRN (10:00)
[2017-06-27] MEDS ORDERED: INFLUENZA VIRUS VACCINE (QUADRIVALENT) 0.5 ML SYR IM ONE (10:00)
--- NOTE | 2017-06-27 10:28 | RADRPT ---
EXAM DATE/TIME: 06/27/2017 09:31 [facility] COMPARISON: CHEST SINGLE AP, June 25, 2017, 10:48. INDICATIONS : Atelectasis MEDICAL HISTORY : None. SURGICAL HISTORY : None. ENCOUNTER: Subsequent ACUITY: 3 days PAIN SCORE: Non-responsive. LOCATION: chest FINDINGS: There is almost complete opacification of the left hemithorax consistent with probable large left ple ural effusion and possible underlying consolidation/atelectasis. An endotracheal tube has its tip 3 c m above the april in good position. The right lung is clear. The heart is enlarged. CONCLUSION: 1. Almost complete opacification of the left hemithorax consistent with probable large left pleural e ffusion and possible underlying consolidation/atelectasis. 2. Cardiomegaly Vinayak Key MD on June 27, 2017 at 10:24 Board Certified Radiologist. This report was verified electronically.
--- NOTE | 2017-06-27 10:29 | EKG ---
Date Performed: 06/27/2017 Time Performed: 09:11:52 PTAGE: 77 years EKG: Sinus rhythm WITH OCCASIONAL PAC LOW QRS VOLTAGE IN PRECORDIAL LEADS NONSPECIFIC ST & T-WAVE ABNORMALITY BORDERLI NE ECG PREVIOUS TRACING : 06/25/2017 11.04 Compared to previous tracing, lateral T wave inversion is n o longer evident. DOCTOR: Jamal Shelby Interpretating Date/Time 06/27/2017 10:28:00
[2017-06-27] MEDS: INSULIN NovoLIN REGULAR SUPPLEMENTAL SCALE SQ SCH ×2 (11:26→18:11)
[2017-06-27] MEDS: methylPREDNISolone SOD SUCC 40 MG/1 ML VIAL IV PUSH SCH ×2 (11:27→22:00)
[2017-06-27] MEDS: FAMOTIDINE 20 MG/2 ML VIAL IV PUSH SCH ×2 (11:27→22:01)
[2017-06-27] MEDS: cefTRIAXone INJ 1,000 MG in SODIUM CHLORIDE 0.9% INJ 100 ML IV SCH (11:28)
[2017-06-27] MEDS: DEXAMETHASONE SOD PHOS 4 MG/ML VIAL IV PUSH SCH ×2 (12:24→18:06)
[2017-06-27] MEDS: AZITHROMYCIN INJ 500 MG in SODIUM CHLOR 0.9% 250 ML INJ 250 ML IV SCH (12:24)
[2017-06-27] MEDS ORDERED: ROCURONIUM INJ 50 MG/5 ML VIAL ONE (12:53)
[2017-06-27] MEDS: SODIUM CHLOR 0.9% 1000 ML INJ 1,000 ML IV SCH (14:07)
--- NOTE | 2017-06-27 15:51 | RADRPT ---
EXAM DATE/TIME: 06/27/2017 15:21 [facility] COMPARISON: CHEST SINGLE AP, June 27, 2017, 9:31. INDICATIONS : Post Bronchoscopy MEDICAL HISTORY : Chronic obstructive pulmonary disease. Hypertension SURGICAL HISTORY : None. ENCOUNTER: Subsequent ACUITY: 2 days PAIN SCORE: Non-responsive. LOCATION: Bilateral chest FINDINGS: A single view of the chest demonstrates a moderate-sized left pleural effusion, much smaller than ear lier this morning. I do not seen evidence of a pneumothorax. Right lung is relatively clear. ET tube and NG tube are in good position.. The cardiomediastinal contours are unremarkable. Osseous structu res are intact. CONCLUSION: Markedly decreasing size of left pleural effusion. No pneumothorax.. Tao Mcconnell MD on June 27, 2017 at 15:49 Board Certified Radiologist. This report was verified electronically.
--- NOTE | 2017-06-27 16:32 | PD.PROCEDR ---
Procedure Note Procedure Procedure: Diagnostic and therapeutic Fiberoptic Bronchoscopy Diagnosis: Acute respiratory failure Indications: Complete atelectatic collapse and white out of the left lung field Consent: Obtained Anesthesia: Fentanyl IV Description of the Procedure: The patient was sedated and mechanically ventilated. The patient was placed on 100% FIO2 and a volume control mode of ventilation. The fiberoptic bronchoscopy was inserted via 8.0 oral endotracheal tube. The trachea, right and left mainstem bronchi, and sub- segmental bronchi were evaluated. The endobronchial anatomy was normal. Findings: Complete obstruction of the left mainstem bronchus with thin white mucus. This was aggressively suctioned until clear. BAL samples: Left lower lobe, right lower lobe The patient tolerated the procedure well with no hemodynamic instability or hypoxia. There were no immediate complications noted. At the conclusion of the procedure, the patient was placed back on their pre-procedure ventilatory settings. There was minimal EBL. A chest x-ray has been ordered. I personally performed the procedure. Venkatesh Hylton MD Jun 27, 2017 16:32
[2017-06-27] MEDS ORDERED: CHLORHEXIDINE GLUCONATE 2 % 1 PACK (2 CLOTHS)(extra cloths) TOPICAL PRN (16:45)
[2017-06-27] MEDS: PRAVASTATIN SOD 80 MG TAB PO SCH (20:36)
[2017-06-27] MEDS: CHLORHEXIDINE 0.12% (ORAL KIT) 15 ML CUP MT SCH (20:37)
[2017-06-28] VITALS (17 sets, daily range): BP systolic 126–166; BP diastolic 67–77; PULSE 45–61; RESP 13–40; TEMP 97.1–98.3; O2SAT 100
[2017-06-28] MEDS: DEXAMETHASONE SOD PHOS 4 MG/ML VIAL IV PUSH SCH ×2 (00:17→06:06)
[2017-06-28] MEDS: INSULIN NovoLIN REGULAR SUPPLEMENTAL SCALE SQ SCH ×5 (00:18→23:07)
[2017-06-28] MEDS: SODIUM CHLOR 0.9% 1000 ML INJ 1,000 ML IV SCH (02:22)
[2017-06-28] MEDS: CHLORHEXIDINE GLUCONATE 2 % 1 PACK (2 CLOTHS)(taper/protocol) TOPICAL SCH (04:00)
--- NOTE | 2017-06-28 04:03 | RADRPT ---
EXAM DATE/TIME: 06/28/2017 03:11 [facility] COMPARISON: CHEST SINGLE AP, June 27, 2017, 15:21. INDICATIONS : Shortness of breath, possible pulmonary disease. MEDICAL HISTORY : Chronic obstructive pulmonary disease. Hypertension SURGICAL HISTORY : None. ENCOUNTER: Subsequent ACUITY: 3 days PAIN SCORE: Non-responsive. LOCATION: Bilateral chest FINDINGS: ET tube and NG tube are well placed. The heart size is normal. There is increased density at the left base. The right lung is clear. CONCLUSION: Left lower lobe consolidation or atelectasis. Severo Harrell MD on June 28, 2017 at 4:00 Board Certified Radiologist. This report was verified electronically.
[2017-06-28] MEDS: RESP: ALBUTEROL 2.5 MG/IPRATROPIUM 0.5 MG NEB (SCH) INH ×4 (04:31→20:22)
[2017-06-28] MEDS: RESP: ALBUTEROL 2.5 MG/3 ML NEB (SCH) NEB ×4 (04:31→21:24)
[2017-06-28 05:14] LABS: MEAN CELL VOLUME 91.1 FL (80.0-100.0); MEAN CORPUSCULAR HEMOGLOBIN 30.3 PG (27.0-34.0); MEAN CORPUSCULAR HGB CONC 33.3 % (32.0-36.0); MEAN PLATELET VOLUME 8.7 FL (7.0-11.0); PLATELET COUNT 367 TH/MM3 (150-450); RED BLOOD COUNT 4.28 MIL/MM3 (4.00-5.30); RED CELL DISTRIBUTION WIDTH 14.4 % (11.6-17.2)
[2017-06-28 05:43] LABS: BICARBONATE 22.2 MEQ/L (21.0-32.0); CALCIUM 8.2 MG/DL (8.5-10.1); CREATININE 0.72 MG/DL (0.50-1.00)
[2017-06-28] MEDS: HEPARIN SODIUM - SQ 10,000 UNITS/ML VIAL SQ SCH ×3 (06:06→23:00)
[2017-06-28] MEDS: POTASSIUM CHLOR 20 MEQ PREMIX 100 ML IV PRN ×2 (06:14→09:51)
[2017-06-28] MEDS: SODIUM CHLORIDE 0.9% FLUSH 10 ML FLUSH IV FLUSH SCH ×2 (08:50→20:45)
[2017-06-28] MEDS: CHLORHEXIDINE 0.12% (ORAL KIT) 15 ML CUP MT SCH ×2 (08:50→20:45)
[2017-06-28] MEDS: FAMOTIDINE 20 MG/2 ML VIAL IV PUSH SCH ×2 (08:50→20:44)
[2017-06-28] MEDS: cefTRIAXone INJ 1,000 MG in SODIUM CHLORIDE 0.9% INJ 100 ML IV SCH (11:21)
[2017-06-28] MEDS: methylPREDNISolone SOD SUCC 40 MG/1 ML VIAL IV PUSH SCH ×2 (11:21→23:06)
[2017-06-28] MEDS: fentaNYL 2,500 MCG/NS 250 ML IV PRN (12:55)
[2017-06-28] MEDS: LACTATED RINGER'S 1000 ML INJ 1,000 ML IV SCH (13:48)
--- NOTE | 2017-06-28 13:53 | HHI.CCPN ---
Subjective Remarks/Hospital Course Hospital Course: This is a 77-year-old female who presented on 06/25 with shortness of breath, cough, fever and was found to have community-acquired pneumonia. She was started on IV antibiotics. She was doing well on nasal cannula when she had an acute decompensation this morning. Rapid response was called. She was noted to have an SPO2 of 70% on a nonrebreather. She was emergently transferred to the ICU. I evaluated her on immediate arrival to the ICU. I emergently intubated the patient, please see separate procedure for details. Of note, the patient did not have any IV access when she arrived to the ICU. I emergently placed right-sided EJ 18-gauge peripheral IV through which we induced anesthesia for intubation. Also of note, the patient wasn't unanticipated difficult airway with significant decreases in neck flexion and extension which was not noted due to the emergent nature of her intubation. This required mask ventilation GlideScope intubation. It was noted on the GlideScope that she had significant bloody secretions in the hypopharynx, less likely due to first laryngoscopy, but unclear what this is related to. She also had very edematous appearing cords. No additional information is available from the patient. The remainder of the history is obtained from medical record. subjective: 06/28: aeration improved on APRV mode of ventilation. wbc continues to downtrend. adequately sedated on fentanyl infusion. Objective Vital Signs Date Time Temp Pulse Resp B/P (MAP) Pulse Ox O2 Delivery O2 Flow Rate FiO2 06/28/17 12:00 48 06/28/17 12:00 98.3 13 140/67 (91) 100 06/28/17 11:07 40 06/27/17 08:35 Partial Rebreather 15.00 Intake and Output 06/28/17 06/28/17 06/29/17 08:00 16:00 00:00 Intake Total 263 ml 1045 ml Output Total 218 ml 40 ml Balance 45 ml 1005 ml Result Diagram: 06/28/17 0332 06/28/17 0332 Imaging Last Impressions Chest X-Ray 06/25/17 1045 Signed Impressions: Service Date/Time: Sunday, June 25, 2017 10:48 - CONCLUSION: 1. Left lower lobe air space consolidation and likely trace pleural effusion. Findings are concerning for pneumonia in the appropriate clinical setting. Janusz Chris MD Objective Remarks GENERAL: Elderly female, intubated, sedated, critically ill. HEENT: Normocephalic. Atraumatic. Pupils equal, round, reactive, conjugate. Mucous membranes are moist NECK: Trachea is midline. There is no JVD. CHEST: APRV 34/0, 5:1, 40% fio2. decreased BS on left. CARDIOVASCULAR: bradycardic rate, regular rhythm. Heart rate in the 40s. Sinus by telemetry. ABDOMEN: Soft, nontender, nondistended. No guarding. MUSCULOSKELETAL: Pulses 2+. No peripheral edema. Lower extremity venous stasis changes noted NEUROLOGICAL: RASS -2. intermittently follows commands. A/P Assessment and Plan Assessment: 77-year-old female with community-acquired pneumonia and associated decompensated acute hypoxic respiratory failure. clinically improving. remains on high vent settings and mechanical support. will give another day for lungs to improve. will attempt directional suctioning to the left lower lobe to improve aeration. continue abx. follow up cultures. Remains critically ill. Plan by systems: Neurologic: Acute Metabolic encephalopathy Alcohol dependence Propofol and fentanyl for goal RASS -2 Avoid long-acting sedating meds Frequent neurochecks Respiratory: Acute hypoxic and hypercarbic respiratory failure Community-acquired pneumonia Vent bundle Head of bed at 30 Nebs Decadron 4 mg IV every 6 hours 24 hours to complete today for airway edema visible on intubation. continue APRV 34/0, 5:1, 40% fio2. repeat CXR in AM. Wean FiO2 for goal SPO2 greater than 90% Cardiovascular: Severe Sepsis Sinus bradycardia Continuing maintenance IV fluids bradycardia likely secondary to sedation. remains hemodynamically stable. Renal: d/c davon. -- Strict I/Os FEN/GI: Acute protein calorie malnutrition-moderate Hypokalemia Intravascular hypovolemia Hypernatremia OGT. continue start tube feeds Consult nutrition for goal recommendations ICU electrolyte protocol Daily BMP switch mivf to LR from NS start free water 200mL po q6h Heme/ID: Community acquired pneumonia Severe sepsis Continue Rocephin and azithromycin. Follow-up cultures If she continues to worsen will broaden, leukocytosis improving. afebrile. blood cultures 06/26 NGTD sputum culture and BALs from 06/28 pending. Endocrine: Hyperglycemia of critical illness -- SSI, medium scale, every 6 Prophylaxis: GI Prophylaxis Pepcid IV DVT Prophylaxis -- SCDs Subcutaneous heparin Lines: Peripheral IVs Dispo: remain in ICU. Critically ill. Venkatesh Hylton MD Jun 28, 2017 13:53
[2017-06-28] MEDS: AZITHROMYCIN INJ 500 MG in SODIUM CHLOR 0.9% 250 ML INJ 250 ML IV SCH (13:54)
--- NOTE | 2017-06-28 14:58 | HHI.FPPN ---
Subjective Remarks Patient seen in ICU this morning. She is currently on APRV with 40% FiO2. Per nurse, she has been improving. She is currently sedated with fentanyl for synchronization with ventilator. She is currently non-verbal due to sedation. Vital signs are stable, has bradycardia since admission. She continues with azithromycin and ceftriaxone for pneumonia. Added legionella and pneumococcal antigens to workup. She continues with G tube feedings. Afebrile overnight and white count back to normal. (Dayton Belle MD R3) Objective Vitals Vital Signs Date Time Temp Pulse Resp B/P (MAP) Pulse Ox O2 Delivery O2 Flow Rate FiO2 06/28/17 12:00 48 06/28/17 12:00 98.3 48 13 140/67 (91) 100 06/28/17 11:07 100 40 06/28/17 10:00 47 06/28/17 08:00 97.1 45 40 152/74 (100) 100 06/28/17 08:00 45 06/28/17 06:00 45 06/28/17 04:31 100 40 06/28/17 04:00 98.1 46 13 143/70 (94) 100 06/28/17 04:00 46 06/28/17 02:00 47 06/28/17 00:54 100 40 06/28/17 00:00 97.6 49 13 126/68 (87) 100 06/28/17 00:00 49 06/27/17 22:00 50 06/27/17 20:55 100 40 06/27/17 20:00 97.5 51 13 120/67 (84) 100 06/27/17 18:00 58 06/27/17 16:00 52 06/27/17 16:00 97.8 51 13 136/67 (90) 97 I/O 06/27/17 06/27/17 06/27/17 06/28/17 06/28/17 06/28/17 07:00 15:00 23:00 07:00 15:00 23:00 Intake Total 240 ml 100 ml 1029.1 ml 263 ml 1045 ml Output Total 1020 ml 205 ml 68 ml Balance 240 ml 100 ml 9.1 ml 58 ml 977 ml Intake Oral 240 ml IV Total 100 ml 1029.1 ml 263 ml 1045 ml Output Urine Total 1020 ml 205 ml 68 ml # Voids 2 (Dayton Belle MD R3) Result Diagram: 06/28/17 0332 06/28/17 0332 Imaging Last 72 hours Impressions Chest X-Ray 06/28/17 0500 Signed Impressions: Service Date/Time: Wednesday, June 28, 2017 03:11 - CONCLUSION: Left lower lobe consolidation or atelectasis. Severo Harrell MD Chest X-Ray 06/27/17 0000 Signed Impressions: Service Date/Time: Tuesday, June 27, 2017 15:21 - CONCLUSION: Markedly decreasing size of left pleural effusion. No pneumothorax.. Tao Mcconnell MD Chest X-Ray 06/27/17 0000 Signed Impressions: Service Date/Time: Tuesday, June 27, 2017 09:31 - CONCLUSION: 1. Almost complete opacification of the left hemithorax consistent with probable large left pleural effusion and possible underlying consolidation/atelectasis. 2. Cardiomegaly Vinayak Key MD Objective Remarks General: Lying in bed, mechanically ventilated, NG-tube in place, sedated Skin: No rashes or lesions HEENT: Normocephalic, no conjunctivitis, no nasal discharge, normal pharynx Neck: No JVD or lymphadenopathy CV: RRR, no murmurs, rubs, or gallops Lungs: Transmitted sounds from ventilator, clear to auscultation, no respiratory distress, APRV at 40% FiO2 GI: NG tube in place, 50 ml/hr feeds with Jevity 1.5 victor manuel formula, soft, nontender abdomen, normal bowel sounds Ext: No swelling or tenderness of the calves (Dayton Belle MD R3) A/P Assessment and Plan 77-year-old -[place] female with a past medical history significant for hyperlipidemia, benign essential tremor, hypertension, and A. fib. Admitted for left lower lobe pneumonia. On 06/27/17 patient developed acute respiratory failure and is transferred to the ICU, currently mechanically ventilated. Discharge Planning Transferred to ICU for intubation, discharge pending medical improvement (Dayton Belle MD R3) Attending Attestation Medical rounds performed with Dr Belle,Case reviewed in detail, patient seen and examined, Agree with above documentation, See Orders (Dre Buck MD) Problem List: (1) Acute respiratory failure ICD Codes: J96.00 - Acute respiratory failure, unspecified whether with hypoxia or hypercapnia Status: Acute Plan: Patient developed acute respiratory failure on 06/27. Transferred to the ICU. Intubated by the construction equipment mechanic helper. Patient is sedated. * Critical care has been consulted. * Wean FiO2 for goal SPO2 greater than 90% * See antibiotics below * Decadron 4 mg IV every 6 hours for 24 hours, now discontinued (2) CAP (community acquired pneumonia) ICD Codes: J18.9 - Pneumonia, unspecified organism Status: Acute Plan: Patient's physical exam and imaging are suggestive of community-acquired pneumonia. Initially with fever and leukocytosis, and with acute respiratory failure. Now with leukocytosis resolved and afebrile. Breathing status starting to improve, weaning off ventilator as tolerated. Hopefully she is turning a corner and will continue to improve. Blood cultures negative to date. Flu A and B negative. * Continue ceftriaxone 1 g IV every 12 hours * Continue azithromycin 500 mg IV every 24 hours * DuoNeb as needed shortness of breath * Follow up sputum culture * Follow up legionella/pneumococcal antigens * Wean off ventilator as tolerated (3) BENIGN HYPERTENSION Status: Chronic Plan: Patient with history of hypertension. * Continue amlodipine * Carvedilol on hold for bradycardia (4) Tremor ICD Codes: R25.1 - Tremor Status: Chronic Plan: Patient with a history of benign essential tremors. * Propranolol on hold for bradycardia (5) Asthma ICD Codes: J45.909 - Asthma Status: Chronic Plan: Patient reports history of asthma. * See breathing treatments above * Continue Pulmicort * Received one day course of IV steroids (6) Alcohol abuse ICD Codes: F10.10 - Alcohol abuse Status: Chronic Plan: Patient reports drinking 6 beers every day. * Patient is intubated and sedated this time. * Sedation with propofol and fentanyl * Monitor for symptoms of withdrawal (7) Nutrition, metabolism, and development symptoms ICD Codes: R63.8 - Other symptoms and signs concerning food and fluid intake Plan: Diet: Orogastric tube has been placed and is being tube fed with Jevity 1.5 victor manuel formula at 50 ml/hr Monitor electrolytes and replace accordingly, placed on ICU electrolyte protocol Fluids: free water via ng-tube DVT prophylaxis with heparin and SCDs (Dayton Belle MD R3) Problem Qualifiers (1) CAP (community acquired pneumonia): Qualified Codes: J18.1 - Lobar pneumonia, unspecified organism Dayton Belle MD R3 Jun 28, 2017 14:58 Dre Buck MD Jun 29, 2017 21:34
[2017-06-28] MEDS: FREE WATER G-TUBE SCH ×2 (18:00→23:06)
[2017-06-28] MEDS ORDERED: POTASSIUM CHLORIDE 25 MEQ EFFERVESCENT TAB PO PRN (18:30)
[2017-06-28] MEDS: PRAVASTATIN SOD 80 MG TAB PO SCH (20:44)
[2017-06-29] VITALS (21 sets, daily range): BP systolic 133–182; BP diastolic 63–87; PULSE 47–77; RESP 12–26; TEMP 97.9–98.9; O2SAT 95–100
[2017-06-29 02:18] LABS: BICARBONATE 24.4 MEQ/L (21.0-32.0); CALCIUM 8.1 MG/DL (8.5-10.1); CREATININE 0.61 MG/DL (0.50-1.00)
[2017-06-29 02:19] LABS: HEMATOCRIT 40.4 % (35.0-46.0); HEMOGLOBIN 13.4 GM/DL (11.6-15.3); MEAN CELL VOLUME 92.2 FL (80.0-100.0); MEAN CORPUSCULAR HEMOGLOBIN 30.5 PG (27.0-34.0); MEAN CORPUSCULAR HGB CONC 33.1 % (32.0-36.0); MEAN PLATELET VOLUME 8.7 FL (7.0-11.0); PLATELET COUNT 297 TH/MM3 (150-450); RED BLOOD COUNT 4.38 MIL/MM3 (4.00-5.30); RED CELL DISTRIBUTION WIDTH 14.8 % (11.6-17.2); WHITE BLOOD COUNT 12.6 TH/MM3 (4.0-11.0)
[2017-06-29] MEDS: CHLORHEXIDINE GLUCONATE 2 % 1 PACK (2 CLOTHS)(taper/protocol) TOPICAL SCH (04:00)
[2017-06-29] MEDS: RESP: ALBUTEROL 2.5 MG/3 ML NEB (SCH) NEB ×4 (04:12→20:32)
--- NOTE | 2017-06-29 05:11 | RADRPT ---
EXAM DATE/TIME: 06/29/2017 03:44 [facility] COMPARISON: CHEST SINGLE AP, June 28, 2017, 3:11. INDICATIONS : Short of breath. MEDICAL HISTORY : Chronic obstructive pulmonary disease. Hypertension SURGICAL HISTORY : None. ENCOUNTER: Subsequent ACUITY: 4 - 6 days PAIN SCORE: 0/10 LOCATION: Bilateral chest FINDINGS: One ET tube and NG tube are well placed. The heart size is within normal limits. There is increased d ensity at the left base. The right lung is clear. CONCLUSION: Left base atelectasis/consolidation and/or effusion. Severo Harrell MD on June 29, 2017 at 5:09 Board Certified Radiologist. This report was verified electronically.
[2017-06-29] MEDS: FREE WATER G-TUBE SCH ×4 (06:00→20:00)
[2017-06-29] MEDS: INSULIN NovoLIN REGULAR SUPPLEMENTAL SCALE SQ SCH ×3 (06:00→17:38)
[2017-06-29] MEDS: HEPARIN SODIUM - SQ 10,000 UNITS/ML VIAL SQ SCH ×3 (07:00→22:10)
[2017-06-29] MEDS: RESP: ALBUTEROL 2.5 MG/IPRATROPIUM 0.5 MG NEB (SCH) INH ×4 (08:15→20:31)
[2017-06-29] MEDS: FAMOTIDINE 20 MG/2 ML VIAL IV PUSH SCH ×2 (09:48→22:11)
[2017-06-29] MEDS: SODIUM CHLORIDE 0.9% FLUSH 10 ML FLUSH IV FLUSH SCH ×2 (09:49→22:11)
[2017-06-29] MEDS: CHLORHEXIDINE 0.12% (ORAL KIT) 15 ML CUP MT SCH ×2 (09:49→22:11)
--- NOTE | 2017-06-29 10:19 | HHI.FPPN ---
Subjective Remarks Patient seen in ICU this morning. She remains intubated and mechanically ventilated. She is sedated for ventilator synchrony. She is on APRV currently with FiO2 of 40. She continues with tube feeds. Porter catheter is out. Rectal bag in place. No fevers overnight. Continuing to be bradycardic. (Dayton Belle MD R3) Objective Vitals Vital Signs Date Time Temp Pulse Resp B/P (MAP) Pulse Ox O2 Delivery O2 Flow Rate FiO2 06/29/17 08:16 100 40 06/29/17 06:00 48 06/29/17 04:13 100 40 06/29/17 04:00 57 06/29/17 04:00 40 06/29/17 04:00 98.4 47 12 158/70 (99) 100 06/29/17 02:00 65 06/29/17 00:45 100 40 06/29/17 00:00 98.9 54 13 158/70 (99) 100 06/29/17 00:00 40 06/29/17 00:00 51 06/28/17 22:00 53 06/28/17 20:14 100 40 06/28/17 20:00 97.9 51 13 156/70 (98) 100 06/28/17 20:00 52 06/28/17 20:00 40 06/28/17 18:00 53 06/28/17 16:00 61 06/28/17 16:00 98.0 61 13 166/77 (106) 100 06/28/17 15:04 100 40 06/28/17 14:00 49 06/28/17 12:00 48 06/28/17 12:00 98.3 48 13 140/67 (91) 100 06/28/17 11:07 100 40 I/O 06/28/17 06/28/17 06/28/17 06/29/17 06/29/17 06/29/17 07:00 15:00 23:00 07:00 15:00 23:00 Intake Total 263 ml 1045 ml 2196 ml 1113 ml Output Total 205 ml 68 ml 500 ml 800 ml Balance 58 ml 977 ml 1696 ml 313 ml IV Total 263 ml 1045 ml 698 ml Tube Feeding 978 ml 713 ml Tube Irrigant 120 ml Other 400 ml 400 ml Output Urine Total 205 ml 68 ml 500 ml 800 ml # Bowel Movements 0 2 (Dayton Belle MD R3) Result Diagram: 06/29/17 0156 06/29/17 0156 Objective Remarks General: Lying in bed, mechanically ventilated, NG tube in place, sedated Skin: No rashes or lesions HEENT: Normocephalic, no conjunctivitis, no nasal discharge, normal pharynx Neck: No JVD or lymphadenopathy CV: RRR, no murmurs, rubs, or gallops Lungs: Transmitted sounds from ventilator, clear to auscultation, no respiratory distress, APRV at 40% FiO2 GI: NG tube in place, 50 ml/hr feeds with Jevity 1.5 victor manuel formula, soft, nontender abdomen, normal bowel sounds Ext: No swelling or tenderness of the calves (Dayton Belle MD R3) A/P Assessment and Plan 77-year-old -[place] female with a past medical history significant for hyperlipidemia, benign essential tremor, hypertension, and A. fib. Admitted for left lower lobe pneumonia. On 06/27/17 patient developed acute respiratory failure and is transferred to the ICU, currently mechanically ventilated. Discharge Planning Transferred to ICU for intubation, discharge pending medical improvement (Dayton Belle MD R3) Attending Attestation THIS CASE WAS DISCUSSED WITH THE RESIDENT PHYSICIANS. I HAVE REVIEWED THE RECORD , PATIENT SEEN AND EXAMINED< AND AGREE WITH THE ABOVE NOTE AND PLAN OF CARE WAS DISCUSSED. I HAVE AUTHORIZED THE ORDERS (Dre Buck MD) Problem List: (1) Acute respiratory failure ICD Codes: J96.00 - Acute respiratory failure, unspecified whether with hypoxia or hypercapnia Status: Acute Plan: Patient developed acute respiratory failure on 06/27. Transferred to the ICU. Intubated by the director of analytics. Patient is sedated. * Critical care in on board * Wean FiO2 for goal SPO2 greater than 90% * See antibiotics below * Decadron 4 mg IV every 6 hours for 24 hours, now discontinued (2) CAP (community acquired pneumonia) ICD Codes: J18.9 - Pneumonia, unspecified organism Status: Acute Plan: Community-acquired pneumonia. Initially with fever and leukocytosis, and with acute respiratory failure. Now with leukocytosis resolved and afebrile. Breathing status starting to improve, weaning off ventilator as tolerated. Hopefully she is turning a corner and will continue to improve. Blood cultures negative. Flu A and B negative. Sputum culture negative. Legionella and streptococcus antigens negative. * Continue ceftriaxone 1 g IV every 12 hours * Continue azithromycin 500 mg IV every 24 hours * DuoNeb as needed shortness of breath * Wean off ventilator as tolerated (3) BENIGN HYPERTENSION Status: Chronic Plan: Patient with history of hypertension. * Continue amlodipine * Carvedilol on hold for bradycardia (4) Tremor ICD Codes: R25.1 - Tremor Status: Chronic Plan: Patient with a history of benign essential tremors. * Propranolol on hold for bradycardia (5) Asthma ICD Codes: J45.909 - Asthma Status: Chronic Plan: Patient reports history of asthma. * See breathing treatments above * Continue Pulmicort * Received one day course of IV steroids (6) Alcohol abuse ICD Codes: F10.10 - Alcohol abuse Status: Chronic Plan: Patient reports drinking 6 beers every day. * Patient is intubated and sedated this time. * Monitor for symptoms of withdrawal (7) Nutrition, metabolism, and development symptoms ICD Codes: R63.8 - Other symptoms and signs concerning food and fluid intake Plan: Diet: Orogastric tube has been placed and is being tube fed with Jevity 1.5 victor manuel formula at 50 ml/hr Monitor electrolytes and replace accordingly, placed on ICU electrolyte protocol Fluids: free water via ng-tube DVT prophylaxis with heparin and SCDs (Dayton Belle MD R3) Problem Qualifiers (1) CAP (community acquired pneumonia): Qualified Codes: J18.1 - Lobar pneumonia, unspecified organism Dayton Belle MD R3 Jun 29, 2017 10:19 Dre Buck MD Jun 30, 2017 10:23
[2017-06-29] MEDS: AZITHROMYCIN INJ 500 MG in SODIUM CHLOR 0.9% 250 ML INJ 250 ML IV SCH (11:53)
[2017-06-29] MEDS: methylPREDNISolone SOD SUCC 40 MG/1 ML VIAL IV PUSH SCH ×2 (11:54→22:10)
[2017-06-29] MEDS: fentaNYL 2,500 MCG/NS 250 ML IV PRN (11:56)
[2017-06-29] MEDS: cefTRIAXone INJ 1,000 MG in SODIUM CHLORIDE 0.9% INJ 100 ML IV SCH (11:57)
[2017-06-29] MEDS: LACTATED RINGER'S 1000 ML INJ 1,000 ML IV SCH (14:24)
--- NOTE | 2017-06-29 15:22 | HHI.CCPN ---
Subjective Remarks/Hospital Course Hospital Course: This is a 77-year-old female who presented on 06/25 with shortness of breath, cough, fever and was found to have community-acquired pneumonia. She was started on IV antibiotics. She was doing well on nasal cannula when she had an acute decompensation this morning. Rapid response was called. She was noted to have an SPO2 of 70% on a nonrebreather. She was emergently transferred to the ICU. I evaluated her on immediate arrival to the ICU. I emergently intubated the patient, please see separate procedure for details. Of note, the patient did not have any IV access when she arrived to the ICU. I emergently placed right-sided EJ 18-gauge peripheral IV through which we induced anesthesia for intubation. Also of note, the patient wasn't unanticipated difficult airway with significant decreases in neck flexion and extension which was not noted due to the emergent nature of her intubation. This required mask ventilation GlideScope intubation. It was noted on the GlideScope that she had significant bloody secretions in the hypopharynx, less likely due to first laryngoscopy, but unclear what this is related to. She also had very edematous appearing cords. No additional information is available from the patient. The remainder of the history is obtained from medical record. subjective: 06/28: aeration improved on APRV mode of ventilation. wbc continues to downtrend. adequately sedated on fentanyl infusion. 06/29: CXR without improvement. again I ultrasounded her left lung field and there is less than 1.5 cm pocket of fluid down by the diaphragm, with good lung sliding both anteriorly and posteriorly throughout the left lung field. spoke with radiology and the white-out of the left lower lung field most likely represents densely consolidated pneumonia without effusion, particularly with minimal fluid in the plural space. after 24h of aggressive suction/lavage, minimal secretions coming out of ett. fio2 improving. wbc slightly uptrended. also, new diarrhea today which is copious: very early to consider c. diff as complication of abx, but unclear etiology. may be from tube feeds. Objective Vital Signs Date Time Temp Pulse Resp B/P (MAP) Pulse Ox O2 Delivery O2 Flow Rate FiO2 06/29/17 12:22 95 40 06/29/17 12:00 98.0 50 13 133/70 (91) 06/27/17 08:35 Partial Rebreather 15.00 Intake and Output 06/29/17 06/29/17 06/30/17 08:00 16:00 00:00 Intake Total 1113 ml 1330 ml Output Total 800 ml Balance 313 ml 1330 ml Result Diagram: 06/29/17 0156 06/29/17 0156 Other Results Microbiology Date/Time Source Procedure Growth Status 06/27/17 12:46 Bronchial Washings Other Gram Stain - Final Complete 06/27/17 12:46 Bronchial Washings Other Bronchial Culture - Final RARE GROWTH NORMAL RESPIRATORY VANESSA Complete 06/27/17 12:44 Bronchial Washings Bronchial Gram Stain - Final Complete 06/27/17 12:44 Bronchial Washings Bronchial Bronchial Culture - Final RARE GROWTH NORMAL RESPIRATORY VANESSA Complete 06/27/17 09:42 Sputum Endotracheal Gram Stain - Final Complete 06/27/17 09:42 Sputum Endotracheal Sputum Culture - Final LIGHT GROWTH NORMAL RESPIRATORY VANESSA Complete 06/28/17 18:10 Urine Catheterized Urine Legionella Antigen - Final PRESUMPTIVE NEGATIVE FOR LEGIONELLA P... Complete 06/28/17 18:10 Urine Catheterized Urine Streptococcus pneumoniae Antigen (M - Final PRESUMPTIVE NEGATIVE FOR STREPTOCOCCU... Complete Imaging Last Impressions Chest X-Ray 06/25/17 1045 Signed Impressions: Service Date/Time: Sunday, June 25, 2017 10:48 - CONCLUSION: 1. Left lower lobe air space consolidation and likely trace pleural effusion. Findings are concerning for pneumonia in the appropriate clinical setting. Janusz Chris MD Objective Remarks GENERAL: Elderly female, intubated, sedated, critically ill. HEENT: Normocephalic. Atraumatic. Pupils equal, round, reactive, conjugate. Mucous membranes are moist NECK: Trachea is midline. There is no JVD. CHEST: APRV 32/0, 5:1, 40% fio2. decreased BS on left, particularly left posterior. CARDIOVASCULAR: bradycardic rate, regular rhythm. Heart rate in the 40s. Sinus by telemetry. ABDOMEN: Soft, nontender, nondistended. No guarding. MUSCULOSKELETAL: Pulses 2+. No peripheral edema. Lower extremity venous stasis changes noted NEUROLOGICAL: RASS -2. intermittently follows commands. A/P Assessment and Plan Assessment: 77-year-old female with community-acquired pneumonia and associated decompensated acute hypoxic respiratory failure. clinically improving. remains on high vent settings and mechanical support. will wean vent as tolerated. unlikely to benefit from repeat bronchoscopy and not enough visible fluid on ultrasound for safe thoracentesis. continue abx. follow up cultures. Remains critically ill. if she does not improve in another 24h, would broaden abx. for now will leave coverage as is. will send c. diff pcr and add fiber to tube feeds. Plan by systems: Neurologic: Acute Metabolic encephalopathy Alcohol dependence fentanyl for goal RASS -2 Avoid long-acting sedating meds Frequent neuro checks Respiratory: Acute hypoxic and hypercarbic respiratory failure - persistent. off pathway. Community-acquired pneumonia - severe Vent bundle Head of bed at 30 Nebs transition to PRVC mode ventilation. start daily sbt's. Wean FiO2 for goal SPO2 greater than 90% Cardiovascular: Severe Sepsis- resolving. Sinus bradycardia d/c mivf. start gentle diuresis. bradycardia likely secondary to sedation. remains hemodynamically stable. Renal: d/c mays. -- Strict I/Os FEN/GI: Acute protein calorie malnutrition-moderate Hypokalemia Intravascular hypovolemia Hypernatremia diarrhea OGT. continue tube feeds add fiber to tube feeds Consult nutrition for goal recommendations ICU electrolyte protocol Daily BMP increase free water 300mL po q4h Heme/ID: Community acquired pneumonia Severe sepsis Continue Rocephin and azithromycin. Follow-up cultures If she continues to worsen will broaden, leukocytosis improving. afebrile. send c. diff pcr. blood cultures 06/26 NGTD sputum culture and BALs from 06/28 NGTD Endocrine: Hyperglycemia of critical illness -- SSI, medium scale, every 6 Prophylaxis: GI Prophylaxis Pepcid IV DVT Prophylaxis -- SCDs Subcutaneous heparin Lines: Peripheral IVs Dispo: remain in ICU. Critically ill. Venkatesh Hylton MD Jun 29, 2017 15:22
[2017-06-29] MEDS ORDERED: FUROSEMIDE 20 MG/2 ML VIAL IV PUSH ONE (15:30)
[2017-06-29] MEDS: NUTRISOURCE FIBER POWDER 1 PACK G-TUBE SCH ×2 (15:45→21:00)
[2017-06-29] MEDS: PRAVASTATIN SOD 80 MG TAB PO SCH (22:11)
[2017-06-29 23:12] LABS: BILIRUBIN, URINE NEG (NEG); BLOOD, URINE NEG (NEG); GLUCOSE,URINE 300 mg/dL (NEG); KETONE, URINE NEG (NEG); MUCUS URINE FEW /lpf (OCC); NITRITE,URINE NEG (NEG); SQUAMOUS EPITHELIAL CELL URINE 1 /hpf (0-5); URINE COLOR YELLOW (YELLW/STRAW); URINE LEUKOCYTE ESTERASE NEG (NEG)
[2017-06-30] VITALS (22 sets, daily range): BP systolic 118–207; BP diastolic 58–96; PULSE 49–102; RESP 13–23; TEMP 97.4–99.8; O2SAT 100
[2017-06-30] MEDS: INSULIN NovoLIN REGULAR SUPPLEMENTAL SCALE SQ SCH ×3 (00:53→12:11)
[2017-06-30] MEDS: RESP: ALBUTEROL 2.5 MG/IPRATROPIUM 0.5 MG NEB (SCH) INH ×4 (03:40→15:53)
[2017-06-30] MEDS: RESP: ALBUTEROL 2.5 MG/3 ML NEB (SCH) NEB ×2 (04:00→10:00)
[2017-06-30] MEDS: CHLORHEXIDINE GLUCONATE 2 % 1 PACK (2 CLOTHS)(taper/protocol) TOPICAL SCH (04:00)
[2017-06-30] MEDS: FREE WATER G-TUBE SCH ×7 (04:00→23:52)
[2017-06-30 05:40] LABS: HEMATOCRIT 38.5 % (35.0-46.0); HEMOGLOBIN 12.9 GM/DL (11.6-15.3); MEAN CORPUSCULAR HEMOGLOBIN 30.8 PG (27.0-34.0); MEAN CORPUSCULAR HGB CONC 33.5 % (32.0-36.0); MEAN PLATELET VOLUME 8.7 FL (7.0-11.0); PLATELET COUNT 266 TH/MM3 (150-450); RED BLOOD COUNT 4.19 MIL/MM3 (4.00-5.30); RED CELL DISTRIBUTION WIDTH 14.2 % (11.6-17.2); WHITE BLOOD COUNT 14.7 TH/MM3 (4.0-11.0)
[2017-06-30 06:03] LABS: BICARBONATE 31.4 MEQ/L (21.0-32.0); CALCIUM 7.9 MG/DL (8.5-10.1); CREATININE 0.61 MG/DL (0.50-1.00)
[2017-06-30] MEDS: HEPARIN SODIUM - SQ 10,000 UNITS/ML VIAL SQ SCH ×3 (06:05→23:51)
[2017-06-30] MEDS: POTASSIUM CHLOR 20 MEQ PREMIX 100 ML IV PRN ×2 (06:32→12:10)
[2017-06-30] MEDS: NUTRISOURCE FIBER POWDER 1 PACK G-TUBE SCH ×2 (09:00→21:00)
[2017-06-30] MEDS ORDERED: hydrALAZINE HCL 20 MG/ML VIAL IV PUSH PRN (09:00)
[2017-06-30] MEDS: DOXAZOSIN MESYLATE 2 MG TAB PO SCH (09:02)
[2017-06-30] MEDS: SODIUM CHLORIDE 0.9% FLUSH 10 ML FLUSH IV FLUSH SCH ×2 (09:02→21:00)
[2017-06-30] MEDS: CARVEDILOL 6.25 MG TAB PO SCH ×2 (09:02→21:00)
[2017-06-30] MEDS: FAMOTIDINE 20 MG/2 ML VIAL IV PUSH SCH ×2 (09:03→23:51)
[2017-06-30] MEDS: CHLORHEXIDINE 0.12% (ORAL KIT) 15 ML CUP MT SCH ×2 (09:03→20:00)
[2017-06-30] MEDS: methylPREDNISolone SOD SUCC 40 MG/1 ML VIAL IV PUSH SCH ×2 (09:47→23:51)
[2017-06-30] MEDS: fentaNYL 2,500 MCG/NS 250 ML IV PRN (09:47)
[2017-06-30] MEDS: cefTRIAXone INJ 1,000 MG in SODIUM CHLORIDE 0.9% INJ 100 ML IV SCH (09:47)
--- NOTE | 2017-06-30 10:42 | HHI.FPPN ---
Subjective Remarks Patient remains intubated and mechanically ventilated. She remains sedated, although this morning her eyes are open and she is responding to simple commands. She continues with PRVC with FiO2 of 40, PEEP of 10. X-ray yesterday showed some interval worsening, likely consolidated pneumonia, although effusion is in differential. She had copious amounts of stool yesterday and a c.diff is negative. She continues with tube feedings. (Dayton Belle MD R3) Objective Vitals Vital Signs Date Time Temp Pulse Resp B/P (MAP) Pulse Ox O2 Delivery O2 Flow Rate FiO2 06/30/17 09:33 100 40 06/30/17 06:00 50 06/30/17 04:00 69 06/30/17 04:00 98.0 69 20 189/83 (118) 100 06/30/17 04:00 40 06/30/17 03:37 100 40 06/30/17 02:00 49 06/30/17 00:00 40 06/30/17 00:00 97.4 54 20 135/60 (85) 100 06/30/17 00:00 54 06/29/17 23:55 100 40 06/29/17 23:51 100 40 06/29/17 22:00 67 06/29/17 20:34 100 40 06/29/17 20:00 66 06/29/17 20:00 40 06/29/17 20:00 97.9 51 20 135/63 (87) 100 06/29/17 18:00 55 06/29/17 17:34 99 40 06/29/17 16:21 100 40 06/29/17 16:00 98.0 77 26 182/87 (118) 100 06/29/17 16:00 77 06/29/17 16:00 40 06/29/17 14:00 51 06/29/17 12:22 95 40 06/29/17 12:00 98.0 50 13 133/70 (91) 100 06/29/17 12:00 40 06/29/17 12:00 50 I/O 06/29/17 06/29/17 06/29/17 06/30/17 06/30/17 06/30/17 07:00 15:00 23:00 07:00 15:00 23:00 Intake Total 1113 ml 1330 ml 1948 ml 1956 ml 53 ml Output Total 800 ml 1575 ml 900 ml Balance 313 ml 1330 ml 373 ml 1056 ml 53 ml IV Total 1330 ml 499 ml 136 ml 53 ml Tube Feeding 713 ml 669 ml 720 ml Tube Irrigant 180 ml 200 ml Other 400 ml 600 ml 900 ml Output Urine Total 800 ml 1575 ml 900 ml # Bowel Movements 2 1 1 (Dayton Belle MD R3) Result Diagram: 06/30/17 0330 06/30/17 0330 Imaging Last 72 hours Impressions Chest X-Ray 06/29/17 0500 Signed Impressions: Service Date/Time: Thursday, June 29, 2017 03:44 - CONCLUSION: Left base atelectasis/consolidation and/or effusion. Severo Harrell MD Chest X-Ray 06/28/17 0500 Signed Impressions: Service Date/Time: Wednesday, June 28, 2017 03:11 - CONCLUSION: Left lower lobe consolidation or atelectasis. Severo Harrell MD Objective Remarks General: Lying in bed, mechanically ventilated, NG-tube in place, eyes open, following simple commands. Skin: No rashes or lesions HEENT: Normocephalic, no conjunctivitis, no nasal discharge, normal pharynx Neck: No JVD or lymphadenopathy CV: RRR, no murmurs, rubs, or gallops Lungs: Transmitted sounds from ventilator, clear to auscultation, no respiratory distress, APRV at 40% FiO2 GI: NG tube in place, 60 ml/hr feeds with Jevity 1.5 victor manuel formula, soft, nontender abdomen, normal bowel sounds Ext: No swelling or tenderness of the calves (Dayton Belle MD R3) A/P Assessment and Plan 77-year-old -Indian female with a past medical history significant for hyperlipidemia, benign essential tremor, hypertension, and A. fib. Admitted for left lower lobe pneumonia. On 06/27/17 patient developed acute respiratory failure and is transferred to the ICU, currently mechanically ventilated. Discharge Planning Transferred to ICU for intubation, discharge pending medical improvement (Dayton Belle MD R3) Attending Attestation ... Medical rounds were performed this morning with Dr Manfred Belle, case discussed in detail, patient seen and examined,agree with above documentation and assessment, see Orders (Dre Buck MD) Problem List: (1) Acute respiratory failure ICD Codes: J96.00 - Acute respiratory failure, unspecified whether with hypoxia or hypercapnia Status: Acute Plan: Patient developed acute respiratory failure on 06/27. Transferred to the ICU. Intubated by the sporting goods sales associate. Patient is sedated. * Critical care is on board. * Wean FiO2 for goal SPO2 greater than 90%. Current FiO2 of 40%. * See antibiotics below (2) CAP (community acquired pneumonia) ICD Codes: J18.9 - Pneumonia, unspecified organism Status: Acute Plan: Patient's physical exam and imaging are suggestive of community-acquired pneumonia. Initially with fever and leukocytosis, and with acute respiratory failure. Now with leukocytosis resolved and afebrile. Breathing status starting to improve, weaning off ventilator as tolerated. Hopefully she is turning a corner and will continue to improve. Blood cultures negative to date. Flu A and B negative. Sputum cultures negative. * Continue ceftriaxone 1 g IV every 12 hours * Continue azithromycin 500 mg IV every 24 hours * DuoNeb as needed shortness of breath * Wean off ventilator as tolerated, spontaneous breathing trials (3) BENIGN HYPERTENSION Status: Chronic Plan: Patient with history of hypertension. * Continue amlodipine * Carvedilol restarted * Labetalol PRN (4) Tremor ICD Codes: R25.1 - Tremor Status: Chronic Plan: Patient with a history of benign essential tremors. * Propranolol on hold for bradycardia (5) Asthma ICD Codes: J45.909 - Asthma Status: Chronic Plan: Patient reports history of asthma. * See breathing treatments above * Continue Pulmicort * Received one day course of IV steroids (6) Alcohol abuse ICD Codes: F10.10 - Alcohol abuse Status: Chronic Plan: Patient reports drinking 6 beers every day. * Patient is intubated and sedated this time. * Sedation with propofol and fentanyl * Monitor for symptoms of withdrawal (7) Nutrition, metabolism, and development symptoms ICD Codes: R63.8 - Other symptoms and signs concerning food and fluid intake Plan: Diet: Orogastric tube has been placed and is being tube fed with Jevity 1.5 victor manuel formula at 50 ml/hr Monitor electrolytes and replace accordingly, placed on ICU electrolyte protocol Fluids: free water via ng-tube DVT prophylaxis with heparin and SCDs (Dayton Belle MD R3) Problem Qualifiers (1) CAP (community acquired pneumonia): Qualified Codes: J18.1 - Lobar pneumonia, unspecified organism Dayton Belle MD R3 Jun 30, 2017 10:42 Dre Buck MD Jul 01, 2017 09:18
[2017-06-30] MEDS: AZITHROMYCIN INJ 500 MG in SODIUM CHLOR 0.9% 250 ML INJ 250 ML IV SCH (12:11)
--- NOTE | 2017-06-30 17:23 | HHI.CCPN ---
Subjective Remarks/Hospital Course Hospital Course: This is a 77-year-old female who presented on 06/25 with shortness of breath, cough, fever and was found to have community-acquired pneumonia. She was started on IV antibiotics. She was doing well on nasal cannula when she had an acute decompensation this morning. Rapid response was called. She was noted to have an SPO2 of 70% on a nonrebreather. She was emergently transferred to the ICU. I evaluated her on immediate arrival to the ICU. I emergently intubated the patient, please see separate procedure for details. Of note, the patient did not have any IV access when she arrived to the ICU. I emergently placed right-sided EJ 18-gauge peripheral IV through which we induced anesthesia for intubation. Also of note, the patient wasn't unanticipated difficult airway with significant decreases in neck flexion and extension which was not noted due to the emergent nature of her intubation. This required mask ventilation GlideScope intubation. It was noted on the GlideScope that she had significant bloody secretions in the hypopharynx, less likely due to first laryngoscopy, but unclear what this is related to. She also had very edematous appearing cords. No additional information is available from the patient. The remainder of the history is obtained from medical record. subjective: 06/28: aeration improved on APRV mode of ventilation. wbc continues to downtrend. adequately sedated on fentanyl infusion. 06/29: CXR without improvement. again I ultrasounded her left lung field and there is less than 1.5 cm pocket of fluid down by the diaphragm, with good lung sliding both anteriorly and posteriorly throughout the left lung field. spoke with radiology and the white-out of the left lower lung field most likely represents densely consolidated pneumonia without effusion, particularly with minimal fluid in the plural space. after 24h of aggressive suction/lavage, minimal secretions coming out of ett. fio2 improving. wbc slightly uptrended. also, new diarrhea today which is copious: very early to consider c. diff as complication of abx, but unclear etiology. may be from tube feeds. 06/30: improving from a pulmonary standpoint. passed SBT. densely consolidated LLL persists: may need to obtain CT chest to rule out underlying mass. c. diff negative. Objective Vital Signs Date Time Temp Pulse Resp B/P (MAP) Pulse Ox O2 Delivery O2 Flow Rate FiO2 06/30/17 16:26 100 Nasal Cannula 4 06/30/17 16:00 40 06/30/17 06:00 50 06/30/17 04:00 98.0 20 189/83 (118) Intake and Output 06/30/17 06/30/17 07/01/17 08:00 16:00 00:00 Intake Total 1956 ml 53 ml Output Total 900 ml Balance 1056 ml 53 ml Result Diagram: 06/30/17 0330 06/30/17 0330 Other Results Microbiology Date/Time Source Procedure Growth Status 06/28/17 18:10 Urine Catheterized Urine Legionella Antigen - Final PRESUMPTIVE NEGATIVE FOR LEGIONELLA P... Complete 06/28/17 18:10 Urine Catheterized Urine Streptococcus pneumoniae Antigen (M - Final PRESUMPTIVE NEGATIVE FOR STREPTOCOCCU... Complete Laboratory Tests Test 06/30/17 15:05 Blood Gas Puncture Site LT RADIAL Blood Gas Patient Temperature 98.6 Blood Gas HCO3 31 mmol/L (22-26) Blood Gas Base Excess 6.2 mmol/L (-2-2) Blood Gas Oxygen Saturation 97 % (90-100) Arterial Blood pH 7.43 (7.380-7.420) Arterial Blood Partial Pressure CO2 47 mmHg (38-42) Arterial Blood Partial Pressure O2 121 mmHg (61-120) Arterial Blood Oxygen Content 18.4 Vol % (12.0-20.0) Arterial Blood Carboxyhemoglobin 0.4 % (0-4) Arterial Blood Methemoglobin 1.1 % (0-2) Blood Gas Hemoglobin 13.4 G/DL (12.0-16.0) Oxygen Delivery Device VENTILATOR Blood Gas Ventilator Setting CPAP+5/PS5 Blood Gas Inspired Oxygen 40 % Imaging Last Impressions Chest X-Ray 06/25/17 1045 Signed Impressions: Service Date/Time: Sunday, June 25, 2017 10:48 - CONCLUSION: 1. Left lower lobe air space consolidation and likely trace pleural effusion. Findings are concerning for pneumonia in the appropriate clinical setting. Janusz Chris MD Objective Remarks GENERAL: Elderly female, intubated, sedated, critically ill. HEENT: Normocephalic. Atraumatic. Pupils equal, round, reactive, conjugate. Mucous membranes are moist NECK: Trachea is midline. There is no JVD. CHEST:PSV 40/5/5. decreased BS on left, particularly left posterior. CARDIOVASCULAR: bradycardic rate, regular rhythm. Heart rate in the 50s. Sinus by telemetry. ABDOMEN: Soft, nontender, nondistended. No guarding. MUSCULOSKELETAL: Pulses 2+. No peripheral edema. Lower extremity venous stasis changes noted NEUROLOGICAL: RASS -1. passed 5-second head lift. intermittently follows commands. A/P Assessment and Plan Assessment: 77-year-old female with community-acquired pneumonia and associated decompensated acute hypoxic respiratory failure. clinically improving. will attempt extubation with aggressive pulmonary toilet. continues to improve. will order CT chest to rule out underlying mass given how densely consolidated the LLL is. Culture data has not proved useful, but clinically improving on current regimen. Plan by systems: Neurologic: Acute Metabolic encephalopathy Alcohol dependence fentanyl for goal RASS -2 Avoid long-acting sedating meds Frequent neuro checks Respiratory: Acute hypoxic and hypercarbic respiratory failure - improving. Community-acquired pneumonia - severe Vent bundle Head of bed at 30 Nebs wean to extubate. aggressive pulmonary toilet. Cardiovascular: Severe Sepsis- resolving. Sinus bradycardia bradycardia likely secondary to sedation. remains hemodynamically stable. Renal: Urinary Retention start cardura replace mays. d/c mays again in 48h. -- Strict I/Os FEN/GI: Acute protein calorie malnutrition-moderate Hypokalemia Intravascular hypovolemia- resolved. Hypernatremia- improving. diarrhea- improving. OGT. continue tube feeds add fiber to tube feeds Consult nutrition for goal recommendations ICU electrolyte protocol Daily BMP free water 300mL po q4h Heme/ID: Community acquired pneumonia Severe sepsis Continue Rocephin and azithromycin. Follow-up cultures If she continues to worsen will broaden, leukocytosis improving. afebrile. c. diff PCR negative. blood cultures 06/26 NGTD sputum culture and BALs from 06/28 NGTD Endocrine: Hyperglycemia of critical illness -- SSI, medium scale, every 6 Prophylaxis: GI Prophylaxis Pepcid IV DVT Prophylaxis -- SCDs Subcutaneous heparin Lines: Peripheral IVs Dispo: remain in ICU. still high risk for decompensation. Venkatesh Hylton MD Jun 30, 2017 17:23
[2017-06-30] MEDS: PRAVASTATIN SOD 80 MG TAB PO SCH (21:00)
--- NOTE | 2017-06-30 23:47 | RADRPT ---
EXAM DATE/TIME: 06/30/2017 21:39 [facility] COMPARISON: CHEST SINGLE AP, June 29, 2017, 3:44. INDICATIONS : Respiratory distress. RADIATION DOSE: 9.59 CTDIvol (mGy) MEDICAL HISTORY : Hypertension. Cardiovascular disease SURGICAL HISTORY : Appendectomy. ENCOUNTER: Initial ACUITY: 1 day PAIN SCALE: 3/10 LOCATION: Bilateral chest TECHNIQUE: Volumetric scanning of the chest was performed. Using automated exposure control and adjustment of t he mA and/or kV according to patient size, radiation dose was kept as low as reasonably achievable to obtain optimal diagnostic quality images. DICOM format image data is available electronically for r eview and comparison. Follow-up recommendations for detected pulmonary nodules are based at a minimum on nodule size and pa tient risk factors according to Fleischner Society Guidelines. FINDINGS: There is collapse and volume loss in the left lower lobe. The left lower lobe bronchus is abruptly n arrowed at its origin and no significant air bronchograms are seen in the collapsed left lower lobe. There is a small associated left pleural effusion which measures up to 2 cm thickness. The right dequan ng is clear. No evidence of mediastinal adenopathy. The axilla is unremarkable. There is a 3.3 cm mass in the left supraclavicular region which appears to arise from the thyroid gland, as smooth dontrell ins and mild hypodensity centrally. This mass causes tracheal deviation towards the right. Wide win dows for bony detail demonstrate the osseous structures to be osteopenic. CONCLUSION: 1. Collapse of the left lower lobe with truncation of the lower lobe bronchus at its origin. This ra ises the possibility of either mucous plugging or a tumor obstructing the lower lobe bronchus. 2. 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 Job Jasmine MD on June 30, 2017 at 23:42 Board Certified Radiologist. This report was verified electronically.
[2017-07-01] VITALS (20 sets, daily range): BP systolic 138–187; BP diastolic 64–92; PULSE 65–114; RESP 20–43; TEMP 97.9–98.8; O2SAT 91–100
[2017-07-01] MEDS: MELATONIN 5 MG TAB PO PRN ×2 (01:39→20:17)
[2017-07-01] MEDS: FREE WATER G-TUBE SCH ×2 (04:00→08:00)
[2017-07-01] MEDS: CHLORHEXIDINE GLUCONATE 2 % 1 PACK (2 CLOTHS)(taper/protocol) TOPICAL SCH (04:00)
[2017-07-01] MEDS: RESP: ALBUTEROL 2.5 MG/3 ML NEB (SCH) NEB ×3 (04:13→17:06)
[2017-07-01] MEDS: LABETALOL HCL 100 MG/20 ML VIAL IV PUSH PRN ×2 (04:45→06:04)
[2017-07-01 05:01] LABS: HEMATOCRIT 41.4 % (35.0-46.0); HEMOGLOBIN 13.6 GM/DL (11.6-15.3); MEAN CELL VOLUME 90.8 FL (80.0-100.0); MEAN CORPUSCULAR HEMOGLOBIN 29.7 PG (27.0-34.0); MEAN CORPUSCULAR HGB CONC 32.7 % (32.0-36.0); MEAN PLATELET VOLUME 8.5 FL (7.0-11.0); PLATELET COUNT 279 TH/MM3 (150-450); RED BLOOD COUNT 4.56 MIL/MM3 (4.00-5.30); RED CELL DISTRIBUTION WIDTH 14.1 % (11.6-17.2); WHITE BLOOD COUNT 17.3 TH/MM3 (4.0-11.0)
[2017-07-01 05:33] LABS: BICARBONATE 30.5 MEQ/L (21.0-32.0); CALCIUM 8.4 MG/DL (8.5-10.1); CREATININE 0.47 MG/DL (0.50-1.00)
[2017-07-01] MEDS: INSULIN NovoLIN REGULAR SUPPLEMENTAL SCALE SQ SCH ×4 (06:00→17:52)
[2017-07-01] MEDS: HEPARIN SODIUM - SQ 10,000 UNITS/ML VIAL SQ SCH ×3 (06:03→23:10)
[2017-07-01] MEDS: CHLORHEXIDINE 0.12% (ORAL KIT) 15 ML CUP MT SCH ×2 (08:00→20:00)
[2017-07-01] MEDS: SODIUM CHLORIDE 0.9% FLUSH 10 ML FLUSH IV FLUSH SCH ×2 (08:44→20:18)
[2017-07-01] MEDS: CARVEDILOL 6.25 MG TAB PO SCH ×3 (08:45→21:00)
[2017-07-01] MEDS: DOXAZOSIN MESYLATE 2 MG TAB PO SCH (08:45)
[2017-07-01] MEDS: FAMOTIDINE 20 MG/2 ML VIAL IV PUSH SCH ×2 (08:45→20:16)
[2017-07-01] MEDS: RESP: ALBUTEROL 2.5 MG/IPRATROPIUM 0.5 MG NEB (SCH) INH ×2 (08:54→21:13)
[2017-07-01] MEDS: NUTRISOURCE FIBER POWDER 1 PACK G-TUBE SCH ×2 (09:00→20:18)
[2017-07-01] MEDS ORDERED: FLUMAZENIL 0.5 MG/5 ML VIAL IV PUSH PRN (09:45)
[2017-07-01] MEDS ORDERED: LORazepam 1 MG TAB PO PRN (09:45)
[2017-07-01] MEDS ORDERED: LORazepam 2 MG/ML VIAL IV PUSH PRN ×4 (09:45)
[2017-07-01] MEDS ORDERED: LORazepam 2 MG TAB PO PRN (09:45)
[2017-07-01] MEDS ORDERED: hydrALAZINE HCL 20 MG/ML VIAL IV PUSH PRN (10:15)
[2017-07-01] MEDS ORDERED: METOPROLOL TARTRATE 50 MG TAB PO SCH (10:15)
--- NOTE | 2017-07-01 10:29 | HHI.CCPN ---
Subjective Remarks/Hospital Course Hospital Course: This is a 77-year-old female who presented on 06/25 with shortness of breath, cough, fever and was found to have community-acquired pneumonia. She was started on IV antibiotics. She was doing well on nasal cannula when she had an acute decompensation this morning. Rapid response was called. She was noted to have an SPO2 of 70% on a nonrebreather. She was emergently transferred to the ICU. I evaluated her on immediate arrival to the ICU. I emergently intubated the patient, please see separate procedure for details. Of note, the patient did not have any IV access when she arrived to the ICU. I emergently placed right-sided EJ 18-gauge peripheral IV through which we induced anesthesia for intubation. Also of note, the patient wasn't unanticipated difficult airway with significant decreases in neck flexion and extension which was not noted due to the emergent nature of her intubation. This required mask ventilation GlideScope intubation. It was noted on the GlideScope that she had significant bloody secretions in the hypopharynx, less likely due to first laryngoscopy, but unclear what this is related to. She also had very edematous appearing cords. No additional information is available from the patient. The remainder of the history is obtained from medical record. subjective: 06/28: aeration improved on APRV mode of ventilation. wbc continues to downtrend. adequately sedated on fentanyl infusion. 06/29: CXR without improvement. again I ultrasounded her left lung field and there is less than 1.5 cm pocket of fluid down by the diaphragm, with good lung sliding both anteriorly and posteriorly throughout the left lung field. spoke with radiology and the white-out of the left lower lung field most likely represents densely consolidated pneumonia without effusion, particularly with minimal fluid in the plural space. after 24h of aggressive suction/lavage, minimal secretions coming out of ett. fio2 improving. wbc slightly uptrended. also, new diarrhea today which is copious: very early to consider c. diff as complication of abx, but unclear etiology. may be from tube feeds. 06/30: improving from a pulmonary standpoint. passed SBT. densely consolidated LLL persists: may need to obtain CT chest to rule out underlying mass. c. diff negative. 07/01 Patient was extubated yesterday on 2L oxygen, hypertensive. Objective Vital Signs Date Time Temp Pulse Resp B/P (MAP) Pulse Ox O2 Delivery O2 Flow Rate FiO2 07/01/17 08:55 100 Nasal Cannula 2.00 07/01/17 06:00 91 07/01/17 04:00 97.9 24 187/85 (119) 06/30/17 16:00 40 Intake and Output 07/01/17 07/01/17 07/02/17 08:00 16:00 00:00 Output Total 1500 ml Balance -1500 ml Result Diagram: 07/01/17 0427 07/01/17 0427 Other Results Laboratory Tests Test 06/30/17 15:05 07/01/17 04:27 Blood Gas Puncture Site LT RADIAL Blood Gas Patient Temperature 98.6 Blood Gas HCO3 31 mmol/L Blood Gas Base Excess 6.2 mmol/L Blood Gas Oxygen Saturation 97 % Arterial Blood pH 7.43 Arterial Blood Partial Pressure CO2 47 mmHg Arterial Blood Partial Pressure O2 121 mmHg Arterial Blood Oxygen Content 18.4 Vol % Arterial Blood Carboxyhemoglobin 0.4 % Arterial Blood Methemoglobin 1.1 % Blood Gas Hemoglobin 13.4 G/DL Oxygen Delivery Device VENTILATOR Blood Gas Ventilator Setting CPAP+5/PS5 Blood Gas Inspired Oxygen 40 % White Blood Count 17.3 TH/MM3 Red Blood Count 4.56 MIL/MM3 Hemoglobin 13.6 GM/DL Hematocrit 41.4 % Mean Corpuscular Volume 90.8 FL Mean Corpuscular Hemoglobin 29.7 PG Mean Corpuscular Hemoglobin Concent 32.7 % Red Cell Distribution Width 14.1 % Platelet Count 279 TH/MM3 Mean Platelet Volume 8.5 FL Blood Urea Nitrogen 10 MG/DL Creatinine 0.47 MG/DL Random Glucose 176 MG/DL Calcium Level 8.4 MG/DL Sodium Level 144 MEQ/L Potassium Level 3.5 MEQ/L Chloride Level 106 MEQ/L Carbon Dioxide Level 30.5 MEQ/L Anion Gap 8 MEQ/L Estimat Glomerular Filtration Rate 155 ML/MIN Imaging Last Impressions Chest CT 06/30/17 0000 Signed Impressions: Service Date/Time: Friday, June 30, 2017 21:39 - CONCLUSION: 1. Collapse of the left lower lobe with truncation of the lower lobe bronchus at its origin. This raises the possibility of either mucous plugging or a tumor obstructing the lower lobe bronchus. 2. 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 Job Jasmine MD Chest X-Ray 06/29/17 0500 Signed Impressions: Service Date/Time: Thursday, June 29, 2017 03:44 - CONCLUSION: Left base atelectasis/consolidation and/or effusion. Severo Harrell MD Objective Remarks GENERAL: Patient is 77yo lying in bed in NAD SKIN: Warm and dry. HEAD: Normocephalic. EYES: No scleral icterus. No injection or drainage. NECK: Supple, trachea midline. No JVD or lymphadenopathy. CARDIOVASCULAR: Regular rate and rhythm without murmurs, gallops, or rubs. RESPIRATORY: Breath sounds equal bilaterally. No accessory muscle use. GASTROINTESTINAL: Abdomen soft, non-tender, nondistended. MUSCULOSKELETAL: No cyanosis, or edema. Neuro: Awake and alert. A/P Assessment and Plan Neurologic: Acute Metabolic encephalopathy Alcohol dependence Awake and alert. Avoid sedatives Place on Thiamine/MVI/Folic acid Respiratory: Acute hypoxic and hypercarbic respiratory failure - improving. Community-acquired pneumonia - severe Continue with oxygen keep sat >92% Bronchodilators, IS. On Solumederol 40mg Q12 CT chest reviewed. Will consult pulmonary for possible need bronchoscopy Cardiovascular: Hypertension On Norvasc 10mg steve, Coreg 6.25mg BID, add Clonidine 0.1mg Q8 Monitor HR and BP keep MAP>65mmHg On Pravachol. Renal: Urinary Retention Monitor renal function, electrolytes replacement per protocol. GI Speech eval, diet per speech Heme/ID: Community acquired pneumonia Severe sepsis Continue Rocephin and azithromycin. Strep pneumonia and Legionella urinary Ag negative on 06/28 c. diff PCR negative. blood cultures 06/26 NGTD sputum culture from 06/28 NGTD Endocrine: Hyperglycemia of critical illness Thyroid mass- 3.3 cm left neck mass probably thyroid on CT chest -- SSI, medium scale, every 6 -Check US thyroid, TSH level. Prophylaxis: GI Prophylaxis Pepcid IV DVT Prophylaxis -- SCDs Subcutaneous heparin Lines: Peripheral IVs Level 3 Drake Monique MD Jul 01, 2017 10:29
[2017-07-01] MEDS ORDERED: oxyCODONE/ACETAMINOPHEN 5 MG/325 MG TAB PO ONE (10:45)
[2017-07-01] MEDS: methylPREDNISolone SOD SUCC 40 MG/1 ML VIAL IV PUSH SCH ×2 (11:05→23:11)
[2017-07-01] MEDS: cefTRIAXone INJ 1,000 MG in SODIUM CHLORIDE 0.9% INJ 100 ML IV SCH (11:05)
[2017-07-01] MEDS: MULTIVITAMIN TAB PO SCH (11:09)
[2017-07-01] MEDS: FOLIC ACID 1 MG TAB PO SCH (11:10)
[2017-07-01] MEDS: THIAMINE HCL 100 MG TAB PO SCH (11:10)
--- NOTE | 2017-07-01 11:11 | RADRPT ---
EXAM DATE/TIME: 07/01/2017 10:30 [facility] COMPARISON: No previous studies available for comparison. INDICATIONS : Thyroid mass. MEDICAL HISTORY : Hypertension. Cardiovascular disease SURGICAL HISTORY : Appendectomy. ENCOUNTER: Initial ACUITY: 1 day PAIN SCORE: 0/10 LOCATION: Bilateral neck MEASUREMENTS: RIGHT LOBE: 1.6 x 1.8 x 3.1 cm LEFT LOBE: 2.5 x 3.0 x cm FINDINGS: RIGHT LOBE: Heterogeneous echotexture without nodules or cysts. Vascularity is within normal limits. LEFT LOBE: Heterogeneous echotexture without cysts. There is an echogenic nodule in the mid gland measuring 3.2 x 3.0 cm across Vascularity is within normal limits. ISTHMUS: Normal in size without focal abnormality. CONCLUSION: Heterogeneous gland bilaterally. Echogenic area lower laterally on the left could be a large nodule m easuring 3.2 x 3.0 cm across. Tao Mcconnell MD on July 01, 2017 at 11:06 Board Certified Radiologist. This report was verified electronically.
[2017-07-01] MEDS: cloNIDine HCL 0.1 MG TAB PO SCH ×2 (13:34→20:17)
[2017-07-01] MEDS: AZITHROMYCIN INJ 500 MG in SODIUM CHLOR 0.9% 250 ML INJ 250 ML IV SCH (13:34)
[2017-07-01 14:22] LABS: FREE T3 1.8 PG/ML (2.18-3.98); FREE T4 1.18 NG/DL (0.76-1.46)
--- NOTE | 2017-07-01 14:28 | HHI.FPPN ---
Subjective Remarks Patient now extubated, on 2L nasal cannula. She is awake and alert this morning. CT chest is showing collapse of left lower lobe. Has elevated blood pressure this morning, clonidine added to regimen. (Dayton Belle MD R3) Objective Vitals Vital Signs Date Time Temp Pulse Resp B/P (MAP) Pulse Ox O2 Delivery O2 Flow Rate FiO2 07/01/17 14:00 87 07/01/17 14:00 87 29 161/80 (107) 07/01/17 13:00 65 20 138/64 (88) 100 07/01/17 12:00 98.2 76 21 146/67 (93) 100 07/01/17 12:00 76 07/01/17 11:00 80 21 151/71 (97) 100 07/01/17 10:00 79 07/01/17 10:00 79 23 152/69 (96) 100 07/01/17 09:00 75 25 153/72 (99) 100 07/01/17 08:55 100 Nasal Cannula 2.00 07/01/17 08:00 98.2 86 28 176/82 (113) 100 07/01/17 08:00 86 07/01/17 07:00 84 26 166/76 (106) 100 07/01/17 06:00 91 07/01/17 04:00 97.9 96 24 187/85 (119) 100 07/01/17 04:00 96 07/01/17 02:00 99 07/01/17 00:00 98.4 114 28 185/81 (115) 99 07/01/17 00:00 114 06/30/17 22:00 101 06/30/17 20:00 99.8 83 14 155/69 (97) 100 06/30/17 20:00 83 06/30/17 18:00 80 06/30/17 16:26 100 Nasal Cannula 4 06/30/17 16:26 100 Nasal Cannula 4.00 06/30/17 16:00 99.1 102 23 193/93 (126) 100 06/30/17 16:00 40 06/30/17 16:00 102 06/30/17 15:00 94 14 168/79 (108) 100 06/30/17 14:53 100 40 I/O 06/30/17 06/30/17 06/30/17 07/01/17 07/01/17/21/17 07:00 15:00 23:00 07:00 15:00 23:00 Intake Total 1956 ml 53 ml 720 ml Output Total 900 ml 1600 ml 1500 ml Balance 1056 ml 53 ml -880 ml -1500 ml IV Total 136 ml 53 ml 370 ml Tube Feeding 720 ml 350 ml Tube Irrigant 200 ml Other 900 ml Output Urine Total 900 ml 1600 ml 1500 ml # Bowel Movements 1 3 (Dayton Belle MD R3) Result Diagram: 07/01/1742607/01/17426 Objective Remarks General: Lying in bed, nasal cannula in place, on 2L, no acute distress, somewhat agitated and attempting to get out of bed Skin: No rashes or lesions HEENT: Normocephalic, no conjunctivitis, no nasal discharge, normal pharynx Neck: No JVD or lymphadenopathy CV: RRR, no murmurs, rubs, or gallops Lungs: 2L nasal cannula, diminished lung sounds in left lower base, no wheezing or rhonchi GI: soft, nontender abdomen, normal bowel sounds Ext: No swelling or tenderness of the calves (Dayton Belle MD R3) A/P Assessment and Plan 77-year-old -Cypriot female with a past medical history significant for hyperlipidemia, benign essential tremor, hypertension, and A. fib. Admitted for left lower lobe pneumonia. On 06/27/17 patient developed acute respiratory failure and is transferred to the ICU with mechanical ventilation. Extubated . Discharge Planning Transferred to ICU for acute respiratory failure, discharge pending medical improvement (Dayton Belle MD R3) Attending Attestation Patient seen and examined. Case reviewed and discussed with the resident DR Manfred Belle. Agree with plan of care as discussed with me and documented in the resident note. (Dre Buck MD) Problem List: (1) Acute respiratory failure ICD Codes: J96.00 - Acute respiratory failure, unspecified whether with hypoxia or hypercapnia Status: Resolved Plan: Patient developed acute respiratory failure on 06/27. Transferred to the ICU with intubation and mechanical ventilation. Now extubated 07/01, on 2L via nasal cannula. Has left lower lobe collapse on CT chest, likely mucous plug and atelectasis. * Critical care is on board. * See antibiotics below * Left lower lobe mucous plug versus tumor, will consult pulmonology for possible bronchoscopy for further evaluation. (2) CAP (community acquired pneumonia) ICD Codes: J18.9 - Pneumonia, unspecified organism Status: Acute Plan: Patient's physical exam and imaging are suggestive of community-acquired pneumonia. Initially with fever and leukocytosis, and with acute respiratory failure. Now with leukocytosis resolved and afebrile. Blood cultures negative to date. Flu A and B negative. Sputum cultures negative. Extubated 07/01. * Continue ceftriaxone 1 g IV every 12 hours * Continue azithromycin 500 mg IV every 24 hours * DuoNeb as needed shortness of breath (3) Thyroid mass ICD Codes: E07.9 - Disorder of thyroid, unspecified Status: Acute Plan: Thyroid mass- 3.3 cm left neck mass probably thyroid on CT chest. Thyroid ultrasound: 3x3.2 cm probable thyroid nodule lower left. TSH somewhat suppressed. - Check T3, T4. - Needs radionuclide scan. If functional nodule, may need methimazole and beta carlos versus radioiodine ablation. If non-functional, will need fine needle aspiration. (4) BENIGN HYPERTENSION Status: Chronic Plan: Patient with history of hypertension. * Continue amlodipine * Carvedilol restarted * Labetalol PRN * Clonidine 0.1 q8hrs (5) Tremor ICD Codes: R25.1 - Tremor Status: Chronic Plan: Patient with a history of benign essential tremors. * Propranolol on hold for bradycardia (6) Asthma ICD Codes: J45.909 - Asthma Status: Chronic Plan: Patient reports history of asthma. * See breathing treatments above * Continue Pulmicort * Received one day course of IV steroids (7) Alcohol abuse ICD Codes: F10.10 - Alcohol abuse Status: Chronic Plan: Patient reports drinking 6 beers every day. * Monitor for symptoms of withdrawal * Thiamine, folic acid, multivitamin (8) Nutrition, metabolism, and development symptoms ICD Codes: R63.8 - Other symptoms and signs concerning food and fluid intake Plan: Diet: Heart healthy Monitor electrolytes and replace accordingly, placed on ICU electrolyte protocol Fluids: PO DVT prophylaxis with heparin and SCDs (Dayton Belle MD R3) Problem Qualifiers (1) CAP (community acquired pneumonia): Qualified Codes: J18.1 - Lobar pneumonia, unspecified organism Dayton Belle MD R3 Jul 01, 2017 14:28 Dre Buck MD Jul 02, 2017 16:31
[2017-07-01] MEDS: oxyCODONE/ACETAMINOPHEN 5 MG/325 MG TAB PO PRN ×2 (20:00→20:17)
[2017-07-01] MEDS: guaiFENesin E.R. 600 MG TAB PO SCH ×2 (20:16→21:00)
[2017-07-01] MEDS: PRAVASTATIN SOD 80 MG TAB PO SCH ×2 (20:16→21:00)
[2017-07-01] MEDS: HALOPERIDOL LACTATE 5 MG/ML AMP IM PRN ×2 (20:34→21:36)
[2017-07-02] VITALS (14 sets, daily range): BP systolic 116–167; BP diastolic 56–86; PULSE 73–92; RESP 18–27; TEMP 98.1–98.7; O2SAT 90–97
[2017-07-02] MEDS: RESP: ALBUTEROL 2.5 MG/IPRATROPIUM 0.5 MG NEB (SCH) INH ×4 (03:44→22:00)
[2017-07-02] MEDS: CHLORHEXIDINE GLUCONATE 2 % 1 PACK (2 CLOTHS)(taper/protocol) TOPICAL SCH (04:00)
[2017-07-02] MEDS: RESP: ALBUTEROL 2.5 MG/3 ML NEB (SCH) NEB ×2 (04:00→20:38)
[2017-07-02] MEDS: oxyCODONE/ACETAMINOPHEN 5 MG/325 MG TAB PO PRN (04:19)
[2017-07-02] MEDS: cloNIDine HCL 0.1 MG TAB PO SCH ×3 (04:20→23:32)
[2017-07-02] MEDS: HEPARIN SODIUM - SQ 10,000 UNITS/ML VIAL SQ SCH ×3 (04:21→23:42)
[2017-07-02 05:44] LABS: AUTOMATED NEUTROPHIL # 9.7 TH/MM3 (1.8-7.7); BASOPHIL % 0.1 % (0.0-2.0); HEMATOCRIT 40.3 % (35.0-46.0); HEMOGLOBIN 13.9 GM/DL (11.6-15.3); LYMPHOCYTE # 0.6 TH/MM3 (1.0-4.8); MEAN CELL VOLUME 90.7 FL (80.0-100.0); MEAN CORPUSCULAR HEMOGLOBIN 31.2 PG (27.0-34.0); MEAN CORPUSCULAR HGB CONC 34.4 % (32.0-36.0); MEAN PLATELET VOLUME 9.1 FL (7.0-11.0); MONO % 3.2 % (0.0-8.0); MONOCYTE # 0.3 TH/MM3 (0-0.9); NEUT % 90.7 % (16.0-70.0); PLATELET COUNT 273 TH/MM3 (150-450); RED BLOOD COUNT 4.44 MIL/MM3 (4.00-5.30); RED CELL DISTRIBUTION WIDTH 13.9 % (11.6-17.2); WHITE BLOOD COUNT 10.7 TH/MM3 (4.0-11.0)
[2017-07-02 06:11] LABS: BICARBONATE 30.4 MEQ/L (21.0-32.0); CALCIUM 8.4 MG/DL (8.5-10.1); CREATININE 0.41 MG/DL (0.50-1.00); MAGNESIUM 2.6 MG/DL (1.5-2.5)
[2017-07-02 06:13] LABS: PHOSPHORUS 2.4 MG/DL (2.5-4.9)
[2017-07-02] MEDS: CHLORHEXIDINE 0.12% (ORAL KIT) 15 ML CUP MT SCH ×2 (08:00→19:26)
--- NOTE | 2017-07-02 08:37 | HHI.CCPN ---
Subjective Remarks/Hospital Course Hospital Course: This is a 77-year-old female who presented on 06/25 with shortness of breath, cough, fever and was found to have community-acquired pneumonia. She was started on IV antibiotics. She was doing well on nasal cannula when she had an acute decompensation this morning. Rapid response was called. She was noted to have an SPO2 of 70% on a nonrebreather. She was emergently transferred to the ICU. I evaluated her on immediate arrival to the ICU. I emergently intubated the patient, please see separate procedure for details. Of note, the patient did not have any IV access when she arrived to the ICU. I emergently placed right-sided EJ 18-gauge peripheral IV through which we induced anesthesia for intubation. Also of note, the patient wasn't unanticipated difficult airway with significant decreases in neck flexion and extension which was not noted due to the emergent nature of her intubation. This required mask ventilation GlideScope intubation. It was noted on the GlideScope that she had significant bloody secretions in the hypopharynx, less likely due to first laryngoscopy, but unclear what this is related to. She also had very edematous appearing cords. No additional information is available from the patient. The remainder of the history is obtained from medical record. subjective: 06/28: aeration improved on APRV mode of ventilation. wbc continues to downtrend. adequately sedated on fentanyl infusion. 06/29: CXR without improvement. again I ultrasounded her left lung field and there is less than 1.5 cm pocket of fluid down by the diaphragm, with good lung sliding both anteriorly and posteriorly throughout the left lung field. spoke with radiology and the white-out of the left lower lung field most likely represents densely consolidated pneumonia without effusion, particularly with minimal fluid in the plural space. after 24h of aggressive suction/lavage, minimal secretions coming out of ett. fio2 improving. wbc slightly uptrended. also, new diarrhea today which is copious: very early to consider c. diff as complication of abx, but unclear etiology. may be from tube feeds. 06/30: improving from a pulmonary standpoint. passed SBT. densely consolidated LLL persists: may need to obtain CT chest to rule out underlying mass. c. diff negative. 07/01 Patient was extubated yesterday on 2L oxygen, hypertensive. 07/02 No events overnight. Afebrile. On room air oxygen when seen. Objective Vital Signs Date Time Temp Pulse Resp B/P (MAP) Pulse Ox O2 Delivery O2 Flow Rate FiO2 07/02/17 06:00 73 07/02/17 04:00 98.7 27 167/77 (107) 91 07/01/17 21:15 21 07/01/17 08:55 Nasal Cannula 2.00 Intake and Output 07/02/17 07/02/17 07/03/17 08:00 16:00 00:00 Intake Total 60 ml Output Total 2175 ml Balance -2115 ml Result Diagram: 07/02/17 0356 07/02/17 0356 Other Results Laboratory Tests Test 07/02/17 03:56 White Blood Count 10.7 TH/MM3 Red Blood Count 4.44 MIL/MM3 Hemoglobin 13.9 GM/DL Hematocrit 40.3 % Mean Corpuscular Volume 90.7 FL Mean Corpuscular Hemoglobin 31.2 PG Mean Corpuscular Hemoglobin Concent 34.4 % Red Cell Distribution Width 13.9 % Platelet Count 273 TH/MM3 Mean Platelet Volume 9.1 FL Neutrophils (%) (Auto) 90.7 % Lymphocytes (%) (Auto) 6.0 % Monocytes (%) (Auto) 3.2 % Eosinophils (%) (Auto) 0.0 % Basophils (%) (Auto) 0.1 % Neutrophils # (Auto) 9.7 TH/MM3 Lymphocytes # (Auto) 0.6 TH/MM3 Monocytes # (Auto) 0.3 TH/MM3 Eosinophils # (Auto) 0.0 TH/MM3 Basophils # (Auto) 0.0 TH/MM3 CBC Comment DIFF FINAL Differential Comment Blood Urea Nitrogen 11 MG/DL Creatinine 0.41 MG/DL Random Glucose 164 MG/DL Calcium Level 8.4 MG/DL Phosphorus Level 2.4 MG/DL Magnesium Level 2.6 MG/DL Sodium Level 140 MEQ/L Potassium Level 3.7 MEQ/L Chloride Level 101 MEQ/L Carbon Dioxide Level 30.4 MEQ/L Anion Gap 9 MEQ/L Estimat Glomerular Filtration Rate 182 ML/MIN Imaging Last Impressions Thyroid Ultrasound 07/01/17 0000 Signed Impressions: Service Date/Time: June 10:30 - CONCLUSION: Heterogeneous gland bilaterally. Echogenic area lower laterally on the left could be a large nodule measuring 3.2 x 3.0 cm across. Tao Mcconnell MD Chest CT 06/30/17 0000 Signed Impressions: Service Date/Time: Friday, June 30, 2017 21:39 - CONCLUSION: 1. Collapse of the left lower lobe with truncation of the lower lobe bronchus at its origin. This raises the possibility of either mucous plugging or a tumor obstructing the lower lobe bronchus. 2. 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 Job Jasmine MD Chest X-Ray 06/29/17 0500 Signed Impressions: Service Date/Time: Thursday, June 29, 2017 03:44 - CONCLUSION: Left base atelectasis/consolidation and/or effusion. Severo Harrell MD Objective Remarks GENERAL: Patient is 77yo lying in bed in NAD SKIN: Warm and dry. HEAD: Normocephalic. EYES: No scleral icterus. No injection or drainage. NECK: Supple, trachea midline. No JVD or lymphadenopathy. CARDIOVASCULAR: Regular rate and rhythm without murmurs, gallops, or rubs. RESPIRATORY: Breath sounds equal bilaterally. No accessory muscle use. GASTROINTESTINAL: Abdomen soft, non-tender, nondistended. MUSCULOSKELETAL: No cyanosis, or edema. Neuro: Awake and alert. A/P Assessment and Plan Neurologic: Acute Metabolic encephalopathy Alcohol dependence Awake and alert. Avoid sedatives On Thiamine/MVI/Folic acid Respiratory: Acute hypoxic and hypercarbic respiratory failure - improving. Community-acquired pneumonia - severe Continue with oxygen keep sat >92% Bronchodilators, IS. On Solumederol 40mg Q12 CT chest reviewed. Pulmonary is consulted for possible need bronchoscopy Cardiovascular: Hypertension On Norvasc 10mg steve, Coreg 6.25mg BID, Clonidine 0.1mg Q8 Monitor HR and BP keep MAP>65mmHg On Pravachol. Renal: Urinary Retention Monitor renal function, electrolytes replacement per protocol. GI On PO diet Heme/ID: Community acquired pneumonia Severe sepsis Continue Rocephin and azithromycin. Strep pneumonia and Legionella urinary Ag negative on 06/28 c. diff PCR negative. blood cultures 06/26 NGTD sputum culture from 06/28 NGTD Endocrine: Hyperglycemia of critical illness Thyroid mass- 3.3 cm left neck mass probably thyroid on CT chest -- SSI, medium scale, every 6 -US thyroid: Heterogeneous gland bilaterally. Echogenic area lower laterally on the left could be a large nodule measuring 3.2 x 3.0 cm across. Further workup per primary team. ? need FNA of thyroid nodule. TSH level: 0.18, FT3: 1.80(L), FT4: 1.18 Prophylaxis: GI Prophylaxis Pepcid IV DVT Prophylaxis -- SCDs Subcutaneous heparin Lines: Peripheral IVs Will sign off and transfer to floor. Level 3 Drake Monique MD Jul 02, 2017 08:37
[2017-07-02] MEDS: NUTRISOURCE FIBER POWDER 1 PACK G-TUBE SCH ×2 (09:00→19:27)
[2017-07-02] MEDS: CARVEDILOL 6.25 MG TAB PO SCH ×2 (09:17→23:31)
[2017-07-02] MEDS: FOLIC ACID 1 MG TAB PO SCH (09:17)
[2017-07-02] MEDS: DOXAZOSIN MESYLATE 2 MG TAB PO SCH (09:17)
[2017-07-02] MEDS: THIAMINE HCL 100 MG TAB PO SCH (09:17)
[2017-07-02] MEDS: MULTIVITAMIN TAB PO SCH (09:17)
[2017-07-02] MEDS: guaiFENesin E.R. 600 MG TAB PO SCH ×2 (09:17→23:33)
[2017-07-02] MEDS: FAMOTIDINE 20 MG/2 ML VIAL IV PUSH SCH ×2 (09:20→23:26)
[2017-07-02] MEDS: SODIUM CHLORIDE 0.9% FLUSH 10 ML FLUSH IV FLUSH SCH ×2 (09:20→21:00)
--- NOTE | 2017-07-02 10:55 | HHI.FPPN ---
Subjective Remarks Patient lying in bed, awake and alert. She is on room air. She appears to be in no respiratory distress. She is talking to us. She says she wants to go home repeatedly. Explained to her that she is very sick and we'd like her to stay in the hospital. She is mildly confused. She does know she's in the hospital, she knows her name and date of . She knew she's in [facility] but with delayed response to that question. She doesn't know the year. She says no when asked if she's in pain. She had some delirium overnight. She can be easily redirected this morning. (Dayton Belle MD R3) Objective Vitals Vital Signs Date Time Temp Pulse Resp B/P (MAP) Pulse Ox O2 Delivery O2 Flow Rate FiO2 07/02/17 09:44 95 21 07/02/17 06:00 73 07/02/17 04:00 92 07/02/17 04:00 98.7 92 27 167/77 (107) 91 07/02/17 02:00 91 07/02/17 00:00 98.7 74 22 116/56 (76) 90 07/02/17 00:00 74 07/01/17 22:00 81 07/01/17 21:15 93 21 07/01/17 20:00 98.7 79 25 162/92 (115) 97 07/01/17 20:00 79 07/01/17 18:00 72 07/01/17 17:00 98.8 71 24 145/70 (95) 96 07/01/17 16:00 92 07/01/17 16:00 92 43 152/88 (109) 91 07/01/17 15:00 91 32 157/79 (105) 94 07/01/17 14:00 87 07/01/17 14:00 87 29 161/80 (107) 07/01/17 13:00 65 20 138/64 (88) 100 07/01/17 12:00 98.2 76 21 146/67 (93) 100 07/01/17 12:00 76 07/01/17 11:00 80 21 151/71 (97) 100 I/O 07/01/17 07/01/17 07/01/17 07/02/17 07/02/17 07/02/17 07:00 15:00 23:00 07:00 15:00 23:00 Intake Total 236 ml 60 ml Output Total 1500 ml 1700 ml 2175 ml Balance -1500 ml -1464 ml -2115 ml Intake Oral 236 ml 60 ml Output Urine Total 1500 ml 1700 ml 2175 ml # Bowel Movements 3 0 (Dayton Belle MD R3) Result Diagram: 07/02/17 0356 07/02/17 0356 Imaging Last 72 hours Impressions Thyroid Ultrasound 07/01/17 0000 Signed Impressions: Service Date/Time: June 10:30 - CONCLUSION: Heterogeneous gland bilaterally. Echogenic area lower laterally on the left could be a large nodule measuring 3.2 x 3.0 cm across. Tao Mcconnell MD Chest CT 06/30/17 0000 Signed Impressions: Service Date/Time: Friday, June 30, 2017 21:39 - CONCLUSION: 1. Collapse of the left lower lobe with truncation of the lower lobe bronchus at its origin. This raises the possibility of either mucous plugging or a tumor obstructing the lower lobe bronchus. 2. 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 Job Jasmine MD Objective Remarks General: Lying in bed, on room air, no distress, wants to go home Skin: No rashes or lesions HEENT: Normocephalic, no conjunctivitis, no nasal discharge, normal pharynx Neck: No JVD or lymphadenopathy CV: RRR, no murmurs, rubs, or gallops Lungs: On room air, left lower lobe with increased breath sounds compared to yesterday, crackles in the bases. No respiratory distress. GI: soft, nontender abdomen, normal bowel sounds Ext: No swelling or tenderness of the calves, chronic vascular changes (Dayton Belle MD R3) A/P Assessment and Plan 77-year-old -Citizen Of [place] female with a past medical history significant for hyperlipidemia, benign essential tremor, hypertension, and A. fib. Admitted for left lower lobe pneumonia. On 06/27/17 patient developed acute respiratory failure and is transferred to the ICU with mechanical ventilation. Extubated . 07/02 she is now on room air with some delirium and agitation. Transferred out of ICU on 07/02. Discharge Planning Transferred to ICU for acute respiratory failure, required intubation and mechanical ventilation. Extubated on 07/01, transferred out of ICU on 07/02. Discharge pending medical improvement and stability. (Dayton Belle MD R3) Attending Attestation Patient seen and examined. Case reviewed and discussed with the resident DR Manfred Belle. Agree with plan of care as discussed with me and documented in the resident note. (Dre Buck MD) Problem List: (1) Acute respiratory failure ICD Codes: J96.00 - Acute respiratory failure, unspecified whether with hypoxia or hypercapnia Status: Resolved Plan: Patient developed acute respiratory failure on 06/27. Transferred to the ICU with intubation and mechanical ventilation. Now extubated 07/01. On room air and being transferred out of ICU on 07/02. Has left lower lobe collapse on CT chest, likely mucous plug and atelectasis. * See antibiotics below * Pulse oximetry, oxygen supplementation as needed. * Left lower lobe mucous plug versus tumor, will consult pulmonology for possible bronchoscopy for further evaluation. * Acapella, EZ Pap, incentive spirometry (2) CAP (community acquired pneumonia) ICD Codes: J18.9 - Pneumonia, unspecified organism Status: Acute Plan: Patient's physical exam and imaging are suggestive of community-acquired pneumonia. Initially with fever and leukocytosis, and with acute respiratory failure. Now with leukocytosis resolved and afebrile. Blood cultures negative to date. Flu A and B negative. Sputum cultures negative. Extubated 07/01. Room air on 07/02. * Continue ceftriaxone 1 g IV every 12 hours * Continue azithromycin 500 mg IV every 24 hours * DuoNeb as needed shortness of breath * EZ Pap, Acapella, incentive spirometer. (3) Thyroid mass ICD Codes: E07.9 - Disorder of thyroid, unspecified Status: Acute Plan: Thyroid mass- 3.3 cm left neck mass probably thyroid on CT chest. Thyroid ultrasound: 3x3.2 cm probable thyroid nodule lower left. TSH somewhat suppressed. T4 normal. - Given critical status, reliability of thyroid function tests is poor. - Needs radionuclide scan. If functional nodule, may need methimazole and beta carlos versus radioiodine ablation. If non-functional, will need fine needle aspiration. Will pursue further as an outpatient. (4) BENIGN HYPERTENSION Status: Chronic Plan: Patient with history of hypertension. * Continue amlodipine * Carvedilol restarted * Labetalol PRN * Clonidine 0.1 q8hrs (5) Tremor ICD Codes: R25.1 - Tremor Status: Chronic Plan: Patient with a history of benign essential tremors. * Propranolol on hold for bradycardia (6) Asthma ICD Codes: J45.909 - Asthma Status: Chronic Plan: Patient reports history of asthma. * See breathing treatments above * Continue Pulmicort * Received one day course of IV steroids (7) Alcohol abuse ICD Codes: F10.10 - Alcohol abuse Status: Chronic Plan: Patient reports drinking 6 beers every day. * Monitor for symptoms of withdrawal * Thiamine, folic acid, multivitamin (8) Nutrition, metabolism, and development symptoms ICD Codes: R63.8 - Other symptoms and signs concerning food and fluid intake Plan: Diet: Heart healthy Monitor electrolytes and replace accordingly Fluids: PO DVT prophylaxis with heparin and SCDs (Dayton Belle MD R3) Problem Qualifiers (1) CAP (community acquired pneumonia): Qualified Codes: J18.1 - Lobar pneumonia, unspecified organism Dayton Belle MD R3 Jul 02, 2017 10:55 Dre Buck MD Jul 02, 2017 16:35
--- NOTE | 2017-07-02 11:38 | MB ---
cc: [facility] DATE OF CONSULTATION: 07/02/2017 REASON FOR CONSULTATION: Pneumonia, question endobronchial obstruction. HISTORY OF PRESENT ILLNESS The patient is a 77-year-old female admitted with fever, cough and lung infiltrate, hospitalized for community-acquired pneumonia. The patient developed acute respiratory failure requiring intubation, mechanical ventilation, presently extubated in no distress on O2 via nasal cannula. PAST MEDICAL HISTORY: 1. Past medical history is that of chronic obstructive pulmonary disease and/or Bronchial asthma. 2. Hypertension 3. Essential tremor previous ablation for atrial fibrillation. 4. Hernia repair 5. Cataract surgery MEDICATIONS medications at home include 1. Pulmicort. 2. Ventolin 3. Isosorbide. 4. Carvedilol. 5. Naprosyn. 6. Lasix. 7. Simvastatin. 8. Fioricet 9. Placed on antibiotic therapy upon hospitalization for pneumonia. ALLERGIES PROPRANOLOL LISINOPRIL SOCIAL HISTORY Does not smoke, drinks beer daily. FAMILY HISTORY Positive for a mother of breast cancer, otherwise unremarkable. PHYSICAL EXAMINATION: IN GENERAL: on exam the patient is alert. VITAL SIGNS: Temperature 98, pulse 70, respirations 818, blood pressure 113/64. HEAD, EYES, EARS, NOSE, AND THROAT: Exam unremarkable. Eyes without icterus. NECK: Neck: Without adenopathy or thyroid enlargement. Central trachea. CHEST: Few scattered rhonchi at base. CARDIAC: Cardiac examination is not appreciated. service audible, no murmur or rub. ABDOMEN: Obese lax bowel sounds audible. EXTREMITIES: Extremities: No clubbing, cyanosis or edema. LABORATORY DATA White count 17,000, hemoglobin 13, hematocrit 41, platelets 279,000, sodium 144, potassium 3.5, BUN 10, creatinine 0.4. Arterial blood gas June 30 pH 740, pCO2 47 point, pO2 121 and 40% on BiPap therapy, presently 94% sat on O2 nasal cannula. CT scan of the chest with collapse of the left lower lung lobe, question of mucous plug or endobronchial obstruction 3.3 cm left neck mass deviating trachea. Ultrasound of the thyroid, left lower mass 2 x 3 cm. IMPRESSION 1. Pneumonia improving 2. Respiratory failure off ventilatory support. 3. Bronchial asthma 4. Atrial fibrillation post ablation. 5. Thyroid mass. 6. Hypertension controlled. PLAN The patient is clinically improving at present would continue oxygen therapy. Antibiotic therapy follow chest x-ray if it fails to resolve bronchoscopy would be undertaken. The thyroid mass needs to be addressed as well, and will need further workup. I do thank you for asking me to partake in Mrs. Watts's care. Sincerely, Gee Flynn MD WWW/ /6:35 PM /10:15 AM
[2017-07-02] MEDS: INSULIN NovoLIN REGULAR SUPPLEMENTAL SCALE SQ SCH ×4 (12:00→23:44)
[2017-07-02] MEDS: methylPREDNISolone SOD SUCC 40 MG/1 ML VIAL IV PUSH SCH ×2 (12:33→23:42)
[2017-07-02] MEDS: cefTRIAXone INJ 1,000 MG in SODIUM CHLORIDE 0.9% INJ 100 ML IV SCH (12:34)
[2017-07-02] MEDS: AZITHROMYCIN INJ 500 MG in SODIUM CHLOR 0.9% 250 ML INJ 250 ML IV SCH (14:17)
--- NOTE | 2017-07-02 16:06 | HHI.PR ---
Subjective Remarks ALERT NO SOB Objective GENERAL: SKIN: Warm and dry. HEAD: Atraumatic. Normocephalic. EYES: Pupils equal and round. No scleral icterus. No injection or drainage. ENT: No nasal bleeding or discharge. Mucous membranes pink and moist. NECK: Trachea midline. No JVD. CARDIOVASCULAR: Regular rate and rhythm. RESPIRATORY: No accessory muscle use. Clear to auscultation. Breath sounds equal bilaterally. GASTROINTESTINAL: Abdomen soft, non-tender, nondistended. Hepatic and splenic margins not palpable. MUSCULOSKELETAL: Extremities without clubbing, cyanosis, or edema. No obvious deformities. NEUROLOGICAL: Awake and alert. No obvious cranial nerve deficits. Motor grossly within normal limits. Five out of 5 muscle strength in the arms and legs. Normal speech. PSYCHIATRIC: Appropriate mood and affect; insight and judgment normal. Vital Signs Date Time Temp Pulse Resp B/P (MAP) Pulse Ox O2 Delivery O2 Flow Rate FiO2 07/02/17 14:00 75 07/02/17 12:00 74 07/02/17 12:00 98.2 74 23 151/72 (98) 97 07/02/17 10:00 81 07/02/17 09:44 95 21 07/02/17 08:00 98.1 77 24 154/65 (94) 93 07/02/17 08:00 73 07/02/17 06:00 73 07/02/17 04:00 92 07/02/17 04:00 98.7 92 27 167/77 (107) 91 07/02/17 02:00 91 07/02/17 00:00 98.7 74 22 116/56 (76) 90 07/02/17 00:00 74 07/01/17 22:00 81 07/01/17 21:15 93 21 07/01/17 20:00 98.7 79 25 162/92 (115) 97 07/01/17 20:00 79 07/01/17 18:00 72 07/01/17 17:00 98.8 71 24 145/70 (95) 96 I/O 07/01/17 07/01/17 07/01/17 07/02/17 07/02/17 07/02/17 07:00 15:00 23:00 07:00 15:00 23:00 Intake Total 236 ml 60 ml Output Total 1500 ml 1700 ml 2175 ml Balance -1500 ml -1464 ml -2115 ml Intake Oral 236 ml 60 ml Output Urine Total 1500 ml 1700 ml 2175 ml # Bowel Movements 3 0 Result Diagram: 07/02/17 0356 07/02/176 Objective Remarks Vital Signs Date Time Temp Pulse Resp B/P (MAP) Pulse Ox O2 Delivery O2 Flow Rate FiO2 07/02/17 14:00 75 07/02/17 12:00 74 07/02/17 12:00 98.2 74 23 151/72 (98) 97 07/02/17 10:00 81 07/02/17 09:44 95 21 07/02/17 08:00 98.1 77 24 154/65 (94) 93 07/02/17 08:00 73 07/02/17 06:00 73 07/02/17 04:00 92 07/02/17 04:00 98.7 92 27 167/77 (107) 91 07/02/17 02:00 91 07/02/17 00:00 98.7 74 22 116/56 (76) 90 07/02/17 00:00 74 07/01/17 22:00 81 07/01/17 21:15 93 21 07/01/17 20:00 98.7 79 25 162/92 (115) 97 07/01/17 20:00 79 07/01/17 18:00 72 07/01/17 17:00 98.8 71 24 145/70 (95) 96 Assessment and Plan Assessment and Plan PNEUMONIA ? ENDOBRONCHIAL PLUG OR MASS PLAN CONTINUE ANTIBIOTIC THERAPY F/U CXRAY BRONCHOSCOPY IF NEEDED Gee Flynn MD Jul 02, 2017 16:06
[2017-07-02 17:01] LABS: HEMATOCRIT 39.5 % (35.0-46.0); HEMOGLOBIN 13.4 GM/DL (11.6-15.3); MEAN CELL VOLUME 90.5 FL (80.0-100.0); MEAN CORPUSCULAR HEMOGLOBIN 30.6 PG (27.0-34.0); MEAN CORPUSCULAR HGB CONC 33.9 % (32.0-36.0); MEAN PLATELET VOLUME 8.6 FL (7.0-11.0); PLATELET COUNT 278 TH/MM3 (150-450); RED BLOOD COUNT 4.36 MIL/MM3 (4.00-5.30); WHITE BLOOD COUNT 8.7 TH/MM3 (4.0-11.0)
[2017-07-02 17:40] LABS: BICARBONATE 30.7 MEQ/L (21.0-32.0); CALCIUM 8.1 MG/DL (8.5-10.1); CREATININE 0.37 MG/DL (0.50-1.00)
[2017-07-02] MEDS: PRAVASTATIN SOD 80 MG TAB PO SCH (23:31)
[2017-07-03] VITALS (9 sets, daily range): BP systolic 134–152; BP diastolic 63–79; PULSE 63–88; RESP 18–20; TEMP 97–98.1; O2SAT 95–99
[2017-07-03] MEDS: RESP: ALBUTEROL 2.5 MG/3 ML NEB (SCH) NEB ×2 (03:59→04:00)
[2017-07-03] MEDS: RESP: ALBUTEROL 2.5 MG/IPRATROPIUM 0.5 MG NEB (SCH) INH ×2 (04:00→09:38)
[2017-07-03 04:34] LABS: HEMATOCRIT 39.6 % (35.0-46.0); HEMOGLOBIN 13.6 GM/DL (11.6-15.3); MEAN CELL VOLUME 89.9 FL (80.0-100.0); MEAN CORPUSCULAR HEMOGLOBIN 30.8 PG (27.0-34.0); MEAN CORPUSCULAR HGB CONC 34.3 % (32.0-36.0); MEAN PLATELET VOLUME 8.6 FL (7.0-11.0); PLATELET COUNT 280 TH/MM3 (150-450); RED BLOOD COUNT 4.41 MIL/MM3 (4.00-5.30); RED CELL DISTRIBUTION WIDTH 13.9 % (11.6-17.2); WHITE BLOOD COUNT 7.5 TH/MM3 (4.0-11.0)
[2017-07-03 04:58] LABS: BICARBONATE 27.6 MEQ/L (21.0-32.0); CALCIUM 8.1 MG/DL (8.5-10.1); CREATININE 0.47 MG/DL (0.50-1.00)
[2017-07-03] MEDS: INSULIN NovoLIN REGULAR SUPPLEMENTAL SCALE SQ SCH ×3 (06:00→18:00)
[2017-07-03] MEDS: cloNIDine HCL 0.1 MG TAB PO SCH ×3 (06:33→22:47)
[2017-07-03] MEDS: HEPARIN SODIUM - SQ 10,000 UNITS/ML VIAL SQ SCH ×3 (06:34→22:46)
--- NOTE | 2017-07-03 06:38 | RADRPT ---
EXAM DATE/TIME: 07/03/2017 05:42 [facility] COMPARISON: CHEST SINGLE AP, June 29, 2017, 3:44. INDICATIONS : Pneumonia. Short of breath. MEDICAL HISTORY : None. SURGICAL HISTORY : None. ENCOUNTER: Subsequent ACUITY: 4 - 6 days PAIN SCORE: 4/10 LOCATION: Bilateral chest FINDINGS: There has been interval extubation and removal of nasogastric tube. Left base consolidation and effus ion with mild perihilar parenchymal opacity persists. Accounting for rotation, cardiac contours are g rossly stable. CONCLUSION: Interval extubation. Persistent pleuroparenchymal opacity primarily on the left Severo Power MD on July 03, 2017 at 6:35 Board Certified Radiologist. This report was verified electronically.
[2017-07-03] MEDS: CHLORHEXIDINE 0.12% (ORAL KIT) 15 ML CUP MT SCH ×2 (08:00→20:00)
[2017-07-03] MEDS: BUDESONIDE INH SCH ×2 (09:00→21:00)
[2017-07-03] MEDS: THIAMINE HCL 100 MG TAB PO SCH (09:05)
[2017-07-03] MEDS: methylPREDNISolone SOD SUCC 125 MG/2 ML VIAL IV PUSH SCH (09:05)
[2017-07-03] MEDS: FOLIC ACID 1 MG TAB PO SCH (09:05)
[2017-07-03] MEDS: MULTIVITAMIN TAB PO SCH (09:05)
[2017-07-03] MEDS: guaiFENesin E.R. 600 MG TAB PO SCH ×2 (09:05→21:09)
[2017-07-03] MEDS: CARVEDILOL 6.25 MG TAB PO SCH ×2 (09:06→21:09)
[2017-07-03] MEDS: FAMOTIDINE 20 MG/2 ML VIAL IV PUSH SCH ×2 (09:06→22:46)
[2017-07-03] MEDS: SODIUM CHLORIDE 0.9% FLUSH 10 ML FLUSH IV FLUSH SCH ×2 (09:06→21:14)
[2017-07-03] MEDS ORDERED: RESP: ALBUTEROL 2.5 MG/3 ML NEB (SCH) NEB (10:00)
--- NOTE | 2017-07-03 10:42 | HHI.FPPN ---
Subjective Remarks Patient seen this morning. She is now out of the ICU and on a regular medical floor. Her son is by the bedside. She is doing much better this morning. She is lying in bed, in no distress. She continues to ask if she can go home. Her son states that she is almost back to her baseline. At her baseline she is able to get around the house, but does not get out of the house much. She gets tired when ambulating at home. She has mild memory problems at baseline. This morning , she is oriented to place and situation. She says it is 2018, and she knew the month after much deliberation about it. She has some coughing with sputum production overnight. No respiratory difficulties. No abdominal pain, nausea, vomiting. There was some scant blood noted after removal of the Porter catheter yesterday. Will order a Hemoccult to rule out the GI tract as the source of bleeding. No bleeding noted since. (Dayton Belle MD R3) Objective Vitals Vital Signs Date Time Temp Pulse Resp B/P (MAP) Pulse Ox O2 Delivery O2 Flow Rate FiO2 07/03/17 08:24 98.1 73 20 147/79 (101) 99 07/03/17 05:50 97.0 69 20 152/76 (101) 95 07/03/17 05:32 63 07/03/17 01:28 88 07/03/17 00:15 98.1 66 19 150/68 (95) 95 07/02/17 21:30 98.6 78 18 153/73 (99) 94 07/02/17 20:38 95 07/02/17 20:00 76 07/02/17 16:56 98.2 74 20 155/79 (104) 97 07/02/17 16:00 98.6 74 20 146/86 (106) 96 07/02/17 16:00 74 07/02/17 14:00 75 07/02/17 12:00 74 07/02/17 12:00 98.2 74 23 151/72 (98) 97 I/O 07/02/17 07/02/17 07/02/17 07/03/17 07/03/17 07/03/17 07:00 15:00 23:00 07:00 15:00 23:00 Intake Total 60 ml 200 ml 650 ml Output Total 2175 ml 600 ml Balance -2115 ml -600 ml 200 ml 650 ml Intake Oral 60 ml 200 ml 650 ml Output Urine Total 2175 ml 600 ml # Voids 1 4 1 # Bowel Movements 0 0 0 (Dayton Belle MD R3) Result Diagram: 07/03/1741407/03/17414 Imaging Last 72 hours Impressions Chest X-Ray 07/03/17 0000 Signed Impressions: Service Date/Time: Monday, July 03, 2017 05:42 - CONCLUSION: Interval extubation. Persistent pleuroparenchymal opacity primarily on the left Severo Power MD Thyroid Ultrasound 07/01/17 0000 Signed Impressions: Service Date/Time: June 10:30 - CONCLUSION: Heterogeneous gland bilaterally. Echogenic area lower laterally on the left could be a large nodule measuring 3.2 x 3.0 cm across. Tao Mcconnell MD Objective Remarks General: Lying in bed, on room air, no distress, continues to state she wants to go home, appearing better than before Skin: No rashes or lesions, chronic venous changes on legs, dry skin on legs HEENT: Normocephalic, no conjunctivitis, no nasal discharge, normal pharynx Neck: No JVD or lymphadenopathy CV: RRR, no murmurs, rubs, or gallops Lungs: On room air, no respiratory distress. Diminished breath sounds in left lower lung. Otherwise lungs are clear to auscultation. GI: soft, nontender abdomen, normal bowel sounds Ext: No swelling or tenderness of the calves, chronic vascular changes (Dayton Belle MD R3) A/P Assessment and Plan 77-year-old -[place] female with a past medical history significant for hyperlipidemia, benign essential tremor, hypertension, and A. fib. Admitted for left lower lobe pneumonia. On 06/27/17 patient developed acute respiratory failure and was transferred to the ICU with mechanical ventilation. Extubated . 07/02 she is now on room air with some delirium and agitation. Transferred out of ICU on 07/02. Discharge Planning Transferred to ICU for acute respiratory failure, required intubation and mechanical ventilation. Extubated on 07/01, transferred out of ICU on 07/02. Discharge pending medical improvement and stability. (Dayton Belle MD R3) Attending Attestation Patient seen and examined. Case reviewed and discussed with the resident team. Agree with plan of care as discussed with me and documented in the resident note. she has a wonderfully supportive family who are helping her and will continue to help her at home (Dunia Ryan MD) Problem List: (1) Acute respiratory failure ICD Codes: J96.00 - Acute respiratory failure, unspecified whether with hypoxia or hypercapnia Status: Resolved Plan: Patient developed acute respiratory failure on 06/27. Transferred to the ICU with intubation and mechanical ventilation. Now extubated 07/01. On room air and being transferred out of ICU on 07/02. Has left lower lobe collapse on CT chest, likely mucous plug and atelectasis. * See antibiotics below * Pulse oximetry, oxygen supplementation as needed. * Left lower lobe mucous plug versus tumor, pulmonology on board for possible bronchoscopy for further evaluation. * Encourage aggressive incentive spirometry. (2) CAP (community acquired pneumonia) ICD Codes: J18.9 - Pneumonia, unspecified organism Status: Acute Plan: Patient's physical exam and imaging are suggestive of community-acquired pneumonia. Initially with fever and leukocytosis, and with acute respiratory failure. Now with leukocytosis resolved and afebrile. Blood cultures negative to date. Flu A and B negative. Sputum cultures negative. Extubated 07/01. Room air on 07/02. * Continue ceftriaxone 1 g IV every 12 hours, started 06/26 * Continue azithromycin 500 mg IV every 24 hours, started 06/26 * DuoNeb as needed shortness of breath * Incentive spirometry (3) Thyroid mass ICD Codes: E07.9 - Disorder of thyroid, unspecified Status: Acute Plan: Thyroid mass- 3.3 cm left neck mass probably thyroid on CT chest. Thyroid ultrasound: 3x3.2 cm probable thyroid nodule lower left. TSH somewhat suppressed. T4 normal. - Given critical status, reliability of thyroid function tests is poor. - Needs radionuclide scan. If functional nodule, may need methimazole and beta carlos versus radioiodine ablation. If non-functional, will need fine needle aspiration. Will pursue further as an outpatient. (4) BENIGN HYPERTENSION Status: Chronic Plan: Patient with history of hypertension. * Continue amlodipine 10 mg daily * Continue carvedilol 6.25 mg bid * Clonidine 0.1 q8hrs (5) Asthma ICD Codes: J45.909 - Asthma Status: Chronic Plan: Patient reports history of asthma. * See breathing treatments above * Continue Pulmicort * Received one day course of IV steroids (6) Alcohol abuse ICD Codes: F10.10 - Alcohol abuse Status: Chronic Plan: Patient reports drinking 6 beers every day. * Monitor for symptoms of withdrawal * Thiamine, folic acid, multivitamin (7) Nutrition, metabolism, and development symptoms ICD Codes: R63.8 - Other symptoms and signs concerning food and fluid intake Status: Acute Plan: Diet: Heart healthy, pureed Monitor electrolytes and replace accordingly Fluids: PO DVT prophylaxis with heparin and SCDs (Dayton Belle MD R3) Problem Qualifiers (1) Acute respiratory failure: Qualified Codes: J96.01 - Acute respiratory failure with hypoxia (2) CAP (community acquired pneumonia): Qualified Codes: J18.1 - Lobar pneumonia, unspecified organism (3) Asthma: Dayton Belle MD R3 Jul 03, 2017 10:41 Dunia Ryan MD Jul 07, 2017 11:23
[2017-07-03] MEDS: cefTRIAXone INJ 1,000 MG in SODIUM CHLORIDE 0.9% INJ 100 ML IV SCH (11:00)
[2017-07-03] MEDS: AZITHROMYCIN INJ 500 MG in SODIUM CHLOR 0.9% 250 ML INJ 250 ML IV SCH (13:00)
--- NOTE | 2017-07-03 17:56 | HHI.PR ---
Subjective Remarks 77 YOAA female with left basal opacity, atelactesis weaned to RA Denies sob Anxious to go home Family at [place] [employer] [place] , walks in the room Objective Vital Signs Vital Signs Date Time Temp Pulse Resp B/P (MAP) Pulse Ox O2 Delivery O2 Flow Rate FiO2 07/03/17 15:25 98.1 79 20 150/70 (96) 97 07/03/17 12:02 97.0 64 20 141/70 (93) 96 07/03/17 08:24 98.1 73 20 147/79 (101) 99 07/03/17 05:50 97.0 69 20 152/76 (101) 95 07/03/17 05:32 63 07/03/17 01:28 88 07/03/17 00:15 98.1 66 19 150/68 (95) 95 07/02/17 21:30 98.6 78 18 153/73 (99) 94 07/02/17 20:38 95 07/02/17 20:00 76 I/O 07/02/17 07/02/17 07/02/17 07/03/17 07/03/17 07/03/17 07:00 15:00 23:00 07:00 15:00 23:00 Intake Total 60 ml 200 ml 650 ml Output Total 2175 ml 600 ml Balance -2115 ml -600 ml 200 ml 650 ml Intake Oral 60 ml 200 ml 650 ml Output Urine Total 2175 ml 600 ml # Voids 1 4 1 3 # Bowel Movements 0 0 0 Result Diagram: 07/03/1741407/03/17414 Objective Remarks GENERAL: Obese female, NAD SKIN: Warm and dry. HEAD: Normocephalic. EYES: No scleral icterus. No injection or drainage. NECK: Supple, trachea midline. No JVD or lymphadenopathy. CARDIOVASCULAR: Regular rate and rhythm without murmurs, gallops, or rubs. RESPIRATORY: Breath sounds equal bilaterally. No accessory muscle use. GASTROINTESTINAL: Abdomen soft, non-tender, nondistended. MUSCULOSKELETAL: No cyanosis, or edema. BACK: Nontender without obvious deformity. No CVA tenderness. A/P Assessment and Plan LLL infilt/ atelactesis Mass not ruled out Obesity HTN PLAN: Aerosol nebs Cont Abx Mucinex 1200 mg bid Encourage to use Acapella, IS Will need rpt CT as out pt to document clearing of left density Arturo Butt MD Jul 03, 2017 17:56
[2017-07-03] MEDS: PRAVASTATIN SOD 80 MG TAB PO SCH (21:09)
--- NOTE | 2017-07-03 21:44 | HHI.FPPN ---
Addendum to progress note ADDENDUM Reason for addendum: Additonal documentation Additional information Subjective: Received page that patient fell and was found on the floor. They checked her out and she was fine with no injuries or bruises. We went to see the patient who stated that she was doing well and only reported pain in her left thigh, which she stated is very mild. She requested rubbing alcohol for the pain. Objective: GEN: Elderly AAF lying in bed in NAD CV: RRR MSK: Mildly TTP on right femur. Able to move extremity without pain Assessment: 77F with mild right thigh pain after a fall Plan -L femur x-ray -Miguel A Vaughn for muscle pain -Continue fall precautions Landy Swan MD R2 Jul 03, 2017 21:44
[2017-07-03] MEDS ORDERED: MENTHOL/METHYL SALICYLATE OINT 30 GM TUBE TOPICAL PRN (21:45)
--- NOTE | 2017-07-03 22:40 | RADRPT ---
EXAM DATE/TIME: 07/03/2017 22:03 [facility] COMPARISON: No previous studies available for comparison. INDICATIONS : Left femur pain after fall out of bed today. MEDICAL HISTORY : Hypertension. Cardiovascular disease. SURGICAL HISTORY : Appendectomy. ENCOUNTER: Initial ACUITY: 1 day PAIN SCORE: 8/10 LOCATION: Left femur. FINDINGS: 4 views of the left femur. Bone alignment within normal limits. No evidence of fracture. CONCLUSION: No evidence of fracture. Parish Byrne MD on July 03, 2017 at 22:37 Board Certified Radiologist. This report was verified electronically.
[2017-07-03] MEDS: oxyCODONE/ACETAMINOPHEN 5 MG/325 MG TAB PO PRN (22:46)
[2017-07-04] VITALS (7 sets, daily range): BP systolic 141–185; BP diastolic 63–84; PULSE 64–81; RESP 18–20; TEMP 97.4–98.9; O2SAT 94–98
[2017-07-04] MEDS: INSULIN NovoLIN REGULAR SUPPLEMENTAL SCALE SQ SCH ×4 (00:17→18:00)
[2017-07-04] MEDS ORDERED: hydrALAZINE HCL 10 MG TAB PO PRN (00:30)
[2017-07-04 05:26] LABS: BICARBONATE 28.8 MEQ/L (21.0-32.0); CALCIUM 8.1 MG/DL (8.5-10.1); CREATININE 0.49 MG/DL (0.50-1.00); HEMATOCRIT 39.6 % (35.0-46.0); HEMOGLOBIN 13.5 GM/DL (11.6-15.3); MEAN CELL VOLUME 89.6 FL (80.0-100.0); MEAN CORPUSCULAR HEMOGLOBIN 30.5 PG (27.0-34.0); MEAN CORPUSCULAR HGB CONC 34.1 % (32.0-36.0); MEAN PLATELET VOLUME 8.6 FL (7.0-11.0); PLATELET COUNT 265 TH/MM3 (150-450); RED BLOOD COUNT 4.42 MIL/MM3 (4.00-5.30); RED CELL DISTRIBUTION WIDTH 13.6 % (11.6-17.2); WHITE BLOOD COUNT 11.1 TH/MM3 (4.0-11.0)
[2017-07-04] MEDS: cloNIDine HCL 0.1 MG TAB PO SCH ×3 (06:36→21:26)
[2017-07-04] MEDS: HEPARIN SODIUM - SQ 10,000 UNITS/ML VIAL SQ SCH ×3 (06:37→21:36)
[2017-07-04] MEDS: CHLORHEXIDINE 0.12% (ORAL KIT) 15 ML CUP MT SCH ×2 (08:00→20:00)
[2017-07-04] MEDS: SODIUM CHLORIDE 0.9% FLUSH 10 ML FLUSH IV FLUSH SCH ×2 (09:00→21:27)
[2017-07-04] MEDS: BUDESONIDE INH SCH ×2 (09:00→21:00)
[2017-07-04] MEDS ORDERED: POTASSIUM CHLORIDE 10 MEQ CONTROLLED RELEASE TAB PO ONE ×2 (09:45→14:00)
[2017-07-04] MEDS: cefTRIAXone INJ 1,000 MG in SODIUM CHLORIDE 0.9% INJ 100 ML IV SCH (10:02)
[2017-07-04] MEDS: FAMOTIDINE 20 MG/2 ML VIAL IV PUSH SCH ×2 (10:04→21:26)
[2017-07-04] MEDS: methylPREDNISolone SOD SUCC 125 MG/2 ML VIAL IV PUSH SCH (10:04)
[2017-07-04] MEDS: CARVEDILOL 6.25 MG TAB PO SCH ×2 (10:04→21:26)
[2017-07-04] MEDS: MULTIVITAMIN TAB PO SCH (10:04)
[2017-07-04] MEDS: FOLIC ACID 1 MG TAB PO SCH (10:05)
[2017-07-04] MEDS: THIAMINE HCL 100 MG TAB PO SCH (10:05)
[2017-07-04] MEDS: guaiFENesin E.R. 600 MG TAB PO SCH ×2 (10:05→21:26)
--- NOTE | 2017-07-04 12:54 | HHI.FPPN ---
Subjective Remarks Ms Watts wants to go home as soon as she can but is willing to wait if it will help her to stay healthy. She was in the room with many family members including at least 2 daughters, 2 or more grandchildren and several great grandchildren. Ms Watts reported feeling well today. She hates her pureed diet and has been eating grapes and evelio crackers without any problems as well as other outside food per her family. Per family she has never had any problems eating "normal food". Speech had evaluated her after her entubation and recommended pureed but Ms Watts' family advanced her to her regular diet so I will change it in the chart. Will also per request order a walker and get her out of bed more as well as PT. She will be taken home by her large and engaged family so will need to see what requirements she will have at home. Objective Vitals Vital Signs Date Time Temp Pulse Resp B/P (MAP) Pulse Ox O2 Delivery O2 Flow Rate FiO2 07/04/17 12:16 97.4 68 20 141/72 (95) 96 07/04/17 07:43 98.0 66 20 158/71 (100) 94 07/04/17 05:25 97.7 69 18 149/75 (99) 98 07/04/17 01:04 97.6 73 18 185/84 (117) 96 07/03/17 20:21 97.2 79 18 134/63 (86) 95 07/03/17 15:25 98.1 79 20 150/70 (96) 97 I/O 07/03/17 07/03/17 07/03/17 07/04/17 07/04/17 07/04/17 07:00 15:00 23:00 07:00 15:00 23:00 Intake Total 650 ml Balance 650 ml Intake Oral 650 ml # Voids 4 1 3 2 2 # Bowel Movements 0 Result Diagram: 07/04/1744907/04/17 0450 Objective Remarks General: Lying in bed, on room air, no distress, continues to state she wants to go home, appearing better than before. very slight abdominal breathing Skin: No rashes or lesions, discoloration changes on legs, dry skin on legs which was fungal infection now healing per family HEENT: Normocephalic, no conjunctivitis, no nasal discharge, normal pharynx Neck: No JVD or lymphadenopathy CV: RRR, no murmurs, rubs, or gallops Lungs: On room air, no respiratory distress. Diminished breath sounds in left lower lung. Otherwise lungs are clear to auscultation. GI: soft, nontender abdomen, normal bowel sounds Ext: No swelling or tenderness of the calves, discoloration, darkening of skin distal lower extremities A/P Assessment and Plan 77-year-old -Russian female with a past medical history significant for hyperlipidemia, benign essential tremor, hypertension, and A. fib. Admitted for left lower lobe pneumonia. On 06/27/17 patient developed acute respiratory failure and was transferred to the ICU with mechanical ventilation. Extubated . 07/02 on room air with some delirium and agitation. Transferred out of ICU on 07/02. Discharge Planning Transferred to ICU for acute respiratory failure, required intubation and mechanical ventilation. Extubated on 07/01, transferred out of ICU on 07/02. Discharge pending medical improvement and stability. Problem List: (1) Acute respiratory failure ICD Codes: J96.00 - Acute respiratory failure, unspecified whether with hypoxia or hypercapnia Status: Resolved Plan: Patient developed acute respiratory failure on 06/27. Transferred to the ICU with intubation and mechanical ventilation. extubated 07/01. On room air and being transferred out of ICU on 07/02. Has left lower lobe collapse on CT chest, likely mucous plug and atelectasis. * See antibiotics below * Pulse oximetry, oxygen supplementation as needed. * Left lower lobe mucous plug versus tumor, pulmonology on board for possible bronchoscopy for further evaluation. unsure if she will need bronchoscopy this hospitalization * Encourage aggressive incentive spirometry. (2) CAP (community acquired pneumonia) ICD Codes: J18.9 - Pneumonia, unspecified organism Status: Acute Plan: Patient's physical exam and imaging are suggestive of community-acquired pneumonia. Initially with fever and leukocytosis, and with acute respiratory failure. Now with leukocytosis resolved and afebrile. Blood cultures negative to date. Flu A and B negative. Sputum cultures negative. Extubated 07/01. Room air on 07/02. * Continue ceftriaxone 1 g IV every 12 hours, started 06/26 * Continue azithromycin 500 mg IV every 24 hours, started 06/26 * DuoNeb as needed shortness of breath * Incentive spirometry (3) Thyroid mass ICD Codes: E07.9 - Disorder of thyroid, unspecified Status: Acute Plan: Thyroid mass- 3.3 cm left neck mass probably thyroid on CT chest. Thyroid ultrasound: 3x3.2 cm probable thyroid nodule lower left. TSH somewhat suppressed. T4 normal. - Given critical status, reliability of thyroid function tests is poor. - Needs radionuclide scan. If functional nodule, may need methimazole and beta carlos versus radioiodine ablation. If non-functional, will need fine needle aspiration. Will pursue further as an outpatient. -over 1 cm masses should usually be biopsied, once she is medically stable (4) BENIGN HYPERTENSION Status: Chronic Plan: Patient with history of hypertension. * Continue amlodipine 10 mg daily * Continue carvedilol 6.25 mg bid * Clonidine 0.1 q8hrs (5) Asthma ICD Codes: J45.909 - Asthma Status: Chronic Plan: Patient reports history of asthma. * See breathing treatments above * Continue Pulmicort * Received one day course of IV steroids (6) Alcohol abuse ICD Codes: F10.10 - Alcohol abuse Status: Chronic Plan: Patient reports drinking 6 beers every day. * Monitor for symptoms of withdrawal * Thiamine, folic acid, multivitamin (7) Nutrition, metabolism, and development symptoms ICD Codes: R63.8 - Other symptoms and signs concerning food and fluid intake Status: Acute Plan: Diet: regular, pt advanced herself to this Monitor electrolytes and replace accordingly Fluids: PO DVT prophylaxis with heparin and SCDs Problem Qualifiers (1) CAP (community acquired pneumonia): Qualified Codes: J18.1 - Lobar pneumonia, unspecified organism (2) Asthma: Dunia Ryan MD Jul 04, 2017 12:54
[2017-07-04] MEDS: AZITHROMYCIN INJ 500 MG in SODIUM CHLOR 0.9% 250 ML INJ 250 ML IV SCH (14:30)
--- NOTE | 2017-07-04 15:52 | HHI.PR ---
Subjective Remarks 77 YOAA female with left basal opacity, atelactesis weaned to RA Denies sob Anxious to go home [employer] , walks in the room Objective Vital Signs Vital Signs Date Time Temp Pulse Resp B/P (MAP) Pulse Ox O2 Delivery O2 Flow Rate FiO2 07/04/17 12:16 97.4 68 20 141/72 (95) 96 07/04/17 07:43 98.0 66 20 158/71 (100) 94 07/04/17 05:25 97.7 69 18 149/75 (99) 98 07/04/17 01:04 97.6 73 18 185/84 (117) 96 07/03/17 20:21 97.2 79 18 134/63 (86) 95 I/O 07/03/17 07/03/17 07/03/17 07/04/17 07/04/17 07/04/17 07:00 15:00 23:00 07:00 15:00 23:00 Intake Total 650 ml Balance 650 ml Intake Oral 650 ml # Voids 4 1 3 2 2 # Bowel Movements 0 Result Diagram: 07/04/17 0450 07/04/17 0450 Objective Remarks GENERAL: Obese female, NAD SKIN: Warm and dry. HEAD: Normocephalic. EYES: No scleral icterus. No injection or drainage. NECK: Supple, trachea midline. No JVD or lymphadenopathy. CARDIOVASCULAR: Regular rate and rhythm without murmurs, gallops, or rubs. RESPIRATORY: Breath sounds equal bilaterally. No accessory muscle use. GASTROINTESTINAL: Abdomen soft, non-tender, nondistended. MUSCULOSKELETAL: No cyanosis, or edema. BACK: Nontender without obvious deformity. No CVA tenderness. A/P Assessment and Plan LLL infilt/ atelactesis Mass not ruled out Obesity HTN PLAN: Aerosol nebs Cont Abx Mucinex 1200 mg bid Encourage to use Acapella, IS Will need rpt CT as out pt to document clearing of left density Stable on RA Arturo Butt MD Jul 04, 2017 15:52
[2017-07-04] MEDS: oxyCODONE/ACETAMINOPHEN 5 MG/325 MG TAB PO PRN (17:24)
[2017-07-04] MEDS: PRAVASTATIN SOD 80 MG TAB PO SCH (21:26)
[2017-07-05] VITALS: BP 157/73; PULSE 60; PULSE 78; RESP 18; TEMP 98.6; O2SAT 98
--- NOTE | 2017-07-05 02:16 | HHI.PR ---
Addendum to Inpatient Note Addendum Reason: Additional Documentation Additional Information Patient seen and examined at 2041 on 07/04. Notified about an hour prior to that date/time about patient having a controlled fall to the floor. Per patient she fell onto her left hip/buttock. She does note some left hip pain it is mild and she can move her leg. She does not recall hitting her head. Denies CP/SOB/ lightheadedness. Physical Gen: WDWN, NAD Lungs: CTAB Heart: NRRR, no murmur MSK: NO cyanosis or edema. L hip tender over greater trochanter and to lesser degree gluteal muscles. No crepitus. L leg normal in appearance (not shortened, not externally rotated) Neuro: Awake and alert, oriented x3 A/P No apparent injury after fall. Feeling well. Low suspicion for hip fracture, consider XR in AM to rule out if pain worsened. Likely mild irritation of trochanteric bursa. Continue conservative care. Piero Ortega MD Jul 05, 2017 02:16
[2017-07-05 04:00] VITALS: BP 157/73; PULSE 79; RESP 18; TEMP 99.3; O2SAT 94
[2017-07-05 04:44] VITALS: PULSE 67
[2017-07-05] MEDS: cloNIDine HCL 0.1 MG TAB PO SCH (05:56)
[2017-07-05] MEDS: INSULIN NovoLIN REGULAR SUPPLEMENTAL SCALE SQ SCH ×2 (06:00)
[2017-07-05] MEDS: HEPARIN SODIUM - SQ 10,000 UNITS/ML VIAL SQ SCH (06:26)
[2017-07-05 08:00] VITALS: BP 128/62; PULSE 64; RESP 16; TEMP 97.9; O2SAT 96
[2017-07-05] MEDS: CHLORHEXIDINE 0.12% (ORAL KIT) 15 ML CUP MT SCH (08:00)
--- NOTE | 2017-07-05 08:09 | HHI.FPPN ---
Subjective Remarks No fevers overnight, continuing to do well on room air. Sitting up in the chair. She is in good spirits this morning. Accompanied by her grandson in the room. Grandson reports she is just about back to her baseline. She does have some generalized weakness from her stay in the ICU. She has some coughing overnight but improved. No respiratory distress. No abdominal pain, nausea, or vomiting. Objective Vitals Vital Signs Date Time Temp Pulse Resp B/P (MAP) Pulse Ox O2 Delivery O2 Flow Rate FiO2 07/05/17 04:44 67 07/05/17 04:00 99.3 79 18 157/73 (101) 94 07/05/17 00:00 98.6 78 18 157/73 (101) 98 07/05/17 00:00 60 07/04/17 20:00 69 07/04/17 20:00 98.9 81 18 164/72 (102) 98 07/04/17 16:00 98.4 72 18 146/71 (96) 96 07/04/17 15:00 64 07/04/17 12:16 97.4 68 20 141/72 (95) 96 I/O 07/04/17 07/04/17 07/04/17 07/05/17 07/05/17 07/05/17 07:00 15:00 23:00 07:00 15:00 23:00 # Voids 2 2 3 Result Diagram: 07/04/1744907/04/17449 Objective Remarks General: Sitting up in chair, no respiratory distress, on room air, good spirits Skin: No rashes or lesions, discoloration changes on legs, dry skin on legs which was fungal infection now healing per family HEENT: Normocephalic, no conjunctivitis, no nasal discharge, normal pharynx Neck: No JVD or lymphadenopathy CV: RRR, no murmurs, rubs, or gallops Lungs: On room air, no respiratory distress. Diminished breath sounds in left lower lung but somewhat improved. Otherwise lungs are clear to auscultation. GI: soft, nontender abdomen, normal bowel sounds Ext: No swelling or tenderness of the calves, discoloration, darkening of skin distal lower extremities A/P Assessment and Plan 77-year-old -[place] female with a past medical history significant for hyperlipidemia, benign essential tremor, hypertension, and A. fib. Admitted for left lower lobe pneumonia. On 06/27/17 patient developed acute respiratory failure and was transferred to the ICU with mechanical ventilation. Extubated . 07/02 on room air with some delirium and agitation. Transferred out of ICU on 07/02. On 07/05 doing well, sitting up in chair, almost back to baseline per her family. Has some generalized weakness and will need physical therapy after discharge. Discharge Planning Transferred to ICU for acute respiratory failure, required intubation and mechanical ventilation. Extubated on 07/01, transferred out of ICU on 07/02. She has a large family that visits her and willing to take care of her. At discharge she will need a wheelchair, bedside commode, and will likely go home with home health care and physical therapy. She may go home today if everything can be arranged for her at home. She will need to follow up with pulmonology after rehab with Dr. Flynn and will need a CT scan in a week or two to assess for resolution of the left lower lobe collapse/plugging/consolidation. If it is not resolved she may need bronchoscopy as an outpatient. Problem List: (1) Acute respiratory failure ICD Codes: J96.00 - Acute respiratory failure, unspecified whether with hypoxia or hypercapnia Status: Resolved Plan: Patient developed acute respiratory failure on 06/27. Transferred to the ICU with intubation and mechanical ventilation. extubated 07/01. On room air and being transferred out of ICU on 07/02. Has left lower lobe collapse on CT chest, likely mucous plug and atelectasis. * See antibiotics below * Pulse oximetry, oxygen supplementation as needed. * Left lower lobe mucous plug versus tumor, pulmonology on board for possible bronchoscopy for further evaluation. unsure if she will need bronchoscopy this hospitalization * Encourage aggressive incentive spirometry, acapella, EZ Pap. * After discharge, she will need to follow up with Dr. Flynn, cushion padder. She will need a CT scan in a few weeks to assess for resolution of left lower lobe density. If still present she may need a bronchoscopy for further evaluation. She will also need to follow closely with her PCP. (2) CAP (community acquired pneumonia) ICD Codes: J18.9 - Pneumonia, unspecified organism Status: Acute Plan: Patient's physical exam and imaging are suggestive of community-acquired pneumonia. Initially with fever and leukocytosis, and with acute respiratory failure. Now with leukocytosis resolved and afebrile. Blood cultures negative to date. Flu A and B negative. Sputum cultures negative. Extubated 07/01. Room air on 07/02. * Continue ceftriaxone 1 g IV every 12 hours, started 06/26 * Continue azithromycin 500 mg IV every 24 hours, started 06/26 * DuoNeb as needed for shortness of breath * Incentive spirometry, EZ Pap, Acapella * Will discharge home with another week of Amoxicillin. (3) Thyroid mass ICD Codes: E07.9 - Disorder of thyroid, unspecified Status: Acute Plan: Thyroid mass- 3.3 cm left neck mass probably thyroid on CT chest. Thyroid ultrasound: 3x3.2 cm probable thyroid nodule lower left. TSH somewhat suppressed. T4 normal. - Given critical status at time of testing, reliability of thyroid function tests is poor. - Likely needs fine needle aspiration of the thyroid nodule given the size, will need to arrange as an outpatient. (4) BENIGN HYPERTENSION Status: Chronic Plan: Patient with history of hypertension. * Continue amlodipine 10 mg daily * Continue carvedilol 6.25 mg bid * Clonidine 0.1 q8hrs * Allergic to lisinopril (5) Asthma ICD Codes: J45.909 - Asthma Status: Chronic Plan: Patient reports history of asthma. * Continue breathing treatments * Continue Pulmicort (6) Alcohol abuse ICD Codes: F10.10 - Alcohol abuse Status: Chronic Plan: Patient reports drinking 6 beers every day. Not in withdrawal. * Thiamine, folic acid, multivitamin (7) Nutrition, metabolism, and development symptoms ICD Codes: R63.8 - Other symptoms and signs concerning food and fluid intake Status: Acute Plan: Diet: regular, pt advanced herself to this Monitor electrolytes and replace accordingly Fluids: PO DVT prophylaxis with heparin Problem Qualifiers (1) Acute respiratory failure: Qualified Codes: J96.01 - Acute respiratory failure with hypoxia (2) CAP (community acquired pneumonia): Qualified Codes: J18.1 - Lobar pneumonia, unspecified organism (3) Asthma: Dayton Belle MD R3 Jul 05, 2017 08:09
[2017-07-05] MEDS: BUDESONIDE INH SCH (09:00)
[2017-07-05] MEDS: MULTIVITAMIN TAB PO SCH (09:18)
[2017-07-05] MEDS: FOLIC ACID 1 MG TAB PO SCH (09:18)
[2017-07-05] MEDS: CARVEDILOL 6.25 MG TAB PO SCH (09:18)
[2017-07-05] MEDS: guaiFENesin E.R. 600 MG TAB PO SCH (09:18)
[2017-07-05] MEDS: methylPREDNISolone SOD SUCC 125 MG/2 ML VIAL IV PUSH SCH (09:18)
[2017-07-05] MEDS: THIAMINE HCL 100 MG TAB PO SCH (09:18)
[2017-07-05] MEDS: SODIUM CHLORIDE 0.9% FLUSH 10 ML FLUSH IV FLUSH SCH (09:19)
[2017-07-05] MEDS: FAMOTIDINE 20 MG/2 ML VIAL IV PUSH SCH (09:19)
[2017-07-05] MEDS ORDERED: AMOX875T PO (09:22)
[2017-07-05] MEDS ORDERED: CLON.1 PO (09:22)
--- NOTE | 2017-07-05 09:22 | HHI.DCPOC ---
Discharge Care Plan Diagnosis: (1) CAP (community acquired pneumonia) (2) Acute respiratory failure Goals to Promote Your Health * To prevent worsening of your condition and complications * To maintain your health at the optimal level Directions to Meet Your Goals Take your medications as prescribed Follow your dietary instruction Follow activity as directed Keep your appointments as scheduled Take your immunizations and boosters as scheduled If your symptoms worsen call your PCP, if no PCP go to Urgent Care Center or Emergency Room Smoking is Dangerous to Your Health. Avoid second hand smoke Call the 24-hour hour crisis hotline for domestic abuse at Dayton Belle MD R3 Jul 05, 2017 09:22
[2017-07-05] MEDS ORDERED: COMMODE BEDSIDE1 MI1 (09:25)
--- NOTE | 2017-07-05 10:15 | HHI.FF ---
Face to Face Verification Diagnosis: (1) Generalized weakness (2) Mucus plugging of bronchi (3) Acute respiratory failure (4) CAP (community acquired pneumonia) (5) Thyroid mass (6) Hypokalemia (7) Shortness of breath Physical Therapy Order: Evaluate and Treat, Improve ambulation, Strength and gait training Home Health Nursing Order: Medical education Signs/symptoms of disease process Nursing assessment with vital signs I have seen patient Gely Watts on 07/05/17. My clinical findings support the need for the requested home health care services because: Ltd mobility - disease progression Patient has SOB Deconditioned w/ increased weakness High risk of falls I certify that my clinical findings support that this patient is homebound because: Unsteady gait/balance Unsafe to leave home unassisted Dayton Belle MD R3 Jul 05, 2017 10:15
[2017-07-05 10:54] LABS: HEMATOCRIT 39.6 % (35.0-46.0); HEMOGLOBIN 13.3 GM/DL (11.6-15.3); MEAN CELL VOLUME 91.4 FL (80.0-100.0); MEAN CORPUSCULAR HEMOGLOBIN 30.6 PG (27.0-34.0); MEAN CORPUSCULAR HGB CONC 33.5 % (32.0-36.0); MEAN PLATELET VOLUME 8.5 FL (7.0-11.0); PLATELET COUNT 236 TH/MM3 (150-450); RED BLOOD COUNT 4.33 MIL/MM3 (4.00-5.30); RED CELL DISTRIBUTION WIDTH 14.2 % (11.6-17.2); WHITE BLOOD COUNT 9.2 TH/MM3 (4.0-11.0)
[2017-07-05 11:16] LABS: BICARBONATE 28.6 MEQ/L (21.0-32.0); CALCIUM 7.9 MG/DL (8.5-10.1); CREATININE 0.6 MG/DL (0.50-1.00)
--- NOTE | 2017-07-05 21:01 | HHI.DS ---
Discharge Summary Admission Date Jun 25, 2017 at 13:06 Discharge Date: Jul 05, 2017 Admitting Diagnosis pneumonia, sepsis (1) Acute respiratory failure Diagnosis: Principal Plan: Patient developed acute respiratory failure on 06/27. Transferred to the ICU with intubation and mechanical ventilation. extubated 07/01. On room air and being transferred out of ICU on 07/02. Has left lower lobe collapse on CT chest, likely mucous plug and atelectasis. * See antibiotics below * Pulse oximetry, oxygen supplementation as needed. * Left lower lobe mucous plug versus tumor, pulmonology on board for possible bronchoscopy for further evaluation. unsure if she will need bronchoscopy this hospitalization * Encourage aggressive incentive spirometry, acapella, EZ Pap. * After discharge, she will need to follow up with Dr. Flynn, income tax expert. She will need a CT scan in a few weeks to assess for resolution of left lower lobe density. If still present she may need a bronchoscopy for further evaluation. She will also need to follow closely with her PCP. ICD Codes: J96.00 - Acute respiratory failure, unspecified whether with hypoxia or hypercapnia Status: Resolved (2) CAP (community acquired pneumonia) Diagnosis: Principal Plan: Patient's physical exam and imaging are suggestive of community-acquired pneumonia. Initially with fever and leukocytosis, and with acute respiratory failure. Now with leukocytosis resolved and afebrile. Blood cultures negative to date. Flu A and B negative. Sputum cultures negative. Extubated 07/01. Room air on 07/02. * Continue ceftriaxone 1 g IV every 12 hours, started 06/26 * Continue azithromycin 500 mg IV every 24 hours, started 06/26 * DuoNeb as needed for shortness of breath * Incentive spirometry, EZ Pap, Acapella * Will discharge home with another week of Amoxicillin. ICD Codes: J18.9 - Pneumonia, unspecified organism Status: Acute (3) Thyroid mass Diagnosis: Principal Plan: Thyroid mass- 3.3 cm left neck mass probably thyroid on CT chest. Thyroid ultrasound: 3x3.2 cm probable thyroid nodule lower left. TSH somewhat suppressed. T4 normal. - Given critical status at time of testing, reliability of thyroid function tests is poor. - Likely needs fine needle aspiration of the thyroid nodule given the size, will need to arrange as an outpatient. ICD Codes: E07.9 - Disorder of thyroid, unspecified Status: Acute (4) BENIGN HYPERTENSION Diagnosis: Secondary Plan: Patient with history of hypertension. * Continue amlodipine 10 mg daily * Continue carvedilol 6.25 mg bid * Clonidine 0.1 q8hrs * Allergic to lisinopril Status: Chronic (5) Asthma Diagnosis: Secondary Plan: Patient reports history of asthma. * Continue breathing treatments * Continue Pulmicort ICD Codes: J45.909 - Asthma Status: Chronic (6) Alcohol abuse Diagnosis: Secondary Plan: Patient reports drinking 6 beers every day. Not in withdrawal. * Thiamine, folic acid, multivitamin ICD Codes: F10.10 - Alcohol abuse Status: Chronic (7) Nutrition, metabolism, and development symptoms Diagnosis: Secondary Plan: Diet: regular, pt advanced herself to this Monitor electrolytes and replace accordingly Fluids: PO DVT prophylaxis with heparin ICD Codes: R63.8 - Other symptoms and signs concerning food and fluid intake Status: Acute Consultants Intensive care, pulmonology Brief History This is a 77-year-old -[place] female with a past medical history significant for hyperlipidemia, benign essential tremor, A. fib with ablation, and hypertension. She is presenting to the [facility] ED with complaints of 5 days of cough and feeling ill. She states that she has been feverish throughout the entire timeframe. She's been progressively getting weaker. Today she was extremely short of breath and was feeling chest pain, and it took several family members to get her out of the bed and into the car to take her to the hospital. She's been having increase her albuterol use but has not been getting any relief. She denies feeling nauseated, though occasionally feels like she might vomit after coughing fits. She denies any abdominal pain or diarrhea. No recorded fever at home but highest temperature here in the hospital was 101.7. Chest x-ray in the ED showed F lower lobe infiltrate. She is now being admitted to the hospital for pneumonia. CBC/BMP: 07/05/17 1040 07/05/17 1040 Significant Findings Laboratory Tests Test 07/03/17 04:15 07/04/17 04:50 07/05/17 10:40 Creatinine 0.47 MG/DL (0.50-1.00) 0.49 MG/DL (0.50-1.00) Random Glucose 150 MG/DL (74-106) 114 MG/DL (74-106) 178 MG/DL (74-106) Calcium Level 8.1 MG/DL (8.5-10.1) 8.1 MG/DL (8.5-10.1) 7.9 MG/DL (8.5-10.1) White Blood Count 11.1 TH/MM3 (4.0-11.0) Potassium Level 3.2 MEQ/L (3.5-5.1) 3.4 MEQ/L (3.5-5.1) Imaging Last 72 hours Impressions Femur X-Ray 07/03/17 0000 Signed Impressions: Service Date/Time: Monday, July 03, 2017 22:03 - CONCLUSION: No evidence of fracture. Parish Byrne MD Chest X-Ray 07/03/17 0000 Signed Impressions: Service Date/Time: Monday, July 03, 2017 05:42 - CONCLUSION: Interval extubation. Persistent pleuroparenchymal opacity primarily on the left Severo Power MD PE at Discharge General: Sitting up in chair, no respiratory distress, on room air, good spirits Skin: No rashes or lesions, discoloration changes on legs, dry skin on legs which was fungal infection now healing per family HEENT: Normocephalic, no conjunctivitis, no nasal discharge, normal pharynx Neck: No JVD or lymphadenopathy CV: RRR, no murmurs, rubs, or gallops Lungs: On room air, no respiratory distress. Diminished breath sounds in left lower lung but somewhat improved. Otherwise lungs are clear to auscultation. GI: soft, nontender abdomen, normal bowel sounds Ext: No swelling or tenderness of the calves, discoloration, darkening of skin distal lower extremities Hospital Course 77 year old female presented with community acquired left lower lobe pneumonia. Her hospital course was complicated by acute respiratory failure that resulted in admission to the intensive care unit with intubation and mechanical ventilation. She stayed several days in the intensive care unit recovering with mechanical ventilation. She was treated with ceftriaxone and azithromycin for 10 days total. She eventually was able to be extubated and transferred out of the unit. She did well after getting out of the intensive care unit, besides generalized deconditioning and weakness. By the time of discharge her respiratory status is back to baseline. She is breathing comfortably on room air. Imaging found left lower lobe consolidation versus atelectasis versus mass. Pulmonology was consulted and followed her during her stay. She will follow up with pulmonology as an outpatient and if the left lower lobe consolidation is still seen on CT scan in a few weeks, she will likely require bronchoscopy for further evaluation. A large thyroid nodule was also discovered incidentally during her stay. She will need fine needle aspiration as an outpatient to further work this up. She will be sent home with 7 more days of amoxicillin. She will follow up with her primary care provider within a week. She will be sent home with home health care and physical therapy, along with a walker and bedside commode. Precautions were given on when to return to the hospital or call her physician. Pt Condition on Discharge: Fair Discharge Disposition: Disch w/ Home Health Serv Discharge Instructions DIET: Follow Instructions for: As Tolerated, No Restrictions Speech Therapy-Diet Recommends: Regular Activities you can perform: Regular-No Restrictions Follow up Referrals: PCP Follow-up - 1 Week PCP Follow-up Pulmonology - 1 Week with Gee Flynn MD Pulmonology New Orders: BASIC METABOLIC PROF - 1 Week New Medications: Amoxicillin (Amoxicillin) 875 Mg Tab 875 MG PO BID for Infection, #14 TAB 0 Refills Commode Bedside (Commode Bedside) 1 Mis Mis EA .ROUTE DIRECTED, #1 0 Refills Walker/Adult/Folding (Walker/Adult/Folding) 1 Mis Mis EA .ROUTE DIRECTED, #1 0 Refills Clonidine (Catapres) 0.1 Mg Tab 0.1 MG PO Q8HR, #90 TAB Continued Medications: Albuterol 18 GM Inh (Ventolin Hfa 18 GM Inh) 90 Mcg/Act Aer 1 PUFF INH Q4H PRN for SHORTNESS OF BREATH, #1 INHALER 6 Refills Amlodipine (Amlodipine) 10 Mg Tab 10 MG PO DAILY for Blood Pressure Management, #90 TAB 3 Refills Budesonide Powder Inh (Pulmicort Flexhaler) 90 Mcg/Act Inhp 90 MCG INH Q12HR for Asthma Management, #1 INHALER 3 Refills Mpiqtbredj-Grqtbhbryowfo-Vfjpinbb (Fioricet) 50-300-40 Mg Cap 1 CAP PO Q4H PRN for HEADACHE, #30 CAP 0 Refills Carvedilol (Carvedilol) 6.25 Mg Tab 6.25 MG PO BID, #180 TAB 3 Refills Furosemide (Furosemide) 20 Mg Tab 20 MG PO DAILY, #30 TAB 3 Refills Isosorbide Mononitrate ER (Isosorbide Mononitrate ER) 30 Mg Slava 30 MG PO DAILY for Prevent Chest Pain, #90 TAB 3 Refills Naproxen (Naproxen) 250 Mg Tab 250 MG PO BID, #60 TAB 3 Refills Simvastatin (Simvastatin) 40 Mg Tab 40 MG PO HS for Cholesterol Management, #90 TAB 4 Refills Discontinued Medications: Propranolol (Propranolol) 60 Mg Tab 60 MG PO Q12HR, #60 TAB 4 Refills Dayton Belle MD R3 Jul 05, 2017 21:01
[2017-07-13] MEDS ORDERED: CARPAL TUNNEL W1 MIS (11:10)
--- NOTE | 2017-07-13 12:02 | PQ ---
Physician Query Response Document PATIENT: CRISTIAN VILLAGOMEZ : 1940 ADMIT DATE: 06/25/2017 1:06 PM DISCH DATE: 07/05/2017 11:24 AM RESPONDING PROVIDER #: Phuc QUERY TEXT: Rule Out Sepsis Clarification Sepsis is documented in the Medical Record. Please clarify whether: -- Patient has sepsis - Please document confirmed, suspected or probable causative organism - Please document confirmed, suspected or probable localized infection - Please clarify if sepsis is related to a device - Please clarify if sepsis was present on admission -- Sepsis was ruled out (include corresponding diagnosis for patient?s clinical picture and treatment ) -- Patient had sepsis which is resolved -- Other, please specify If you have any additional questions/comments and/or concerns, please do not hesitate to reach out to the [facility]I/Coding Hotline, Ext. [phone]. The patient's Clinical Indicators include: ED Report with Differential Diagnosis: Pneumonia versus COPD exacerbation versus influenza versus sep sis. On Admission: Lactic acid 2.1, WBC count 23.7. Vital Signs from H Consult 06/27/17 Dr. Hylton (Critical Care) - Assessment: 77-year-old female with community-acquired pneumonia and associated decompensated acute hypoxic respiratory failure. Clearly clinically worseni ng today. Also documented are severe sepsis, acute metabolic encephalopathy Dr. Buck's Progress Note 06/27/17 - Assessment and Plan #1: Plan: Patient developed acute respiratory failure this morning. Transfer to the ICU. Intubated by the intekathe sivist. Query created by: Sandra Marie on 07/12/2017 3:51 PM RESPONSE TEXT: She was septic with Pneumonia Electronically signed by: Dunia Ryan MD 07/13/2017 11:58 AM
== END 2017-07-05 11:24 | disposition home health service (06) | DRG 853 ==
LOC: NEPE 10:20 → NEDA 13:06 → N07A 14:44 → HIME 06-27 08:58 → N05B 07-02 16:40
PROVIDERS: ADMIT Family Medicine; ATTEND Family Medicine
PROC: 5A1945Z Respiratory Ventilation, 24-96 Consecutive Hours (ICD-10-PCS; principal; 2017-06-27)
PROC: 0B9J8ZX Drainage of Left Lower Lung Lobe, Via Natural or Artificial Opening Endoscopic, Diagnostic (ICD-10-PCS; 2017-06-27)
PROC: 0B978ZZ Drainage of Left Main Bronchus, Via Natural or Artificial Opening Endoscopic (ICD-10-PCS; 2017-06-27)
PROC: 0B9F8ZX Drainage of Right Lower Lung Lobe, Via Natural or Artificial Opening Endoscopic, Diagnostic (ICD-10-PCS; 2017-06-27)
PROC: 0BH17EZ Insertion of Endotracheal Airway into Trachea, Via Natural or Artificial Opening (ICD-10-PCS; 2017-06-27)
DX: A41.9 Sepsis, unspecified organism (principal); J18.9 Pneumonia, unspecified organism; J96.01 Acute respiratory failure with hypoxia; T17.890A Other foreign object in other parts of respiratory tract causing asphyxiation, initial encounter; E44.0 Moderate protein-calorie malnutrition; J96.02 Acute respiratory failure with hypercapnia; R65.20 Severe sepsis without septic shock; J98.11 Atelectasis; I10 Essential (primary) hypertension; J45.909 Unspecified asthma, uncomplicated; F10.10 Alcohol abuse, uncomplicated; E07.9 Disorder of thyroid, unspecified; G25.0 Essential tremor; E78.5 Hyperlipidemia, unspecified; J98.09 Other diseases of bronchus, not elsewhere classified; R33.9 Retention of urine, unspecified; R73.9 Hyperglycemia, unspecified; Z91.81 History of falling; E66.9 Obesity, unspecified; M25.552 Pain in left hip; E87.6 Hypokalemia
CPT/HCPCS: 31624; 36600; 71010; 71250; 73552; 76536; 76937; 80048; 80053; 81001; 82805; 82948; 83605; 83735; 84100; 84132; 84439; 84443; 84481; 84484; 85025; 85027; 85610; 85730; 87040; 87070; 87086; 87205; 87449; 87493; 87641; 87804; 93005; 94002; 94003; 94150; 94640; 94664; 94667; 94668; 96365; 96367; 96375; J0360; J0456; J0696; J1100; J1630; J1644; J1940; J2920; J2930; J3010; J3480; J7030; J7050; J7120; J7613

== ENCOUNTER → 2017-07-30 | Outpatient (CLI) | payer MEDICARE, OTHER ==
[2017-07-30 13:45] LABS: ALT (GPT) 30 U/L (10-53)
[2017-07-30 14:00] LABS: ALBUMIN 3.1 GM/DL (3.4-5.0); ALKALINE PHOSPHATASE 151 U/L (45-117); ANION GAP 11 MEQ/L (5-15); AST (GOT) 43 U/L (15-37); BICARBONATE 25.9 MEQ/L (21.0-32.0); BLOOD UREA NITROGEN 1 MG/DL (7-18); CALCIUM 9.2 MG/DL (8.5-10.1); CHLORIDE 103 MEQ/L (98-107); GLOMERULAR FILTRATION RATE 117 ML/MIN (>89); GLUCOSE,FASTING 130 MG/DL (74-99); SODIUM (NA) 140 MEQ/L (136-145); TOTAL BILIRUBIN ADULT 0.2 MG/DL (0.2-1.0); TOTAL PROTEIN 8.9 GM/DL (6.4-8.2)
[2017-07-30 15:06] LABS: POTASSIUM 3.5 MEQ/L (3.5-5.1)
== END ==
LOC: HRSP 11:49
DX: R06.89 Other abnormalities of breathing (principal); E87.6 Hypokalemia; E04.1 Nontoxic single thyroid nodule
CPT/HCPCS: 36415; 71046; 80053; 84443; 94060

== ENCOUNTER 2017-08-09 13:01 | Day surgery (SDC) | payer MEDICARE, OTHER ==
[~2017-08-09 13:01] MED LIST changes: -ALBU0.63 NEB; +AMOX875T PO; -ASPI81 PO; -CALTTAB5 PO; +CARPAL TUNNEL W1 MIS; +CLON.1 PO; +COMMODE BEDSIDE1 MI1; +FLUO0.05 TOPICAL; -FORT200S; -GABA100C4 PO; -LORTA5 PO; -NITR.3 SL; -PROP60TA PO; -PULM180I INH; -VITA500015 PO; +WALKER/ADULT/FO1 MIS
[2017-08-09 13:31] VITALS: BP 140/66; PULSE 96; RESP 20; TEMP 98.5; O2SAT 97
[2017-08-09] MEDS ORDERED: LIDOCAINE HCL 1% 20 ML VIAL ONE (14:04)
[2017-08-09 14:05] VITALS: BP 132/74; PULSE 95; RESP 18; TEMP 97.5; O2SAT 98
[2017-08-09 14:20] VITALS: BP 132/71; PULSE 93; RESP 20; O2SAT 98
--- NOTE | 2017-08-09 16:03 | RADRPT ---
EXAM DATE/TIME: 08/09/2017 13:30 [facility] COMPARISON: No previous studies available for comparison. INDICATIONS : Left thyroid nodule. MEDICAL HISTORY : Atrial fibrillation. Tremor. Asthma. Hypertension. SURGICAL HISTORY : Appendectomy. ENCOUNTER: Initial ACUITY: 1 day PAIN SCORE: 0/10 LOCATION: Left neck ORGAN: Left thyroid lobe SPECIMENS: Three fine needle aspirate(s) submitted for pathologic evaluation. DEVICE: 22 gauge needle Post procedure scanning reveals no hematoma or other complication. The possibility does exist that the tissue obtained will be non-diagnostic. If the sample is non-pancho gnostic a repeat biopsy or surgical biopsy may need to be performed. TECHNIQUE: 1. Ultrasound guidance for needle biopsy. 2. Needle biopsy. The risks, benefits and alternatives to the procedure were explained and verbal and written consent w as obtained. The site was prepped in sterile fashion. Full sterile technique was used, including ca p, mask, sterile gloves and gown and a large sterile sheet. Hand hygiene and 2% chlorhexidine and/or betadine/alcohol prep was utilized per protocol for cutaneous antisepsis. The skin and subcutaneous tissues were infiltrated with local anesthetic solution. Sterile gel and sterile probe cover were u tilized for ultrasound guidance. With the patient on the ultrasound table, images were obtained. A needle was advanced into the identified target and the number of specimens as above obtained and baxter bmitted for pathologic evaluation. The patient tolerated the procedure well and left the ultrasound suite in stable condition. CONCLUSION: Uncomplicated ultrasound guided needle biopsy. Troy Knight MD on August 09, 2017 at 16:00 Board Certified Radiologist. This report was verified electronically.
== END 2017-08-09 14:25 | disposition home or self-care (01) ==
LOC: HRAD 13:01 → HRIP 13:03 → HRAD 14:25
PROVIDERS: ATTEND Family Medicine
DX: E04.1 Nontoxic single thyroid nodule (principal); I10 Essential (primary) hypertension; I48.91 Unspecified atrial fibrillation; J45.909 Unspecified asthma, uncomplicated
CPT/HCPCS: 10022; 76942; 88172; 88173